=== PATIENT | male | born 1950 | race Caucasian/White ===

== ENCOUNTER → 2020-12-25 16:30 | Outpatient (CLI) | payer MEDICARE, MEDICAID, SELFPAY ==
[2020-12-26 09:16] LABS: Basophils # 0.1 K/mm3 (0-0.2); Basophils % 1.1 % (0.1-2.0); Eosinophils # 0.1 K/mm3 (0.0-0.4); Eosinophils % 0.7 % (0.1-12.0); Hematocrit 52.3 % (42.0-52.0); Hemoglobin 16.2 g/dL (14.1-18.0); Lymphocytes % 25.1 % (10-50); Mean Corpuscular Hemoglobin 31.6 pg (27.0-31.2); Mean Corpuscular Volume 101.8 fl (80-94); Mean Platelet Volume 9.1 fl (7.4-10.4); Monocytes # 0.7 K/mm3 (0.1-1.0); Monocytes % 9.2 % (1.7-9.3); Platelet Count 306 K/mm3 (142-424); Red Blood Count 5.13 M/mm3 (4.60-6.20); Red Cell Distribution Width 13.6 % (11.5-17.5); White Blood Count 7.8 K/mm3 (4.8-10.8)
[2020-12-26 10:04] LABS: Alanine Aminotransferase 36 U/L (12-78); Albumin Level 3.2 g/dl (3.5-5.0); Albumin/Globulin Ratio 1.2 (1.1-1.8); Alkaline Phosphatase 103 U/L (38-126); Anion Gap 14.7 mEq/L (5-15); Aspartate Amino Transferase 44 U/L (17-59); Bilirubin,Total 0.5 mg/dl (0.2-1.3); Blood Urea Nitrogen 2 mg/dl (9-20); Calcium 8.6 mg/dl (8.4-10.2); Carbon Dioxide 24 mmol/L (22.0-30.0); Chloride 101 mmol/L (98-107); Estimated Glomerular Filt Rate 298 ml/min (>60); GFR (African American) 361 ML/MIN (>60); Globulin 2.6 g/dL (1.3-3.2); Glucose 87 mg/dl (74-100); Potassium 4.7 mmoL/L (3.5-5.1); Sodium 135 mmol/L (136-145); Total Protein,Serum 5.8 g/dl (6.3-8.2)
[2020-12-26 10:20] LABS: 25-OH Vitamin D, Total 17.1 ng/mL (30-100)
[2020-12-26 10:34] LABS: Thyroid Stimulating Hormone 1.09 uIU/mL (0.465-4.68)
[2020-12-26 10:53] LABS: Vitamin B12 635 pg/mL (239-931)
[2020-12-30 11:08] LABS: Methylmalonic Acid 63 nmol/L (0-378)
== END ==
PROVIDERS: Visit Provider Internal Medicine Adolescent Medicine
DX: Z00.00 Encounter for general adult medical examination without abnormal findings (principal); R41.89 Other symptoms and signs involving cognitive functions and awareness; J43.9 Emphysema, unspecified; G89.29 Other chronic pain; E55.9 Vitamin D deficiency, unspecified; Z79.899 Other long term (current) drug therapy
CPT/HCPCS: 80053; 82131; 82306; 82607; 84443; 85025

== ENCOUNTER → 2021-01-02 18:23 | Outpatient (CLI) | payer MEDICARE, MEDICAID, SELFPAY ==
[2021-01-04 11:16] LABS: Hep A Ab, IgM Negative (Negative); Hepatitis B Core Antibody IgM Negative (Negative); Hepatitis B Surface Antigen Negative (Negative); Hepatitis C Antibody 0.1 s/co ratio (0.0-0.9)
== END ==
PROVIDERS: Visit Provider Internal Medicine Adolescent Medicine
DX: R41.89 Other symptoms and signs involving cognitive functions and awareness; Z00.00 Encounter for general adult medical examination without abnormal findings; R53.83 Other fatigue
CPT/HCPCS: 80074

== ENCOUNTER 2021-04-22 12:07 | Inpatient (IN) | payer MEDICAID, MEDICARE, SELFPAY ==
[2021-04-22] VITALS (11 sets, daily range): BP systolic 119–147; BP diastolic 54–83; PULSE 96–111; RESP 18–28; TEMP 36.7–36.9; O2SAT 96–100; BMI 27.4; BMI 19.6
--- NOTE | 2021-04-22 | ECG_ITS ---
APPROVED REPORT Exam: Resting ECG HR:112 bpm ECG Measurements Heart Rate [address] 170 P 78 QRSd 82 QRS 68 QT 330 T 77 QTc 396 Conclusion SINUS TACHYCARDIA MODERATE ST DEPRESSION [0.05+ mV ST DEPRESSION] ABNORMAL ECG UNCONFIRMED REPORT Electronically signed by : Marques Logan MD 04/26/2021 16:12:52
--- NOTE | 2021-04-22 12:23 | XR_ITS ---
FINAL REPORT CLINICAL HISTORY: dyspnea, smoker FINDINGS: A single portable view of the chest was obtained. The heart size and pulmonary vascularity are within normal limits. The mediastinum is within normal limits. There are mild pulmonary opacities, right greater than left, favor scarring. No acute pulmonary abnormality is identified. The bony thorax is intact. IMPRESSION: Mild pulmonary opacities, right greater the left, favor scarring. Follow-up radiographs may be helpful. Reviewed, Interpreted and Dictated by Alban Dailey III, MD Transcribed by JOHN Hankins Authenticated by Alban Dailey III, MD on 04/22/2021 02:42:10 PM [facility]
[2021-04-22 12:32] LABS: Basophils # 0.1 K/mm3 (0-0.2); Basophils % 0.7 % (0.1-2.0); Eosinophils # 0.1 K/mm3 (0.0-0.4); Eosinophils % 0.8 % (0.1-12.0); Hematocrit 50.4 % (42.0-52.0); Hemoglobin 16.4 g/dL (14.1-18.0); Lymphocytes # 0.9 K/mm3 (0.7-4.5); Lymphocytes % 9.5 % (10-50); Mean Corpuscular HGB Conc 32.5 g/dL (31.8-35.4); Mean Corpuscular Hemoglobin 33.3 pg (27.0-31.2); Mean Corpuscular Volume 102.5 fl (80-94); Mean Platelet Volume 8.3 fl (7.4-10.4); Monocytes # 0.8 K/mm3 (0.1-1.0); Monocytes % 8.4 % (1.7-9.3); Neutrophils # 7.5 K/mm3 (1.8-7.8); Neutrophils % 80.6 % (37.0-80.0); Platelet Count 284 K/mm3 (142-424); Red Blood Count 4.91 M/mm3 (4.60-6.20); Red Cell Distribution Width 12.9 % (11.5-17.5); White Blood Count 9.3 K/mm3 (4.8-10.8)
--- NOTE | 2021-04-22 13:00 | PC.NURSE ---
lab redrawing blood r/t hemolysis, lab is to let RT know when they can have blood for vbg
--- NOTE | 2021-04-22 13:04 | HMH.EDGENADL ---
ED Disposition Clinical Impression: COPD (chronic obstructive pulmonary disease) Disposition: Admitted As Inpatient Condition on Discharge: Good Time of Disposition: 18:15 - Critical Care Critical Care Time: No Attestation: On 04/22/21, the high probability of a clinically significant, sudden or life threatening deterioration of the following system(s) required my full and direct attention, intervention and personal management. The time I documented below is in addition to time spent performing reported procedures but includes the following listed in this critical care notation. Medical Decision Making - Medical Records Medical records reviewed: Yes: I reviewed the patient's medical records. - Jason Inquiry Pt receiving controlled substance: No Vital Signs: 04/22/21 12:07 04/22/21 12:30 04/22/21 13:00 Temperature 98.0 F Temperature Source Oral Pulse Rate 111 H 108 H Pulse Rate [Right] 110 H Respiratory Rate 20 18 28 H Blood Pressure 141/77 H 147/83 H Blood Pressure [Right Arm] 145/75 H Blood Pressure Mean 98 91 Blood Pressure Mean [Right Arm] 98 Blood Pressure Source [Right Arm] Automatic Cuff Blood Pressure Position [Right Arm] Sitting 02 Sat by Pulse Oximetry 100 97 96 Oxygen Delivery Method Nasal Cannula Nasal Cannula Nasal Cannula Oxygen Flow Rate (LPM) 2 6 6 04/22/21 13:30 04/22/21 14:30 04/22/21 14:50 Temperature 98.0 F Temperature Source Pulse Rate 111 H 105 H 105 H Pulse Rate [Right] Respiratory Rate 28 H 28 H 28 H Blood Pressure 126/78 126/54 L 126/54 L Blood Pressure [Right Arm] Blood Pressure Mean 87 78 Blood Pressure Mean [Right Arm] Blood Pressure Source [Right Arm] Blood Pressure Position [Right Arm] 02 Sat by Pulse Oximetry 98 99 Oxygen Delivery Method BiPAP BiPAP BiPAP Oxygen Flow Rate (LPM) - Lab Data Lab results reviewed: Yes: I reviewed the patient's lab results. Lab Results 04/22/21 12:05: WBC 9.3, RBC 4.91, Hgb 16.4, Hct 50.4, MCV 102.5 H, MCH 33.3 H, MCHC 32.5, RDW 12.9, Plt Count 284, MPV 8.3, Neut % (Auto) 80.6 H, Lymph % (Auto) 9.5 L, [place] % (Auto) 8.4, Eos % (Auto) 0.8, Baso % (Auto) 0.7, Neut # (Auto) 7.5, Lymph # (Auto) 0.9, [place] # (Auto) 0.8, Eos # (Auto) 0.1, Baso # (Auto) 0.1 04/22/21 12:05: Sodium 127 L, Potassium 4.7, Chloride 94 L, Carbon Dioxide 27, Anion Gap 10.7, BUN 9, Creatinine 0.50 L, Estimated Creat Clear 77, Estimated GFR 165, Est GFR ( Amer) 200, Glucose 86, Calcium 8.3 L, Total Bilirubin 1.1, AST 48, ALT 40, Alkaline Phosphatase 92, Troponin I < 0.01, Total Protein 7.0, Albumin 3.9, Globulin 3.1, Albumin/Globulin Ratio 1.3 04/22/21 12:05: SARS-CoV-2 (PCR) Not detected, Influenza A Untype (PCR) Not detected, Influenza Type B (PCR) Not detected 04/22/21 12:38: VBG pH 7.38, VBG pCO2 41.1, VBG pO2 42.8 H, VBG HCO3 24.0, VBG Total CO2 25.2, VBG O2 Saturation 80.1 H, VBG Base Excess -1.1 Result diagrams: 04/22/21 12:05 04/22/21 12:05 Orders (Tests/Meds): ED MEDICATIONS Generic Name Dose Route Start Last Admin Trade Name Freq PRN Reason Stop Dose Admin Albuterol/Ipratropium 3 ml 04/22/21 14:50 04/22/21 18:15 Ipratropium/Albuterol 3 Ml Neb 05/22/21 14:49 3 ml Q4RT FLORINDA Administration Albuterol/Ipratropium 3 ml 04/22/21 17:48 Ipratropium/Albuterol 3 Ml Neb 05/22/21 17:47 Q1HP PRN Shortness Of Breath Ceftriaxone Sodium 1 gm/ 50 mls @ 100 mls/hr 04/22/21 16:00 04/22/21 16:14 Sodium Chloride IV 05/06/21 15:59 100 mls/hr Q24H FLORINDA Administration Azithromycin 500 mg/ Sodium 250 mls @ 250 mls/hr 04/22/21 15:00 04/22/21 16:40 Chloride IV 05/06/21 14:59 250 mls/hr Q24H FLORINDA Administration Methylprednisolone Sodium Succinate 40 mg 04/22/21 15:00 04/22/21 16:40 Methylprednisolone Sod Succ 40mg Vial IV 05/22/21 14:59 40 mg Q8H FLORINDA Administration Nicotine 21 mg 04/22/21 18:00 04/22/21 18:30 Nicotine 21mg/24hr Patch TD 05/22/21 17:59 21 mg
--- NOTE | 2021-04-22 13:08 | PC.NURSE ---
ER contacted RT to come down and place pt on bipap
[2021-04-22 13:11] LABS: Chloride 94 mmol/L (98-107); Sodium 127 mmol/L (136-145)
[2021-04-22 13:12] LABS: Potassium 4.7 mmoL/L (3.5-5.1)
[2021-04-22 13:14] LABS: Alanine Aminotransferase 40 U/L (12-78); Albumin Level 3.9 g/dl (3.5-5.0); Albumin/Globulin Ratio 1.3 (1.1-1.8); Alkaline Phosphatase 92 U/L (38-126); Anion Gap 10.7 mEq/L (5-15); Aspartate Amino Transferase 48 U/L (17-59); Bilirubin,Total 1.1 mg/dl (0.2-1.3); Blood Urea Nitrogen 9 mg/dl (9-20); Calcium 8.3 mg/dl (8.4-10.2); Carbon Dioxide 27 mmol/L (22.0-30.0); Creatinine Clearance Estimated 77 mL/min (50-200); Estimated Glomerular Filt Rate 165 ml/min (>60); GFR (African American) 200 ML/MIN (>60); Globulin 3.1 g/dL (1.3-3.2); Glucose 86 mg/dl (74-100)
[2021-04-22 13:14] LABS: VBG Base Excess -1.1 mmol/L (-2.4-2.3); VBG Oxygen Saturation 80.1 % (50-70); VBG PCO2 41.1 mmol/L (35-51); VBG PH 7.38 mmol/L (7.31-7.41); VBG PO2 42.8 mmol/L (28-40); VBG Total CO2 25.2 mmol/L (23-27)
--- NOTE | 2021-04-22 13:21 | PC.NURSE ---
respiratory here to give neb tx and place pt on bipap
[2021-04-22 13:27] LABS: Troponin I < 0.01 ng/ml (0.00-0.034)
[2021-04-22 13:51] LABS: Coronavirus 19, PCR Not Detected (NotDetected); Influenza A, PCR Not Detected (NotDetected); Influenza B, PCR Not Detected (NotDetected)
--- NOTE | 2021-04-22 14:19 | PC.NURSE ---
MATTHEW MEJIA speaking with Dr. Logan
--- NOTE | 2021-04-22 14:49 | PC.NURSE ---
called report to angel cobian on second floor at this time, states she will send staff to transport pt
--- NOTE | 2021-04-22 15:13 | HMH.PHAVTE ---
[facility] Pharmacy VTE Monitoring - Patient Demographics Admission date: 04/22/21 Report Date: 04/22/21 Time: 15:13 Allergies/Adverse Reactions: Patient Allergies No Known Allergies Allergy (Verified 04/22/21 12:23) Height: 1.68 m Weight: 77.111 kg - VTE Risk Labs: VTE Related Lab Results Hgb 16.4 g/dL (14.1-18.0) 04/22/21 12:05 Hct 50.4 % (42.0-52.0) 04/22/21 12:05 Plt Count 284 K/mm3 (142-424) 04/22/21 12:05 BUN 9 mg/dl (9-20) 04/22/21 12:05 Creatinine 0.50 mg/dl (0.66-1.25) L 04/22/21 12:05 Estimated Creat Clear 77 mL/min (50-200) 04/22/21 12:05 VTE Score: 3 VTE Risk Level: Low Risk - Prophylaxis VTE Prophylaxis Ordered?: Yes Types of VTE Prophylaxis: TEDS Knee High Location of Applied Device: Bilateral Lower Extremeties
--- NOTE | 2021-04-22 17:49 | HMH.HP ---
*Admission Date: 04/22/21 *Chief complaint: Shortness of air and cough *History of present illness: 70-year-old white male, heavy smoker of 2 packs/cigarettes daily, which she is done for many many years, who has significant emphysema, is on trilogy inhalers at home. Came to the hospital with shortness of air, coughing, sputum production, he notes that he has had this for about 2 days since he came down a flight of stairs and became breathless without improving. In the ER he was found to be hypoxic, dyspneic, improved with some BiPAP and steroids, transferred to floor for further evaluation and treatment of COPD exacerbation. [facility] History I have reviewed the patient's past medical history: Yes Medical History: Reports:: Chronic Obstructive Pulmonary Disease (COPD), Hyperlipidemia, Hypertension *Have you ever received a pneumonia vaccine?: Yes *Have you received a flu vaccine this season?: Yes - *Social History Last grade of school completed: 5th or 6th Smoking Status: Current every day smoker # Packs/Day (cigarettes): 2 Alcohol Intake: current Alcohol Intake Frequency:: 3 or more drinks per day *Occupational Status:: retired Household Members: friend(s) *Travel in the last 8 weeks: None Family Hx:: Unable to obtain Review of Systems - Review of Systems Review of systems:: pertinent systems reviewed and negative unless documented below Meds Home Medications Medication Instructions Recorded Confirmed Type Fluticasone/Umeclidin/Vilanter 1 dose IH DAILY 04/22/21 04/22/21 History [Sharon Black 100-62.5-25] Allergies Allergy/AdvReac Type Severity Reaction Status Date / Time No Known Allergies Allergy Verified 04/22/21 12:23 Exam Vital signs and Labs for Last 24 Hours: Temp Pulse Resp BP Pulse Ox 98.4 F 108 H 20 119/64 96 04/22/21 15:18 04/22/21 15:18 04/22/21 15:18 04/22/21 15:18 04/22/21 16:27 Laboratory Results - last 24 hr 04/22/21 12:05: WBC 9.3, RBC 4.91, Hgb 16.4, Hct 50.4, MCV 102.5 H, MCH 33.3 H, MCHC 32.5, RDW 12.9, Plt Count 284, MPV 8.3, Neut % (Auto) 80.6 H, Lymph % (Auto) 9.5 L, [place] % (Auto) 8.4, Eos % (Auto) 0.8, Baso % (Auto) 0.7, Neut # (Auto) 7.5, Lymph # (Auto) 0.9, [place] # (Auto) 0.8, Eos # (Auto) 0.1, Baso # (Auto) 0.1 04/22/21 12:05: Sodium 127 L, Potassium 4.7, Chloride 94 L, Carbon Dioxide 27, Anion Gap 10.7, BUN 9, Creatinine 0.50 L, Estimated Creat Clear 77, Estimated GFR 165, Est GFR ( Amer) 200, Glucose 86, Calcium 8.3 L, Total Bilirubin 1.1, AST 48, ALT 40, Alkaline Phosphatase 92, Troponin I < 0.01, Total Protein 7.0, Albumin 3.9, Globulin 3.1, Albumin/Globulin Ratio 1.3 04/22/21 12:05: SARS-CoV-2 (PCR) Not detected, Influenza A Untype (PCR) Not detected, Influenza Type B (PCR) Not detected 04/22/21 12:38: VBG pH 7.38, VBG pCO2 41.1, VBG pO2 42.8 H, VBG HCO3 24.0, VBG Total CO2 25.2, VBG O2 Saturation 80.1 H, VBG Base Excess -1.1 I & O for Last 24 hours: Intake & Output 04/20/21 04/21/21 04/22/21 04/23/21 11:59 11:59 11:59 11:59 Weight 170 lb - Constitutional moderate distress, thin, chronically ill appearing, disheveled - *Routine HEENT Exam Head: Present: normocephalic Eye: Present: EOMI, PERRL ENT: Present: mucous membranes dry - *Routine Neck Exam Present: supple. Absent: lymphadenopathy - *Routine Respiratory Exam Present: prolonged expiratory phase, rales, rhonchi, wheezes (Musical wheezes in all lung hurtado with crackles) - *Routine Cardiovascular Exam Present: RRR - *Routine Abdominal Exam Present: soft, normoactive bowel sounds. Absent: tenderness - *Routine Rectal Exam Rectal:: deferred - *Routine Genitalia Exam Genitalia:: deferred - *Routine Extremities Exam Absent: cyanosis, clubbing, edema - *Routine Skin Exam Present: dry, warm. Absent: rash Comments: Multiple tattoos of variable quality on arms and chest - *Routine Neurological Exam Present: alert, oriented X3 Assessment and Plan (1) COPD (c
[2021-04-23] VITALS (10 sets, daily range): BP systolic 113–157; BP diastolic 53–86; PULSE 83–110; RESP 16–31; TEMP 36.4–36.6; O2SAT 94–100; BMI 19.5
[2021-04-23 07:19] LABS: Basophils % 0.1 % (0.1-2.0); Eosinophils % 0.1 % (0.1-12.0); Hematocrit 46.9 % (42.0-52.0); Hemoglobin 14.9 g/dL (14.1-18.0); Lymphocytes # 0.9 K/mm3 (0.7-4.5); Lymphocytes % 11.4 % (10-50); Mean Corpuscular HGB Conc 31.9 g/dL (31.8-35.4); Mean Corpuscular Hemoglobin 32.6 pg (27.0-31.2); Mean Corpuscular Volume 102.2 fl (80-94); Monocytes # 0.3 K/mm3 (0.1-1.0); Monocytes % 3.5 % (1.7-9.3); Neutrophils # 6.5 K/mm3 (1.8-7.8); Neutrophils % 84.9 % (37.0-80.0); Platelet Count 284 K/mm3 (142-424); Red Blood Count 4.59 M/mm3 (4.60-6.20); Red Cell Distribution Width 12.9 % (11.5-17.5); White Blood Count 7.6 K/mm3 (4.8-10.8)
[2021-04-23 07:34] LABS: Anion Gap 10.4 mEq/L (5-15); Blood Urea Nitrogen 15 mg/dl (9-20); Calcium 8.9 mg/dl (8.4-10.2); Carbon Dioxide 29 mmol/L (22.0-30.0); Chloride 99 mmol/L (98-107); Creatinine Clearance Estimated 62 mL/min (50-200); Estimated Glomerular Filt Rate 214 ml/min (>60); GFR (African American) 259 ML/MIN (>60); Glucose 174 mg/dl (74-100); Potassium 4.4 mmoL/L (3.5-5.1); Sodium 134 mmol/L (136-145)
--- NOTE | 2021-04-23 09:07 | HMH.PHAINT ---
Home med rec complete
--- NOTE | 2021-04-23 10:12 | HMH.ACPN2 ---
Internal Medicine - PN: Subj *Date: 04/23/21 *Time: 10:54 Interval history: 70-year-old male with severe COPD. Chronic oxygen requirement with 2 L at night. Was doing well overnight on 3 to 4 L but then switched to BiPAP this morning as he was feeling more short of breath. Continues to sound tight on exam. Higher than baseline oxygen requirement at this time. Afebrile. Denies nausea, vomiting, chest pain, fatigue. Tolerating antibiotics and steroids. tolerating PO intake. Exam Vital signs and Labs for Last 24 Hours: Temp Pulse Resp BP Pulse Ox 97.8 F 106 H 26 H 149/86 H 100 04/23/21 07:57 04/23/21 07:57 04/23/21 07:57 04/23/21 07:57 04/23/21 07:57 Laboratory Results - last 24 hr 04/22/21 12:05: WBC 9.3, RBC 4.91, Hgb 16.4, Hct 50.4, MCV 102.5 H, MCH 33.3 H, MCHC 32.5, RDW 12.9, Plt Count 284, MPV 8.3, Neut % (Auto) 80.6 H, Lymph % (Auto) 9.5 L, [place] % (Auto) 8.4, Eos % (Auto) 0.8, Baso % (Auto) 0.7, Neut # (Auto) 7.5, Lymph # (Auto) 0.9, [place] # (Auto) 0.8, Eos # (Auto) 0.1, Baso # (Auto) 0.1 04/22/21 12:05: Sodium 127 L, Potassium 4.7, Chloride 94 L, Carbon Dioxide 27, Anion Gap 10.7, BUN 9, Creatinine 0.50 L, Estimated Creat Clear 77, Estimated GFR 165, Est GFR ( Amer) 200, Glucose 86, Calcium 8.3 L, Total Bilirubin 1.1, AST 48, ALT 40, Alkaline Phosphatase 92, Troponin I < 0.01, Total Protein 7.0, Albumin 3.9, Globulin 3.1, Albumin/Globulin Ratio 1.3 04/22/21 12:05: SARS-CoV-2 (PCR) Not detected, Influenza A Untype (PCR) Not detected, Influenza Type B (PCR) Not detected 04/22/21 12:38: VBG pH 7.38, VBG pCO2 41.1, VBG pO2 42.8 H, VBG HCO3 24.0, VBG Total CO2 25.2, VBG O2 Saturation 80.1 H, VBG Base Excess -1.1 04/23/21 06:00: Sodium 134 L, Potassium 4.4, Chloride 99, Carbon Dioxide 29, Anion Gap 10.4, BUN 15 D, Creatinine 0.40 L, Estimated Creat Clear 62, Estimated GFR 214, Est GFR ( Amer) 259 D, Glucose 174 H D, Calcium 8.9 04/23/21 06:52: WBC 7.6, RBC 4.59 L, Hgb 14.9, Hct 46.9, MCV 102.2 H, MCH 32.6 H, MCHC 31.9, RDW 12.9, Plt Count 284, MPV 8.0, Neut % (Auto) 84.9 H, Lymph % (Auto) 11.4, [place] % (Auto) 3.5, Eos % (Auto) 0.1, Baso % (Auto) 0.1, Neut # (Auto) 6.5, Lymph # (Auto) 0.9, [place] # (Auto) 0.3, Eos # (Auto) 0.0, Baso # (Auto) 0.0 I & O for Last 24 hours: Intake & Output 04/20/21 04/21/21 04/22/21 04/23/21 23:59 23:59 23:59 23:59 Intake Total 360 / 360 300 / 300 Output Total 450 / 450 Balance 360 / 60 -150 / -150 Weight 62.227 kg 61.825 kg Narrative: - Constitutional Mild distress, thin, chronically ill appearing, disheveled - *Routine HEENT Exam Head: Present: normocephalic Eye: Present: EOMI, PERRL ENT: Present: mucous membranes dry - *Routine Neck Exam Present: supple. Absent: lymphadenopathy - *Routine Respiratory Exam Present: prolonged expiratory phase, rales, rhonchi, wheezes (Musical wheezes in all lung hurtado with crackles) - *Routine Cardiovascular Exam Present: RRR - *Routine Abdominal Exam Present: soft, normoactive bowel sounds. Absent: tenderness - *Routine Extremities Exam Absent: cyanosis, clubbing, edema - *Routine Skin Exam Present: dry, warm. No rash, Multiple tattoos of variable quality on arms and chest - *Routine Neurological Exam Present: alert, oriented X3 Assessment and Plan (1) Acute on chronic respiratory failure with hypoxemia Status: Acute Category: Medical Code(s): J96.21 - Acute and chronic respiratory failure with hypoxia (2) COPD (chronic obstructive pulmonary disease) Status: Acute Category: Medical Code(s): J44.9 - Chronic obstructive pulmonary disease, unspecified (3) Tobacco use disorder Status: Chronic Category: Medical Code(s): F17.200 - Nicotine dependence, unspecified, uncomplicated - Assessment and plan all Dx Assessment and Plan for all problems:: 70-year-old male with acute on chronic hypoxemic respiratory failure due to COPD exacerbation. Continues to require intermittent BiPAP t
--- NOTE | 2021-04-23 19:04 | PC.NURSE ---
Pt has done well this shift. Bipap used PRN t/o this shift d/t pt work of breathing. Pt responds well to wearing bipap.Appetite has been fair this shift. No other acute changes or complaints will continue to monitor.
[2021-04-24] VITALS (17 sets, daily range): BP systolic 108–158; BP diastolic 59–85; PULSE 94–141; RESP 18–33; TEMP 36.3–37.2; O2SAT 96–100; BMI 19.5
[2021-04-24 06:59] LABS: Anion Gap 10.7 mEq/L (5-15); Blood Urea Nitrogen 21 mg/dl (9-20); Carbon Dioxide 28 mmol/L (22.0-30.0); Chloride 102 mmol/L (98-107); Creatinine Clearance Estimated 62 mL/min (50-200); Potassium 4.7 mmoL/L (3.5-5.1); Sodium 136 mmol/L (136-145)
[2021-04-24 07:00] LABS: Estimated Glomerular Filt Rate 214 ml/min (>60); GFR (African American) 259 ML/MIN (>60); Glucose 174 mg/dl (74-100)
[2021-04-24 07:16] LABS: Basophils # 0.1 K/mm3 (0-0.2); Basophils % 0.3 % (0.1-2.0); Eosinophils % 0.1 % (0.1-12.0); Hematocrit 49.9 % (42.0-52.0); Hemoglobin 15.3 g/dL (14.1-18.0); Lymphocytes # 1.4 K/mm3 (0.7-4.5); Lymphocytes % 7.5 % (10-50); Mean Corpuscular HGB Conc 30.7 g/dL (31.8-35.4); Mean Corpuscular Hemoglobin 32.5 pg (27.0-31.2); Mean Platelet Volume 8.9 fl (7.4-10.4); Monocytes # 0.7 K/mm3 (0.1-1.0); Monocytes % 3.9 % (1.7-9.3); Neutrophils # 16.8 K/mm3 (1.8-7.8); Neutrophils % 88.3 % (37.0-80.0); Platelet Count 400 K/mm3 (142-424)
[2021-04-24 07:31] LABS: MANUAL DIFFERENTIAL MANUAL DIFFERENTIAL (MANUAL DIFF)
[2021-04-24 09:06] LABS: ABG HCO3 28.9 mmhg (22.0-26.0); ABG Oxygen Saturation 95 % (90-100); ABG PH 7.27 mmol/L (7.35-7.45); ABG PO2 80.1 mmhg (80-100); ABG TCO2 30.9 mmhg (23-27)
[2021-04-24 09:11] LABS: Oxygen 3.5 %
[2021-04-24 09:12] LABS: Allen's Test ACCEPTABLE; Source Left Radial
--- NOTE | 2021-04-24 09:12 | HMH.ACPN2 ---
Internal Medicine - PN: Subj *Date: 04/24/21 *Time: 09:12 Interval history: Overnight patient states he feels better but is required BiPAP therapy during the night because of weakness and shortness of air. When he takes it off this morning to talk to me he does become somewhat dyspneic on 3 L nasal cannula. He has been eating a little better but is globally weak. Exam Vital signs and Labs for Last 24 Hours: Temp Pulse Resp BP Pulse Ox 97.7 F 108 H 24 130/76 100 04/24/21 07:37 04/24/21 07:37 04/24/21 07:37 04/24/21 07:37 04/24/21 07:37 Laboratory Results - last 24 hr 04/24/21 05:44: WBC 19.0 H D, RBC 4.70, Hgb 15.3, Hct 49.9, MCV 106.0 H, MCH 32.5 H, MCHC 30.7 L, RDW 13.0, Plt Count 400 D, MPV 8.9, Neut % (Auto) 88.3 H, Lymph % (Auto) 7.5 L, [place] % (Auto) 3.9, Eos % (Auto) 0.1, Baso % (Auto) 0.3, Neut # (Auto) 16.8 H, Lymph # (Auto) 1.4, [place] # (Auto) 0.7, Eos # (Auto) 0.0, Baso # (Auto) 0.1 04/24/21 05:44: Sodium 136, Potassium 4.7, Chloride 102, Carbon Dioxide 28, Anion Gap 10.7, BUN 21 H D, Creatinine 0.40 L, Estimated Creat Clear 62, Estimated GFR 214, Est GFR ( Amer) 259, Glucose 174 H, Calcium 9.0 I & O for Last 24 hours: Intake & Output 04/21/21 04/22/21 04/23/21 04/24/21 11:59 11:59 11:59 11:59 Intake Total 660 / 660 480 / 480 Output Total 450 / 450 375 / 375 Balance 210 / 210 105 / 105 Weight 136 lb 3.931 oz 136 lb 9.6 oz Narrative: Patient is mildly confused on conversation, has moderate respiratory distress with coughing, rhonchi and some use of accessory muscles without his BiPAP. Lungs have crackles and rhonchi in all lung hurtado. Some expiratory wheezing. Abdomen soft, heart rate regular. He is globally weak but has no focal neurologic deficit except for some memory loss and confusion. ENT exam clear. Assessment and Plan (1) Acute on chronic respiratory failure with hypoxemia Status: Acute Category: Medical Code(s): J96.21 - Acute and chronic respiratory failure with hypoxia (2) COPD (chronic obstructive pulmonary disease) Status: Acute Category: Medical Code(s): J44.9 - Chronic obstructive pulmonary disease, unspecified (3) Tobacco use disorder Status: Chronic Category: Medical Code(s): F17.200 - Nicotine dependence, unspecified, uncomplicated - Assessment and plan all Dx Assessment and Plan for all problems:: Plan to be to continue BiPAP. He may be a candidate for trilogy device at home, I will have pulmonary see him given his severe disease today. PT and OT consultation. He may need skilled care for rehabilitation given his significant cachexia, and severe COPD.
[2021-04-24 09:14] LABS: ABG PCO2 64.7 mmhg (35.0-45.0)
--- NOTE | 2021-04-24 09:30 | HMH.PULMCON ---
*Admission Date: 04/22/21 *Reason for consult:: Acute on chronic hypoxic respiratory failure, COPD exacerbation *History of present illness: Mr. Campbell is a 70-year-old male significant smoking history carries a diagnosis of COPD on triple inhaler therapy presented to the hospital with worsening respiratory smoking and COPD exacerbation intermittently needing BiPAP since admission with no significant improvement and pulmonary was called for further management [facility] History Medical History: Reports:: Chronic Obstructive Pulmonary Disease (COPD), Hyperlipidemia, Hypertension *Have you ever received a pneumonia vaccine?: Yes *Have you received a flu vaccine this season?: Yes - *Social History Last grade of school completed: 5th or 6th Smoking Status: Current every day smoker # Packs/Day (cigarettes): 2 Alcohol Intake: current Alcohol Intake Frequency:: 3 or more drinks per day *Occupational Status:: retired Household Members: friend(s) *Travel in the last 8 weeks: None Family Hx:: Unable to obtain ROS - Cons Reports fatigue - Eyes Denies change in vision - ENT Denies nasal congestion - Card Reports shortness of breath, Reports shortness of breath with activity, Reports leg swelling - Resp Respiratory: Reports chest congestion, Reports cough, Reports excessive phlegm production, Denies coughing up blood, Denies pain on inspiration, Reports cough with sputum production, Reports wheezing - GI Gastrointestingal: Denies: abdominal pain - [place] Musculoskeletal: Reports muscle cramps, Reports muscle weakness - Psych Denies thoughts of hurting/killing others, Denies thoughts of hurting/killing yourself Meds Home Medications Medication Instructions Recorded Confirmed Type Fluticasone/Umeclidin/Vilanter 1 dose IH DAILY 04/22/21 04/22/21 History [Sharon Black 100-62.5-25] Ascorbic Acid 500 mg PO DAILY 04/23/21 04/23/21 History Allergies Allergy/AdvReac Type Severity Reaction Status Date / Time No Known Allergies Allergy Verified 04/22/21 12:23 Exam - Constitutional Constitutional:: Absent: no acute distress, comfortable - HENMT Exam HENMT: Present: normocephalic, atraumatic - Eye Exam Eyes:: Present: normal appearance both eyes and related structures - Neck Exam Neck:: Present: normal visual inspection - Respiratory Exam Respiratory:: Present: respiratory distress, rhonchi, wheezing. Absent: able to speak in complete sentences - Cardiovascular Exam Cardiac:: Present: S1, S2 - GI Exam GI:: Present: soft - Skin Exam Skin: Present: warm - Neurological Exam Neurological: Present: alert, awake - Extremities Exam Extremities: Present: no cyanosis, no clubbing, no edema Internal Medicine - CN: Reslt - Labs CBC & Chem 7: 04/24/21 05:44 04/24/21 05:44 Labs: Short CBC 04/24/21 Range/Units 05:44 WBC 19.0 H D (4.8-10.8) K/mm3 Hgb 15.3 (14.1-18.0) g/dL Hct 49.9 (42.0-52.0) % Plt Count 400 D (142-424) K/mm3 BMP 04/24/21 05:44 Sodium 136 Potassium 4.7 Chloride 102 Carbon Dioxide 28 BUN 21 H D Creatinine 0.40 L Glucose 174 H Calcium 9.0 - ABG Interpretation ABG results: 04/22/21 04/24/21 12:38 08:47 ABG pH 7.27 L ABG pCO2 64.7 H ABG pO2 80.1 ABG HCO3 28.9 H ABG Total CO2 30.9 H ABG O2 Saturation 95 ABG Base Excess 2.0 VBG pH 7.38 VBG pCO2 41.1 VBG pO2 42.8 H VBG HCO3 24.0 VBG Total CO2 25.2 VBG O2 Saturation 80.1 H VBG Base Excess -1.1 Assessment and Plan (1) Acute on chronic respiratory failure with hypoxemia Status: Acute Category: Medical Code(s): J96.21 - Acute and chronic respiratory failure with hypoxia (2) COPD (chronic obstructive pulmonary disease) Status: Acute Category: Medical Code(s): J44.9 - Chronic obstructive pulmonary disease, unspecified (3) Tobacco use disorder Status: Chronic Category: Medical Code(s): F17.200 - Nicotine dependence, uns
--- NOTE | 2021-04-24 09:33 | XR_ITS ---
FINAL REPORT CLINICAL HISTORY: hypoxia COMPARISON: 04/22/2021 FINDINGS: SINGLE VIEW CHEST The heart is normal in size. The mediastinum is unremarkable. The lungs are hyperinflated consistent with COPD. There is mild scarring. There is mild right base atelectasis or pneumonia. There is no pneumothorax. IMPRESSION: Right base atelectasis or pneumonia. Reviewed, Interpreted and Dictated by Alban Dailey III, MD Transcribed by Glendy Ponce Authenticated by Alban Dailey III, MD on 04/24/2021 11:08:37 AM [facility]
--- NOTE | 2021-04-24 09:58 | HMH.OTEV ---
OT Inpatient Evaluation Rehab OT IP Evaluation Start: 04/24/21 09:13 Freq: ONCE Status: Complete Protocol: Document 04/24/21 09:51 YAKOVPANCHO (Rec: 04/24/21 09:57 ALEX [id number]) Rehab OT IP Assessment Subjective History 70-year-old white male, heavy smoker of 2 packs/cigarettes daily, which she is done for many many years, who has significant emphysema, is on trilogy inhalers at home. Came to the hospital with shortness of air, coughing, sputum production, he notes that he has had this for about 2 days since he came down a flight of stairs and became breathless without improving. In the ER he was found to be hypoxic, dyspneic, improved with some BiPAP and steroids, transferred to floor for further evaluation and treatment of COPD exacerbation . [facility] History I have reviewed the patient's past medical history: Yes Medical History: Reports:: Chronic Obstructive Pulmonary Disease (COPD), Hyperlipidemia . Patient lives at home with dtr in 1 story home with no ROSEMARY. Patient independent with ADLs and used a RW to ambulate within the home. Subjective I can get up. Instructed Patient on safety awareness during bed mobility, transfers, ambulation and ADLs during evaluation. Patient completed bed mobility tasks independently. Patient required SBA for transfers for safety. Patient completed ADLs independently with exteded time 2* SOB. Patient is currently on 3.5L of 02 with SPO2 dropping to 85% during OOB. ~45 sec recover with needing visual and verbal
--- NOTE | 2021-04-24 10:05 | HMH.PTEV ---
Physical Therapy Evaluation Rehab PT IP Evaluation Start: 04/24/21 09:13 Freq: ONCE Status: Active Protocol: Document 04/24/21 09:59 DANILO (Rec: 04/24/21 10:05 DANILO [id number]) Subjective/History History History 70-year-old white male, heavy smoker of 2 packs/cigarettes daily, which she is done for many many years, who has significant emphysema, is on trilogy inhalers at home. Came to the hospital with shortness of air, coughing, sputum production, he notes that he has had this for about 2 days since he came down a flight of stairs and became breathless without improving. In the ER he was found to be hypoxic, dyspneic, improved with some BiPAP and steroids, transferred to floor for further evaluation and treatment of COPD exacerbation . Subjective Subjective Pt reports c/o SOA but no other complaints - o2 sats after activity 84% - return to 90% after 5 min rest Rehab PT IP Eval Objective Appearance Patient Behavior Appropriate,Cooperative, Anxious Patient Orientation Place,Name,Birthday,Year Difficulty following instructions none Speech Pattern Baseline Intonation,Baseline Volume Ambulation Patient Able to Ambulate Yes Ambulation Observation IP General Gait Pattern Observation Ataxic Gait,Shuffling Step Ambulation Distance (feet) 25 Ambulation Assistive Device Rolling Walker Ambulation Ability Contact Guard/Hand Hold Balance Ability to Arise Able, uses arms to help Sitting Balance Steady, safe Standing Balance Steady, wide stance Dynamic Sitting Balance Ability Good Dynamic Standing Balance Ability Fair Transfers Bed Transfer Ability Independent Chair Transfer Ability Independent Sit to Stand Bed Transfer Ability Supervision/Stand by,Contact Guard/Hand Hold Sit to Stand Chair Transfer Ability Supervision/Stand by,Contact Guard/Hand Hold ROM All Extremities PT ROM Status WFL MMT All Extremities PT MMT
--- NOTE | 2021-04-24 10:26 | SW/DCPLANNER ---
Addendum entered by Michelle Garay 04/24/21 14:58: Patients sister phone number is [phone] Original Note: I attempted to contact patients niece listed in demographics: this is the wrong number for niece listed. I will speak with this patient this AM regarding other contacts to discuss home situation.
[2021-04-24 11:46] LABS: Lymphocytes % 1 % (10-50); Macrocytosis 2+; Monocytes % 4 % (2-9); Neutrophils % 95 % (42-76); Platelet Estimate Normal; Total Cells Counted 100
[2021-04-24 13:27] LABS: ABG Base Excess -0.2 mmol/L (-2.4-2.3); ABG HCO3 25.2 mmhg (22.0-26.0); ABG Oxygen Saturation 95 % (90-100); ABG PCO2 45.9 mmhg (35.0-45.0); ABG PH 7.36 mmol/L (7.35-7.45); ABG PO2 72.2 mmhg (80-100); ABG TCO2 26.6 mmhg (23-27)
[2021-04-24 14:34] LABS: Allen's Test acceptable; Source Left Radial
[2021-04-24 14:35] LABS: Oxygen 25 %; Pressure Support bipap 16/8; Vent Rate 20
[2021-04-25] VITALS (13 sets, daily range): BP systolic 111–158; BP diastolic 61–92; PULSE 72–115; RESP 20–27; TEMP 36.3–36.5; O2SAT 93–98; BMI 19.0
--- NOTE | 2021-04-25 05:16 | PC.NURSE ---
pt has rested intermittently t/o shift, has worn bipap t/o shift, no complaints of pain or SOA
[2021-04-25 06:32] LABS: Basophils % 0.4 % (0.1-2.0); Eosinophils % 0.2 % (0.1-12.0); Hematocrit 49.9 % (42.0-52.0); Hemoglobin 15.5 g/dL (14.1-18.0); Lymphocytes # 0.6 K/mm3 (0.7-4.5); Lymphocytes % 6.5 % (10-50); Mean Corpuscular Hemoglobin 32.8 pg (27.0-31.2); Mean Corpuscular Volume 105.8 fl (80-94); Mean Platelet Volume 8.9 fl (7.4-10.4); Monocytes # 0.5 K/mm3 (0.1-1.0); Monocytes % 5.3 % (1.7-9.3); Neutrophils % 87.5 % (37.0-80.0); Platelet Count 287 K/mm3 (142-424); Red Blood Count 4.72 M/mm3 (4.60-6.20); White Blood Count 9.2 K/mm3 (4.8-10.8)
[2021-04-25 06:36] LABS: Anion Gap 11.7 mEq/L (5-15); Blood Urea Nitrogen 32 mg/dl (9-20); Calcium 9.1 mg/dl (8.4-10.2); Carbon Dioxide 32 mmol/L (22.0-30.0); Chloride 102 mmol/L (98-107); Creatinine Clearance Estimated 60 mL/min (50-200); Estimated Glomerular Filt Rate 165 ml/min (>60); GFR (African American) 200 ML/MIN (>60); Glucose 133 mg/dl (74-100); Potassium 4.7 mmoL/L (3.5-5.1); Sodium 141 mmol/L (136-145)
[2021-04-25 07:00] LABS: MANUAL DIFFERENTIAL MANUAL DIFFERENTIAL (MANUAL DIFF)
[2021-04-25 07:31] LABS: Lymphocytes % 7 % (10-50); Monocytes % 2 % (2-9); Neutrophils % 91 % (42-76); Platelet Estimate Normal; RBC Morphology Normal; Total Cells Counted 100
--- NOTE | 2021-04-25 09:07 | P.PN_ITS ---
Internal Medicine - PN: Subj *Date: 04/25/21 *Time: 09:07 Interval history: Appreciate pulmonary evaluation. Patient on BiPAP, appears more comfortable this morning. Alert and pleasant. Exam Vital signs and Labs for Last 24 Hours: Temp Pulse Resp BP Pulse Ox 97.4 F L 96 H 21 148/83 H 96 04/25/21 08:00 04/25/21 08:00 04/25/21 08:00 04/25/21 08:00 04/25/21 08:00 Laboratory Results - last 24 hr 04/24/21 05:44: Total Counted 100, Neutrophils % (Manual) 95 H, Lymphocytes % (Manual) 1 L, Monocytes % (Manual) 4, Platelet Estimate Normal, Macrocytosis 2+ 04/24/21 08:47: Specimen Source Left radial, O2 % 3.5, ABG pH 7.27 L, ABG pCO2 64.7 H, ABG pO2 80.1, ABG HCO3 28.9 H, ABG Total CO2 30.9 H, ABG O2 Saturation 95, ABG Base Excess 2.0, Joseph Test Acceptable 04/24/21 13:00: Specimen Source Left radial, O2 % 25, ABG pH 7.36, ABG pCO2 45.9 H, ABG pO2 72.2 L, ABG HCO3 25.2, ABG Total CO2 26.6, ABG O2 Saturation 95, ABG Base Excess -0.2, Joseph Test acceptable, Vent Rate 20 04/25/21 05:52: WBC 9.2 D, RBC 4.72, Hgb 15.5, Hct 49.9, MCV 105.8 H, MCH 32.8 H, MCHC 31.0 L, RDW 13.0, Plt Count 287 D, MPV 8.9, Neut % (Auto) 87.5 H, Lymph % (Auto) 6.5 L, [place] % (Auto) 5.3, Eos % (Auto) 0.2, Baso % (Auto) 0.4, Neut # (Auto) 8.0 H, Lymph # (Auto) 0.6 L, [place] # (Auto) 0.5, Eos # (Auto) 0.0, Baso # (Auto) 0.0, Total Counted 100, Neutrophils % (Manual) 91 H, Lymphocytes % (Manual) 7 L, Monocytes % (Manual) 2, Platelet Estimate Normal, RBC Morphology Normal 04/25/21 05:52: Sodium 141, Potassium 4.7, Chloride 102, Carbon Dioxide 32 H, Anion Gap 11.7, BUN 32 H D, Creatinine 0.50 L D, Estimated Creat Clear 60, Estimated GFR 165, Est GFR ( Amer) 200 D, Glucose 133 H, Calcium 9.1 I & O for Last 24 hours: Intake & Output 04/22/21 04/23/21 04/24/21 04/25/21 11:59 11:59 11:59 11:59 Intake Total 660 / 660 480 / 480 60 / 60 Output Total 450 / 450 375 / 375 1525 / 1525 Balance 210 / 210 105 / 105 -1465 / -1465 Weight 136 lb 3.931 oz 136 lb 9.6 oz 133 lb Narrative: Rhonchi bilaterally. Moving air slightly better than yesterday. Alert. Oropharynx clear. Heart rate regular. Abdomen soft nontender, extremities warm and dry, appears cachectic. Assessment and Plan (1) Acute on chronic respiratory failure with hypoxemia Status: Acute Category: Medical Code(s): J96.21 - Acute and chronic respiratory failure with hypoxia (2) COPD (chronic obstructive pulmonary disease) Status: Acute Category: Medical Code(s): J44.9 - Chronic obstructive pulmonary disease, unspecified (3) Tobacco use disorder Status: Chronic Category: Medical Code(s): F17.200 - Nicotine dependence, unspecified, uncomplicated (4) Protein-calorie malnutrition, mild Status: Acute Category: Medical Code(s): E44.1 - Mild protein-calorie malnutrition - Assessment and plan all Dx Assessment and Plan for all problems:: Patient stabilized on BiPAP. Appreciate pulmonary following and recommendations. Continue current antibiotics, steroids and nebulizers.
--- NOTE | 2021-04-25 09:12 | P.PN_ITS ---
Internal Medicine - PN: Subj *Date: 04/25/21 *Time: 10:49 Interval history: No acute respiratory vents overnight. Tolerated BiPAP well. Admits improvement in symptoms. Exam - Constitutional Constitutional:: Present: no acute distress, comfortable - HENMT Exam HENMT: Present: normocephalic, atraumatic - Eye Exam Eyes:: Present: normal appearance both eyes and related structures - Neck Exam Neck:: Present: normal visual inspection - Respiratory Exam Respiratory:: Present: able to speak in complete sentences, respiratory distress, wheezing - Cardiovascular Exam Cardiac:: Present: S1, S2 - GI Exam GI:: Present: soft - Skin Exam Skin: Present: warm, no rash - Neurological Exam Neurological: Present: alert, awake, normal cognition - Extremities Exam Extremities: Present: no cyanosis, no clubbing, no edema Assessment and Plan (1) Acute on chronic respiratory failure with hypoxemia Status: Acute Category: Medical Code(s): J96.21 - Acute and chronic respiratory failure with hypoxia (2) COPD (chronic obstructive pulmonary disease) Status: Acute Category: Medical Code(s): J44.9 - Chronic obstructive pulmonary disease, unspecified (3) Tobacco use disorder Status: Chronic Category: Medical Code(s): F17.200 - Nicotine dependence, unspecified, uncomplicated (4) Protein-calorie malnutrition, mild Status: Acute Category: Medical Code(s): E44.1 - Mild protein-calorie malnutrition - Assessment and plan all Dx Assessment and Plan for all problems:: #COPD exacerbation: #Acute on chronic hypoxic respiratory failure: 70-year-old male significant smoking history 3 to 4 packs a day on triple inhaler therapy at home. No recent exacerbations. Admits compliance with inhalers at home. Patient is worsening respiratory distress. Venous blood gas on admission did not show significant hypercarbia. ABG today showed worsening blood gas with hypercarbic respiratory failure. Chest x-ray on admission no significant airspace disease in bilateral interstitial opacities concerning for volume overload/vascular congestion. Patient has been receiving ceftriaxone and azithromycin since admission with DuoNebs every 4 hours scheduled and methylprednisolone 40 every 8hrs. Interval update: Patient tolerated BiPAP well overnight. Respiratory status improved. Auscultation showed improving breath sounds. Leukocytosis improving. Chest x- ray from yesterday showed worsening airspace disease. Current cultures growing yeast, no need for treatment at this point of time. We will continue to monitor. Plan: -Wean BiPAP to nasal cannula currently at 1 L with saturations maintained at 90% and above. Will Closely monitor -Continue Nebs , RT informed. -Continue current antibiotics which include ceftriaxone and azithromycin -Continue current dose of steroids. #Thank you for involving pulmonary in this patient care. We will continue to follow.
--- NOTE | 2021-04-25 09:57 | HMH.ACPN ---
Internal Medicine - PN: Subj *Date: 04/25/21 *Time: 09:57 Exam Vital signs and Labs for Last 24 Hours: Temp Pulse Resp BP Pulse Ox 97.4 F L 96 H 21 148/83 H 98 04/25/21 08:00 04/25/21 08:00 04/25/21 08:00 04/25/21 08:00 04/25/21 08:00 Laboratory Results - last 24 hr 04/24/21 05:44: Total Counted 100, Neutrophils % (Manual) 95 H, Lymphocytes % (Manual) 1 L, Monocytes % (Manual) 4, Platelet Estimate Normal, Macrocytosis 2+ 04/24/21 13:00: Specimen Source Left radial, O2 % 25, ABG pH 7.36, ABG pCO2 45.9 H, ABG pO2 72.2 L, ABG HCO3 25.2, ABG Total CO2 26.6, ABG O2 Saturation 95, ABG Base Excess -0.2, Joseph Test acceptable, Vent Rate 20 04/25/21 05:52: WBC 9.2 D, RBC 4.72, Hgb 15.5, Hct 49.9, MCV 105.8 H, MCH 32.8 H, MCHC 31.0 L, RDW 13.0, Plt Count 287 D, MPV 8.9, Neut % (Auto) 87.5 H, Lymph % (Auto) 6.5 L, [place] % (Auto) 5.3, Eos % (Auto) 0.2, Baso % (Auto) 0.4, Neut # (Auto) 8.0 H, Lymph # (Auto) 0.6 L, [place] # (Auto) 0.5, Eos # (Auto) 0.0, Baso # (Auto) 0.0, Total Counted 100, Neutrophils % (Manual) 91 H, Lymphocytes % (Manual) 7 L, Monocytes % (Manual) 2, Platelet Estimate Normal, RBC Morphology Normal 04/25/21 05:52: Sodium 141, Potassium 4.7, Chloride 102, Carbon Dioxide 32 H, Anion Gap 11.7, BUN 32 H D, Creatinine 0.50 L D, Estimated Creat Clear 60, Estimated GFR 165, Est GFR ( Amer) 200 D, Glucose 133 H, Calcium 9.1 I & O for Last 24 hours: Intake & Output 02/04/23/21 04/24/21 04/25/21 23:59 23:59 23:59 23:59 Intake Total 360 / 360 780 / 780 0 / 0 Output Total 825 / 825 1150 / 1150 375 / 375 Balance 360 / 60 -45 / -45 -1150 / -1150 -315 / -315 Weight 62.227 kg 61.8 kg 61.961 kg 60.328 kg Assessment and Plan (1) Acute on chronic respiratory failure with hypoxemia Status: Acute Category: Medical Code(s): J96.21 - Acute and chronic respiratory failure with hypoxia (2) COPD (chronic obstructive pulmonary disease) Status: Acute Category: Medical Code(s): J44.9 - Chronic obstructive pulmonary disease, unspecified (3) Tobacco use disorder Status: Chronic Category: Medical Code(s): F17.200 - Nicotine dependence, unspecified, uncomplicated (4) Protein-calorie malnutrition, mild Status: Acute Category: Medical Code(s): E44.1 - Mild protein-calorie malnutrition The patient's infection will respond to the chosen ABx?: Yes (EMPIRIC THERAPY) Is the patient receiving the right drug, dose, and route?: Yes Could a more targeted ABx be ordered?: No (NO CULTURES OBTAINED)
[2021-04-25 11:17] LABS: ABG Base Excess 0.2 mmol/L (-2.4-2.3); ABG HCO3 26.3 mmhg (22.0-26.0); ABG Oxygen Saturation 95 % (90-100); ABG PH 7.32 mmol/L (7.35-7.45); ABG PO2 73.7 mmhg (80-100); ABG TCO2 27.9 mmhg (23-27)
[2021-04-25 11:18] LABS: Allen's Test acceptable; Oxygen 25 %; Pressure Support bipap 16/8; Source Left Radial; Vent Rate 20
[2021-04-25 11:20] LABS: ABG PCO2 52.4 mmhg (35.0-45.0)
[2021-04-25 12:19] LABS: ABG Base Excess 0.8 mmol/L (-2.4-2.3); ABG HCO3 26.9 mmhg (22.0-26.0); ABG Oxygen Saturation 88 % (90-100); ABG PH 7.32 mmol/L (7.35-7.45); ABG PO2 56.9 mmhg (80-100); ABG TCO2 28.6 mmhg (23-27)
[2021-04-25 12:25] LABS: Allen's Test acceptable
[2021-04-25 12:27] LABS: ABG PCO2 54.1 mmhg (35.0-45.0)
[2021-04-25 13:02] LABS: Chloride 98 mmol/L (98-107)
[2021-04-25 13:03] LABS: Potassium 4.5 mmoL/L (3.5-5.1); Sodium 136 mmol/L (136-145)
[2021-04-25 13:05] LABS: Alanine Aminotransferase 69 U/L (12-78); Aspartate Amino Transferase 72 U/L (17-59); Blood Urea Nitrogen 32 mg/dl (9-20); Creatinine Clearance Estimated 60 mL/min (50-200); Estimated Glomerular Filt Rate 134 ml/min (>60); GFR (African American) 162 ML/MIN (>60)
[2021-04-25 13:06] LABS: Albumin Level 4.2 g/dl (3.5-5.0); Albumin/Globulin Ratio 1.4 (1.1-1.8); Alkaline Phosphatase 81 U/L (38-126); Anion Gap 13.5 mEq/L (5-15); Bilirubin,Total 0.6 mg/dl (0.2-1.3); Calcium 8.7 mg/dl (8.4-10.2); Carbon Dioxide 29 mmol/L (22.0-30.0); Glucose 150 mg/dl (74-100); Magnesium 2.4 mg/dl (1.6-2.3); Phosphorous 4.8 mg/dl (2.5-4.5); Total Protein,Serum 7.2 g/dl (6.3-8.2)
[2021-04-25 13:29] LABS: Basophils % 0.3 % (0.1-2.0); Hematocrit 51.7 % (42.0-52.0); Hemoglobin 15.8 g/dL (14.1-18.0); Lymphocytes # 0.7 K/mm3 (0.7-4.5); Lymphocytes % 4.8 % (10-50); Mean Corpuscular HGB Conc 30.5 g/dL (31.8-35.4); Mean Corpuscular Hemoglobin 32.5 pg (27.0-31.2); Mean Corpuscular Volume 106.7 fl (80-94); Mean Platelet Volume 8.6 fl (7.4-10.4); Monocytes # 0.8 K/mm3 (0.1-1.0); Monocytes % 5.4 % (1.7-9.3); Neutrophils # 13.3 K/mm3 (1.8-7.8); Neutrophils % 89.4 % (37.0-80.0); Platelet Count 361 K/mm3 (142-424); Red Blood Count 4.85 M/mm3 (4.60-6.20); White Blood Count 14.8 K/mm3 (4.8-10.8)
--- NOTE | 2021-04-25 14:11 | ECG_ITS ---
APPROVED REPORT Exam: Resting ECG HR:114 bpm ECG Measurements Heart Rate 114 AXES OR 140 P 88 QRSd 85 QRS 48 QT 337 T 76 QTc 405 Conclusion SINUS TACHYCARDIA ABNORMAL RHYTHM ECG UNCONFIRMED REPORT Electronically signed by : Marques Logan MD 04/26/2021 16:02:30
[2021-04-25 14:14] LABS: Activated Partial Thrombo Time 23.6 seconds (22.8-30.6)
--- NOTE | 2021-04-25 15:35 | PC.NURSE ---
PT IS AO3X BUT VERY HARD OF HEARING. HAS NOT BEEN ABLE TO TOLERATE COMING OFF THE BIPAP THIS SHIFT. HE BECOMES VERY TACHYPNEIC WITH AUDIBLE WHEEZING NOTED WHEN BIPAP IS REMOVED. HE DID RECEIVE A BATH AND LINEN CHANGE THIS SHIFT. NEW IV TO RIGHT AC. PT FAMILY TOLD THIS RN PT DRINKS AT LEAST 24 BEERS EACH DAY. THIS INFORMATION WAS RELAYED TO DR HERNDON WHO ORDERED CIWA AND ALCH WITHDRAWAL PROTOCOL.
[2021-04-26] VITALS (17 sets, daily range): BP systolic 105–140; BP diastolic 58–87; PULSE 80–120; RESP 20–24; TEMP 36.3–36.7; O2SAT 94–99; BMI 19.1
[2021-04-26 02:55] LABS: Amphetamine/Metha Screen,Urine Negative ng/ml (<1000)
[2021-04-26 02:56] LABS: Barbiturates Screen,Urine Negative ng/ml (<200)
[2021-04-26 02:57] LABS: Benzodiazepines Screen,Urine Negative ng/ml (<200); Cannabinoid Screen,Urine Negative ng/ml (<50)
[2021-04-26 02:58] LABS: Cocaine Screen,Urine Negative ng/ml (<300)
[2021-04-26 02:59] LABS: Methadone Screen,Urine Negative ng/ml (<300); Opiate Screen,Urine Negative ng/ml (<300)
[2021-04-26 03:00] LABS: Phencyclidine Screen,Urine Negative ng/ml (<25)
--- NOTE | 2021-04-26 07:13 | HMH.ACPN2 ---
Internal Medicine - PN: Subj *Date: 04/26/21 *Time: 08:16 Interval history: Patient is remained stable overnight on BiPAP. On 25% oxygen at this time. Appears more comfortable this morning on exam. No complaints of chest pain, nausea, vomiting, diarrhea. Exam Vital signs and Labs for Last 24 Hours: Temp Pulse Resp BP Pulse Ox 97.5 F L 83 23 110/60 97 04/26/21 04:00 04/26/21 06:13 04/26/21 04:00 04/26/21 04:00 04/26/21 06:13 Laboratory Results - last 24 hr 04/25/21 05:52: Total Counted 100, Neutrophils % (Manual) 91 H, Lymphocytes % (Manual) 7 L, Monocytes % (Manual) 2, Platelet Estimate Normal, RBC Morphology Normal 04/25/21 10:58: Specimen Source Left radial, O2 % 25, ABG pH 7.32 L, ABG pCO2 52.4 H, ABG pO2 73.7 L, ABG HCO3 26.3 H, ABG Total CO2 27.9 H, ABG O2 Saturation 95, ABG Base Excess 0.2, Joseph Test acceptable, Vent Rate 20 04/25/21 12:11: Specimen Source r radial, O2 % 2lpm, ABG pH 7.32 L, ABG pCO2 54.1 H, ABG pO2 56.9 L, ABG HCO3 26.9 H, ABG Total CO2 28.6 H, ABG O2 Saturation 88 L, ABG Base Excess 0.8, Joseph Test acceptable 04/25/21 12:15: WBC 14.8 H D, RBC 4.85, Hgb 15.8, Hct 51.7, MCV 106.7 H, MCH 32.5 H, MCHC 30.5 L, RDW 13.0, Plt Count 361 D, MPV 8.6, Neut % (Auto) 89.4 H, Lymph % (Auto) 4.8 L, [place] % (Auto) 5.4, Eos % (Auto) 0.0 L, Baso % (Auto) 0.3, Neut # (Auto) 13.3 H, Lymph # (Auto) 0.7, [place] # (Auto) 0.8, Eos # (Auto) 0.0, Baso # (Auto) 0.0 04/25/21 12:15: APTT 23.6 04/25/21 12:15: Sodium 136, Potassium 4.5, Chloride 98, Carbon Dioxide 29, Anion Gap 13.5, BUN 32 H, Creatinine 0.60 L, Estimated Creat Clear 60, Estimated GFR 134, Est GFR ( Amer) 162, Glucose 150 H, Calcium 8.7, Phosphorus 4.8 H, Magnesium 2.4 H, Total Bilirubin 0.6, AST 72 H, ALT 69, Alkaline Phosphatase 81, Total Protein 7.2, Albumin 4.2, Globulin 3.0, Albumin/Globulin Ratio 1.4 04/26/21 02:00: Urine Opiates Screen Negative, Urine Methadone Screen Negative, Ur Barbituates Screen Negative, Ur Phencyclidine Scrn Negative, Ur Amphetamines Screen Negative, U Benzodiazepines Scrn Negative, Urine Cocaine Screen Negative, U Marijuana (THC) Screen Negative I & O for Last 24 hours: Intake & Output 04/23/21 04/24/21 04/25/21 04/26/21 23:59 23:59 23:59 23:59 Intake Total 780 / 780 0 / 0 474 / 474 Output Total 825 / 825 1150 / 1150 375 / 375 225 / 225 Balance -45 / -45 -1150 / -1150 99 / 99 -225 / -225 Weight 61.8 kg 61.961 kg 60.328 kg 60.384 kg Narrative: Constitutional Constitutional:: Present: no acute distress, comfortable on BiPAP @ 25% O2 - HENMT Exam HENMT: Present: normocephalic, atraumatic - Eye Exam Eyes:: Present: normal appearance both eyes and related structures - Neck Exam Neck:: Present: normal visual inspection - Respiratory Exam Respiratory:: Present: able to speak in complete sentences, respiratory distress, wheezing diffusely - Cardiovascular Exam Cardiac:: Present: RRR, S1, S2 - GI Exam GI:: Present: soft, non-tender - Skin Exam Skin: Present: warm, no rash, numerous non-professional tattoos - Neurological Exam Neurological: Present: alert, awake, normal cognition - Extremities Exam Extremities: Present: no cyanosis, no clubbing, no edema Assessment and Plan (1) Acute on chronic respiratory failure with hypoxemia Status: Acute Category: Medical Code(s): J96.21 - Acute and chronic respiratory failure with hypoxia (2) COPD (chronic obstructive pulmonary disease) Status: Acute Category: Medical Code(s): J44.9 - Chronic obstructive pulmonary disease, unspecified (3) Tobacco use disorder Status: Chronic Category: Medical Code(s): F17.200 - Nicotine dependence, unspecified, uncomplicated (4) Protein-calorie malnutrition, mild Status: Acute Category: Medical Code(s): E44.1 - Mild protein-calorie malnutrition - Assessment and plan all Dx Assessment and Plan for all problems:: Mr. Campbell is a 70-year-old male significant smoking history 3 to 4 packs a day
[2021-04-26 08:57] LABS: Chloride 100 mmol/L (98-107); Sodium 134 mmol/L (136-145)
[2021-04-26 08:58] LABS: Potassium 4.3 mmoL/L (3.5-5.1)
[2021-04-26 09:00] LABS: Blood Urea Nitrogen 33 mg/dl (9-20); Creatinine Clearance Estimated 60 mL/min (50-200); Estimated Glomerular Filt Rate 165 ml/min (>60); GFR (African American) 200 ML/MIN (>60)
[2021-04-26 09:01] LABS: Anion Gap 8.3 mEq/L (5-15); Calcium 8.1 mg/dl (8.4-10.2); Carbon Dioxide 30 mmol/L (22.0-30.0); Glucose 135 mg/dl (74-100)
[2021-04-26 09:03] LABS: Basophils % 0.4 % (0.1-2.0); Eosinophils # 0.1 K/mm3 (0.0-0.4); Hematocrit 49.1 % (42.0-52.0); Hemoglobin 15.5 g/dL (14.1-18.0); Lymphocytes # 0.6 K/mm3 (0.7-4.5); Lymphocytes % 7.1 % (10-50); Mean Corpuscular HGB Conc 31.6 g/dL (31.8-35.4); Mean Corpuscular Hemoglobin 32.6 pg (27.0-31.2); Mean Corpuscular Volume 103.3 fl (80-94); Mean Platelet Volume 9.2 fl (7.4-10.4); Monocytes # 0.5 K/mm3 (0.1-1.0); Monocytes % 5.1 % (1.7-9.3); Neutrophils # 7.6 K/mm3 (1.8-7.8); Neutrophils % 86.4 % (37.0-80.0); Platelet Count 275 K/mm3 (142-424); Red Blood Count 4.75 M/mm3 (4.60-6.20); Red Cell Distribution Width 12.8 % (11.5-17.5); White Blood Count 8.8 K/mm3 (4.8-10.8)
--- NOTE | 2021-04-26 09:14 | P.PN_ITS ---
Internal Medicine - PN: Subj *Date: 04/26/21 *Time: 13:44 Interval history: No acute respiratory vents overnight. Patient tolerated BiPAP well., Weaned to nasal cannula this morning. Tolerating well. Exam - Constitutional Constitutional:: Present: no acute distress, comfortable - HENMT Exam HENMT: Present: normocephalic, atraumatic - Eye Exam Eyes:: Present: normal appearance both eyes and related structures - Neck Exam Neck:: Present: normal visual inspection - Respiratory Exam Respiratory:: Present: able to speak in complete sentences, no respiratory distress, decreased breath sounds, wheezing - Cardiovascular Exam Cardiac:: Present: S1, S2 - GI Exam GI:: Present: soft - Skin Exam Skin: Present: warm - Neurological Exam Neurological: Present: alert, awake, normal cognition - Extremities Exam Extremities: Present: no cyanosis, no clubbing, no edema Assessment and Plan (1) Acute on chronic respiratory failure with hypoxemia Status: Acute Category: Medical Code(s): J96.21 - Acute and chronic respiratory failure with hypoxia (2) COPD (chronic obstructive pulmonary disease) Status: Acute Category: Medical Code(s): J44.9 - Chronic obstructive pulmonary disease, unspecified (3) Tobacco use disorder Status: Chronic Category: Medical Code(s): F17.200 - Nicotine dependence, unspecified, uncomplicated (4) Protein-calorie malnutrition, mild Status: Acute Category: Medical Code(s): E44.1 - Mild protein-calorie malnutrition - Assessment and plan all Dx Assessment and Plan for all problems:: #COPD exacerbation: #Acute on chronic hypoxic respiratory failure: 70-year-old male significant smoking history 3 to 4 packs a day on triple inhaler therapy at home. No recent exacerbations. Admits compliance with inhalers at home. Patient is worsening respiratory distress. Venous blood gas on admission did not show significant hypercarbia. ABG today showed worsening blood gas with hypercarbic respiratory failure. Chest x-ray on admission no significant airspace disease in bilateral interstitial opacities concerning for volume overload/vascular congestion. Patient has been receiving ceftriaxone and azithromycin since admission with DuoNebs every 4 hours scheduled and methylprednisolone 40 every 8hrs. Interval update: Auscultation continue to show bilateral distant breath sounds and mild expiratory wheezing, though improved from prior. Leukocytosis improving. He continued to remain on CIWA protocol. Admits intake of 20-30 beers per day. Plan: -Continue nasal cannula oxygen supplementation to maintain O2 saturation goal of 90% and above. -Continue Nebs , RT informed. Can be changed to Trelegy 100 along with DuoNebs every 6 hours and as needed basis prior to discharge -Continue current antibiotics which include ceftriaxone and azithromycin, can be weaned to levofloxacin to complete a 5-day course of antibiotics prior to discharge -Continue current dose of steroids, methylprednisolone 40 every 8 hours, recommend weaning steroids to prednisone 40 mg daily if patient continues to sh ow clinical improvement. #Thank you for involving pulmonary in this patient care. We will continue to follow. Please call with any further questions or concerns that may arise over the weekend. We will also schedule full PFT 6-minute walk testing and nocturnal oximetry testing and follow the patient in pulmonary clinic in 4 to 6 weeks.
[2021-04-26 09:15] LABS: MANUAL DIFFERENTIAL MANUAL DIFFERENTIAL (MANUAL DIFF)
--- NOTE | 2021-04-26 09:17 | PC.NURSE ---
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 abnormal left pupil is his baseline.
--- NOTE | 2021-04-26 10:31 | DIET.NUTRFU ---
Addendum entered by Brittny Espinoza RD, LD 04/26/21 13:34: Continues to be unable to consume lunch d/t breathing mask Original Note: Patient ate very little yesterday d/t breathing mask most of the day. Planning to wean him today to nasal cannula. Cardiac diet in place with supplements on all trays. 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 Withdrawal protocol started yesterday, multiple vitamins in lactated ringers started, he also receiving additional vitamins. ABT in [place] in place, but no IVF ordered. Labs 134L, K 4.3, BUN 33H and Cr 0.50L, if unable to wean off mask today may need additional IVF. He now triggers for PCM, provider aware and noted, reviewing meal intake PROMOTIONAL REPRESENTATIVE with family, sounds like he was drinking most of his calories with 24 beers/day. Lack of nutritional value. Weight changes still unknown, at risk d/t decline in meal intake secondary to breathing challenges. Considered high risk with decline.
--- NOTE | 2021-04-26 11:03 | PC.NURSE ---
patient requested to be placed back on bipap due to increased work of breathing
[2021-04-26 11:26] LABS: Lymphocytes % 7 % (10-50); Macrocytosis 1+; Monocytes % 4 % (2-9); Neutrophils % 89 % (42-76); Platelet Estimate Normal; Total Cells Counted 100
--- NOTE | 2021-04-26 11:50 | SW/DCPLANNER ---
I spoke with this patients person to notify (Gilda/niece) and she stated that the plan for this patient is to discharge home with a family friend (Samira Nunez [phone]) at time of discharge. Gilda stated that patient is an alcoholic and does smoke. Patient has home O2 through [facility]. Gilda stated that patients family friend will be agreeable to home health services at time of discharge. Samira address: [facility] [address] in [facility]
[2021-04-26 18:40] LABS: Adenovirus,PCR Not Detected (NotDetected); Bordetella Pertussis Not Detected (NotDetected); Chlamydophila Pneumoniae, PCR Not Detected (NotDetected); Coronavirus 229E Not Detected (NotDetected); Coronavirus NL63 Not Detected (NotDetected); Coronovirus HKU1,PCR Not Detected (NotDetected); Human Metapneumovirus Not Detected (NotDetected); Influenza A, PCR Not Detected (NotDetected); Influenza AH1, 2009 Not Detected (NotDetected); Influenza AH1, PCR Not Detected (NotDetected); Influenza AH3,PCR Not Detected (NotDetected); Influenza B, PCR Not Detected (NotDetected); Mycoplasma Pneumoniae, PCR Not Detected (NotDetected); Parainfluenza 1, PCR Not Detected (NotDetected); Parainfluenza 2, PCR Not Detected (NotDetected); Parainfluenza 3, PCR Not Detected (NotDetected); Parainfluenza 4, PCR Not Detected (NotDetected); Respiratory Syncytial Virus Not Detected (NotDetected); Rhinovirus/Enterovirus Not Detected (NotDetected)
[2021-04-26 20:56] LABS: Coronavirus OC43 Detected (NotDetected)
[2021-04-27] VITALS (14 sets, daily range): BP systolic 104–140; BP diastolic 51–84; PULSE 70–112; RESP 20–26; TEMP 36.3–36.6; O2SAT 94–99; BMI 19.3
[2021-04-27 07:24] LABS: Basophils % 0.3 % (0.1-2.0); Eosinophils % 0.1 % (0.1-12.0); Hematocrit 49.5 % (42.0-52.0); Hemoglobin 15.4 g/dL (14.1-18.0); Lymphocytes # 0.7 K/mm3 (0.7-4.5); Mean Corpuscular HGB Conc 31.1 g/dL (31.8-35.4); Mean Corpuscular Hemoglobin 32.6 pg (27.0-31.2); Mean Corpuscular Volume 104.8 fl (80-94); Mean Platelet Volume 8.2 fl (7.4-10.4); Monocytes # 0.6 K/mm3 (0.1-1.0); Monocytes % 6.3 % (1.7-9.3); Neutrophils # 7.5 K/mm3 (1.8-7.8); Neutrophils % 85.3 % (37.0-80.0); Platelet Count 248 K/mm3 (142-424); Red Blood Count 4.72 M/mm3 (4.60-6.20); Red Cell Distribution Width 12.9 % (11.5-17.5); White Blood Count 8.8 K/mm3 (4.8-10.8)
[2021-04-27 07:28] LABS: Anion Gap 8.2 mEq/L (5-15); Blood Urea Nitrogen 28 mg/dl (9-20); Calcium 8.3 mg/dl (8.4-10.2); Carbon Dioxide 34 mmol/L (22.0-30.0); Chloride 101 mmol/L (98-107); Creatinine Clearance Estimated 61 mL/min (50-200); Estimated Glomerular Filt Rate 165 ml/min (>60); GFR (African American) 200 ML/MIN (>60); Glucose 157 mg/dl (74-100); Potassium 4.2 mmoL/L (3.5-5.1); Sodium 139 mmol/L (136-145)
[2021-04-27 07:38] LABS: MANUAL DIFFERENTIAL MANUAL DIFFERENTIAL (MANUAL DIFF)
--- NOTE | 2021-04-27 09:08 | HMH.ACPN2 ---
Internal Medicine - PN: Subj *Date: 04/27/21 *Time: 09:08 Interval history: Patient did well on BiPAP through the night yesterday. He is now on 3 L nasal cannula, acceptable oxygen saturations. Pulse rate normal. Vital signs improving. Labs reviewed with patient. Patient appears somewhat anxious. Ativan and alcohol withdrawal protocol have helped quite a bit. Patient actually states that he want to go home today. Exam Vital signs and Labs for Last 24 Hours: Temp Pulse Resp BP Pulse Ox 97.5 F L 94 H 24 128/84 97 04/27/21 07:20 04/27/21 07:20 04/27/21 07:20 04/27/21 07:20 04/27/21 07:20 Laboratory Results - last 24 hr 04/26/21 08:42: WBC 8.8 D, RBC 4.75, Hgb 15.5, Hct 49.1, MCV 103.3 H, MCH 32.6 H, MCHC 31.6 L, RDW 12.8, Plt Count 275, MPV 9.2, Neut % (Auto) 86.4 H, Lymph % (Auto) 7.1 L, [place] % (Auto) 5.1, Eos % (Auto) 1.0, Baso % (Auto) 0.4, Neut # (Auto) 7.6, Lymph # (Auto) 0.6 L, [place] # (Auto) 0.5, Eos # (Auto) 0.1, Baso # (Auto) 0.0, Total Counted 100, Neutrophils % (Manual) 89 H, Lymphocytes % (Manual) 7 L, Monocytes % (Manual) 4, Platelet Estimate Normal, Macrocytosis 1+ 04/26/21 18:30: Chlamy pneumoniae PCR Not detected, Adenovirus (PCR) Not detected, B. pertussis DNA (PCR) Not detected, Coronavirus OC43 (PCR) Detected A, Coronavirus HKU1 (PCR) Not detected, Coronavirus 229E (PCR) Not detected, Coronavirus NL63 (PCR) Not detected, Human Metapneumovir PCR Not detected, Influenza A (H1) PCR Not detected, Influ A (H1N1/09) PCR Not detected, Influenza A (H3) PCR Not detected, Influenza Type A (PCR) Not detected, Influenza Type B (PCR) Not detected, M. pneumoniae (PCR) Not detected, Parainfluenza 1 (PCR) Not detected, Parainfluenza 2 (PCR) Not detected, Parainfluenza 3 (PCR) Not detected, Parainfluenza 4 (PCR) Not detected, RSV (PCR) Not detected, Entero/Rhino (PCR) Not detected 04/27/21 06:05: WBC 8.8, RBC 4.72, Hgb 15.4, Hct 49.5, MCV 104.8 H, MCH 32.6 H, MCHC 31.1 L, RDW 12.9, Plt Count 248, MPV 8.2, Neut % (Auto) 85.3 H, Lymph % (Auto) 8.0 L, [place] % (Auto) 6.3, Eos % (Auto) 0.1, Baso % (Auto) 0.3, Neut # (Auto) 7.5, Lymph # (Auto) 0.7, [place] # (Auto) 0.6, Eos # (Auto) 0.0, Baso # (Auto) 0.0 04/27/21 06:05: Sodium 139, Potassium 4.2, Chloride 101, Carbon Dioxide 34 H, Anion Gap 8.2, BUN 28 H, Creatinine 0.50 L, Estimated Creat Clear 61, Estimated GFR 165, Est GFR ( Amer) 200, Glucose 157 H, Calcium 8.3 L I & O for Last 24 hours: Intake & Output 04/24/21 04/25/21 04/26/21 04/27/21 11:59 11:59 11:59 11:59 Intake Total 480 / 480 60 / 60 534 / 534 1331 / 1331 Output Total 375 / 375 1525 / 1525 225 / 225 700 / 700 Balance 105 / 105 -1465 / -1465 309 / 309 631 / 631 Weight 136 lb 9.6 oz 133 lb 133 lb 2 oz 135 lb 8 oz Narrative: Continues to look cachectic, some dyspnea with sentence formation but much improved. Lungs have expiratory wheezing and rhonchi bilaterally but better air movement than baseline on admission. Heart rate regular. Abdomen scaphoid and soft. Extremities warm and well-perfused. Anxious but neurologically intact otherwise. Assessment and Plan (1) Acute on chronic respiratory failure with hypoxemia Status: Acute Category: Medical Code(s): J96.21 - Acute and chronic respiratory failure with hypoxia (2) COPD (chronic obstructive pulmonary disease) Status: Acute Category: Medical Code(s): J44.9 - Chronic obstructive pulmonary disease, unspecified (3) Tobacco use disorder Status: Chronic Category: Medical Code(s): F17.200 - Nicotine dependence, unspecified, uncomplicated (4) Protein-calorie malnutrition, mild Status: Acute Category: Medical Code(s): E44.1 - Mild protein-calorie malnutrition - Assessment and plan all Dx Assessment and Plan for all problems:: Appreciate pulmonary involvement. Patient improving. Continue anxiety and alcohol withdrawal treatment. Try to stay off BiPAP today, up in a chair, encourage patient that he would need to be off
[2021-04-27 09:52] LABS: Lymphocytes % 8 % (10-50); Macrocytosis 1+; Monocytes % 7 % (2-9); Neutrophils % 85 % (42-76); Total Cells Counted 100
[2021-04-27 09:53] LABS: Platelet Estimate Normal
--- NOTE | 2021-04-27 17:03 | PC.NURSE ---
PT IS SITTING UP IN THE CHAIR. PT HAS BEEN UP OOB SINCE THIS MORNING. PT TOLERATED AMBULATING IN THE [place] WITH PHYSICAL THERAPY AND NURSING STAFF THIS SHIFT. AFTER PT AMBULATED O2 SATURATION WAS 92% ON ROOM AIR. O2 SATURATION HAS MAINTAINED 92-95% ON ROOM AIR SINCE 1200 THIS SHIFT. ACCORDING TO PT HE ONLY USES HIS OXYGEN AT HOME NEEDED. PT STATED HE AMBULATES AT HOME WITH A WALKER . LUNG SOUNDS HAVE SCATTERED WHEEZES. ABDOMEN SOFT/NON TENDER WITH ACTIVE BOWEL SOUNDS. PT WAS VERY DISAPPOINTED THIS MORNING OVER NOT BEING ABLE TO GO HOME. PT HAS BEEN MADE AWARE THAT HE HAS TO STAY OFF THE BIPAP AND BE ABLE TO SIT UP OOB AND AMBULATE. SWELLING NOTED TO RUE FROM IV INFILTRATION. NEW IV ACCESS NOTED TO WILLIAM. MULTIPLE TATTOO'S NOTED. WILL CONTINUE TO MONITOR.
[2021-04-28] VITALS: BP 132/68; PULSE 68; RESP 20; TEMP 36.7; O2SAT 97
[2021-04-28 03:57] VITALS: BP 126/62; PULSE 89; RESP 20; TEMP 36.7; O2SAT 94
[2021-04-28 04:59] VITALS: BMI 19.8
[2021-04-28 06:31] VITALS: PULSE 97; O2SAT 95
[2021-04-28 06:57] LABS: Anion Gap 8.3 mEq/L (5-15); Blood Urea Nitrogen 26 mg/dl (9-20); Calcium 8.2 mg/dl (8.4-10.2); Carbon Dioxide 30 mmol/L (22.0-30.0); Chloride 101 mmol/L (98-107); Creatinine Clearance Estimated 63 mL/min (50-200); Estimated Glomerular Filt Rate 214 ml/min (>60); GFR (African American) 259 ML/MIN (>60); Glucose 155 mg/dl (74-100); Potassium 4.3 mmoL/L (3.5-5.1); Sodium 135 mmol/L (136-145)
[2021-04-28 07:20] LABS: Basophils % 0.3 % (0.1-2.0); Eosinophils % 0.2 % (0.1-12.0); Hematocrit 48.8 % (42.0-52.0); Hemoglobin 15.3 g/dL (14.1-18.0); Lymphocytes # 0.8 K/mm3 (0.7-4.5); Lymphocytes % 7.6 % (10-50); Mean Corpuscular HGB Conc 31.3 g/dL (31.8-35.4); Mean Corpuscular Hemoglobin 32.5 pg (27.0-31.2); Mean Corpuscular Volume 103.7 fl (80-94); Monocytes # 0.7 K/mm3 (0.1-1.0); Monocytes % 6.6 % (1.7-9.3); Neutrophils # 8.5 K/mm3 (1.8-7.8); Neutrophils % 85.4 % (37.0-80.0); Platelet Count 215 K/mm3 (142-424); Red Blood Count 4.71 M/mm3 (4.60-6.20); Red Cell Distribution Width 12.8 % (11.5-17.5); White Blood Count 9.9 K/mm3 (4.8-10.8)
[2021-04-28 07:33] LABS: MANUAL DIFFERENTIAL MANUAL DIFFERENTIAL (MANUAL DIFF)
[2021-04-28 08:00] VITALS: BP 121/83; PULSE 106; RESP 22; TEMP 36.5; O2SAT 95
--- NOTE | 2021-04-28 08:38 | HMH.DCSUM ---
General - General Admission date:: 04/22/21 Discharge date: 04/28/21 HPI HPI: 70-year-old white male, heavy smoker of 2 packs/cigarettes daily, which she is done for many many years, who has significant emphysema, is on trilogy inhalers at home. Came to the hospital with shortness of air, coughing, sputum production, he notes that he has had this for about 2 days since he came down a flight of stairs and became breathless without improving. In the ER he was found to be hypoxic, dyspneic, improved with some BiPAP and steroids, transferred to floor for further evaluation and treatment of COPD exacerbation. Hospital Course Hospital Course: Patient was admitted, initially he stabilized but then worsened in regards to respiratory status, hypercapnic respiratory failure and had to be placed on BiPAP. It turned out that he is a significant abuser of alcohol, and drinks 24 to 30 cans of beer daily. He was placed on alcohol withdrawal protocols and this helped stabilize his tachypnea, shaking and improved his ventilatory status over the next couple of days. He was continued on nebulizers, steroids and antibiotics. Appreciate pulmonary consultation and input. Over the last 36 hours patient's been able to be off BiPAP, has been on nasal cannula exclusively and has been doing well and has been getting up into a chair and eating well and doing his own activities of daily living. He wishes to be discharged home. He is significantly high risk for discharge but given his current stability and his desire to go home this will be done. Plan will be to follow-up in my office very quickly, on May 01, I have scheduled the appointment personally. He has no nebulizer machines at home and we will get those arranged for him today, I will prescribe DuoNeb 4 times daily, he has a trilogy inhaler, he will continue this. We will do Omnicef, azithromycin and prednisone for his COPD exacerbation. I will do a short-term diazepam prescription to try to avoid alcohol withdrawal and encourage him to reduce his alcohol use at home. Objective Vital signs: Temp Pulse Resp BP Pulse Ox 98.1 F 97 H 20 126/62 95 04/28/21 03:57 04/28/21 06:31 04/28/21 03:57 04/28/21 03:57 04/28/21 06:31 no acute distress, thin, cachectic, chronically ill appearing Comments: Appears older than his stated age. Thorax and arms are covered with a variety of tattoos of variable quality. - *Routine HEENT Exam Head: Present: normocephalic Eye: Present: EOMI, PERRL ENT: Present: mucous membranes moist - *Routine Neck Exam Present: supple - *Routine Respiratory Exam Present: prolonged expiratory phase, rhonchi, wheezes Comments: Improved over admission exam. Remains significantly abnormal given his severe and probable end-stage COPD - *Routine Cardiovascular Exam Present: RRR - *Routine Abdominal Exam Present: soft, normoactive bowel sounds. Absent: tenderness - *Routine Extremities Exam Absent: cyanosis, clubbing, edema - *Routine Skin Exam Present: warm. Absent: rash - Detailed Eye Exam Eyelids: Bilateral normal inspection Results Labs on day of discharge: Labs from last 24 hours 04/28/21 04/28/21 04/27/21 05:45 05:45 06:05 WBC 9.9 RBC 4.71 Hgb 15.3 Hct 48.8 MCV 103.7 H MCH 32.5 H MCHC 31.3 L RDW 12.8 Plt Count 215 MPV 9.0 Neut % (Auto) 85.4 H Lymph % (Auto) 7.6 L [place] % (Auto) 6.6 Eos % (Auto) 0.2 Baso % (Auto) 0.3 Neut # (Auto) 8.5 H Lymph # (Auto) 0.8 [place] # (Auto) 0.7 Eos # (Auto) 0.0 Baso # (Auto) 0.0 Total Counted 100 Neutrophils % (Manual) 85 H Lymphocytes % (Manual) 8 L Monocytes % (Manual) 7 Platelet Estimate Normal Macrocytosis 1+ Sodium 135 L Potassium 4.3 Chloride 101 Carbon Dioxide 30 Anion Gap 8.3 BUN 26 H Creatinine 0.40 L Estimated Creat Clear 63 Estimated GFR 214 Est GFR (Afri
[2021-04-28 09:00] LABS: Lymphocytes % 8 % (10-50); Macrocytosis 1+; Monocytes % 7 % (2-9); Neutrophils % 85 % (42-76); Platelet Estimate Normal; Total Cells Counted 100
[2021-04-28 10:40] VITALS: PULSE 98; PULSE 99
--- NOTE | 2021-04-29 14:16 | CARE MANAGER ---
Did not contact patient for follow up from hospital discharge as patient was discharged and readmitted on the same day. SIMBA Barfield
== END 2021-04-28 12:47 | disposition home or self-care (01) | DRG 189 ==
LOC: ER 13:19 → 2ND 15:45
PROVIDERS: Internal Medicine Adolescent Medicine; Internal Medicine Pulmonary Disease; Admitting Provider Internal Medicine Adolescent Medicine; Emergency Provider Student in an Organized Health Care Education/Training Program; PCP Nurse Practitioner Family; Visit Provider Internal Medicine Adolescent Medicine
DX: J96.21 Acute and chronic respiratory failure with hypoxia (principal); E43 Unspecified severe protein-calorie malnutrition; U07.1 COVID-19; Z68.1 Body mass index [BMI] 19.9 or less, adult; F10.239 Alcohol dependence with withdrawal, unspecified; J43.9 Emphysema, unspecified; F17.210 Nicotine dependence, cigarettes, uncomplicated; E78.5 Hyperlipidemia, unspecified; I10 Essential (primary) hypertension; F41.9 Anxiety disorder, unspecified
CPT/HCPCS: 36415; 71045; 80048; 80053; 80305; 82803; 83735; 84100; 84484; 85007; 85025; 85730; 87486; 87581; 87632; 87798; 93005; 94640; 94660; 94761; 96374; 97110; 97116; 97162; 97165; 97530; C9803; J0456; J0696; U0003; U0005

== ENCOUNTER 2021-04-28 16:04 | Inpatient (IN) | payer MEDICAID, MEDICARE, SELFPAY ==
[2021-04-28] VITALS (14 sets, daily range): BP systolic 86–154; BP diastolic 55–109; PULSE 94–147; RESP 18–35; TEMP 35.9–36.8; O2SAT 95–98; BMI 26.6; BMI 19.8
--- NOTE | 2021-04-28 16:25 | PC.NURSE ---
RT at bedside
--- NOTE | 2021-04-28 16:27 | PC.NURSE ---
blood sent to lab by chapo curtis
[2021-04-28 16:47] LABS: ABG Base Excess -0.9 mmol/L (-2.4-2.3); ABG HCO3 27.3 mmhg (22.0-26.0); ABG Oxygen Saturation 100 % (90-100); ABG PO2 229.6 mmhg (80-100); ABG TCO2 29.5 mmhg (23-27)
[2021-04-28 17:06] LABS: Allen's Test Y; Oxygen 5 %; Source Left Radial
[2021-04-28 17:07] LABS: ABG PCO2 73.1 mmhg (35.0-45.0); ABG PH 7.19 mmol/L (7.35-7.45)
--- NOTE | 2021-04-28 17:07 | PC.NURSE ---
Pt family has came to nurses station stating that pt would not leave bipap on. [employer] Professor is in dept handling the situation.
--- NOTE | 2021-04-28 17:37 | PC.NURSE ---
talking to about admission
--- NOTE | 2021-04-28 17:40 | ECG_ITS ---
APPROVED REPORT Exam: Resting ECG HR:147 bpm ECG Measurements Heart Rate 147 AXES AL 140 P 67 QRSd 86 QRS 66 QT 320 T 75 QTc [address] DEVIATION AND MODERATE T-WAVE ABNORMALITY, CONSIDER LATERAL ISCHEMIA [-0.1+ mV T-WAVE IN I/aVL/V5/V6] ABNORMAL ECG UNCONFIRMED REPORT Electronically signed by : Marques Logan MD 04/29/2021 19:51:29
--- NOTE | 2021-04-28 17:40 | XR_ITS ---
PROCEDURE INFORMATION: Exam: XR Chest Exam date and time: 04/28/2021 5:40 PM Age: 70 years old Clinical indication: Shortness of breath; Additional info: SOA, patient on bi-pap machine. Heavy smoker. TECHNIQUE: Imaging protocol: XR of the chest. Views: 1 view. COMPARISON: CR XR CHEST PORTABLE 04/24/2021 10:36 AM FINDINGS: Airway: Patent Lungs: Diffuse chronic interstitial prominence. No significant acute interstitial or airspace disease. COPD/emphysema. Pleural spaces: Left costophrenic angle is obscured by overlying artifact. Right costophrenic angle is clear. Heart/Mediastinum: Heart is of normal size and morphology. Vasculature: Calcified aortic knob. Bones/joints: No acute skeletal abnormality or aggressive osseous lesion. IMPRESSION: Findings favor COPD exacerbation. I do not see any discrete evidence for acute pneumonia in this examination, with the caveat that the left costophrenic angle is obscured by overlying artifact.
[2021-04-28 17:49] LABS: Basophils # 0.3 K/mm3 (0-0.2); Basophils % 1.5 % (0.1-2.0); Eosinophils % 0.1 % (0.1-12.0); Hematocrit 54.8 % (42.0-52.0); Hemoglobin 16.7 g/dL (14.1-18.0); Lymphocytes # 0.8 K/mm3 (0.7-4.5); Mean Corpuscular HGB Conc 30.4 g/dL (31.8-35.4); Mean Corpuscular Hemoglobin 32.3 pg (27.0-31.2); Mean Corpuscular Volume 106.2 fl (80-94); Mean Platelet Volume 9.2 fl (7.4-10.4); Monocytes # 1.7 K/mm3 (0.1-1.0); Monocytes % 9.1 % (1.7-9.3); Neutrophils # 16.1 K/mm3 (1.8-7.8); Neutrophils % 85.3 % (37.0-80.0); Platelet Count 335 K/mm3 (142-424); Red Blood Count 5.16 M/mm3 (4.60-6.20); Red Cell Distribution Width 12.7 % (11.5-17.5); White Blood Count 18.8 K/mm3 (4.8-10.8)
[2021-04-28 17:50] LABS: Chloride 94 mmol/L (98-107)
[2021-04-28 17:51] LABS: Potassium 5.4 mmoL/L (3.5-5.1); Sodium 131 mmol/L (136-145)
[2021-04-28 17:52] LABS: MANUAL DIFFERENTIAL MANUAL DIFFERENTIAL (MANUAL DIFF)
[2021-04-28 17:53] LABS: Alanine Aminotransferase 84 U/L (12-78); Aspartate Amino Transferase 97 U/L (17-59); Blood Urea Nitrogen 30 mg/dl (9-20); Creatinine Clearance Estimated 79 mL/min (50-200); Estimated Glomerular Filt Rate 84 ml/min (>60); GFR (African American) 102 ML/MIN (>60)
[2021-04-28 17:54] LABS: Albumin Level 3.6 g/dl (3.5-5.0); Albumin/Globulin Ratio 1.3 (1.1-1.8); Alkaline Phosphatase 72 U/L (38-126); Anion Gap 9.4 mEq/L (5-15); Bilirubin,Total 0.6 mg/dl (0.2-1.3); Calcium 8.3 mg/dl (8.4-10.2); Carbon Dioxide 33 mmol/L (22.0-30.0); Globulin 2.8 g/dL (1.3-3.2); Glucose 226 mg/dl (74-100); Total Protein,Serum 6.4 g/dl (6.3-8.2)
[2021-04-28 18:06] LABS: Coronavirus 19, PCR Not Detected (NotDetected); Influenza A, PCR Not Detected (NotDetected); Influenza B, PCR Not Detected (NotDetected)
[2021-04-28 18:15] LABS: Hypochromasia 2+; Lymphocytes % 13 % (10-50); Macrocytosis 3+; Monocytes % 3 % (2-9); Neutrophils % 78 % (42-76); Platelet Estimate Normal; Total Cells Counted 100
--- NOTE | 2021-04-28 19:13 | HMH.EDGENADL ---
ED Disposition Clinical Impression: Respiratory failure with hypoxia and hypercapnia Qualifiers: Chronicity: acute on chronic Qualified Code(s): J96.21 - Acute and chronic respiratory failure with hypoxia; J96.22 - Acute and chronic respiratory failure with hypercapnia COPD (chronic obstructive pulmonary disease) Qualifiers: COPD type: unspecified COPD Qualified Code(s): J44.9 - Chronic obstructive pulmonary disease, unspecified Disposition: Admitted As Inpatient Condition on Discharge: Serious Referrals: Marques Logan MD [Primary Care Provider] - - Critical Care Critical Care Time: Yes Attestation: On 04/28/21, the high probability of a clinically significant, sudden or life threatening deterioration of the following system(s) required my full and direct attention, intervention and personal management. The time I documented below is in addition to time spent performing reported procedures but includes the following listed in this critical care notation. Total Critical Care Time: 35 Vital system(s) involved:: Respiratory Failure My critical care processes included: Assessment & monitoring of V/S, Initial and Re-exams, Data Review/Interpretation, Coordinating Care, Medication Orders and management, Documentation Medical Decision Making - Jason Inquiry Pt receiving controlled substance: Yes Jason was queried for this patient: No Reason not queried -: Emergent pt cond-no time Risks and benefits of using a controlled substance: were not discussed with pt by me Vital Signs: 04/28/21 16:04 04/28/21 17:53 04/28/21 18:00 Pulse Rate 123 H 117 H Pulse Rate [Left Radial] 147 H Respiratory Rate 35 H Blood Pressure 122/64 97/60 L Blood Pressure [Right Arm] 154/109 H Blood Pressure Mean 85 72 Blood Pressure Mean [Right Arm] 124 Blood Pressure Source [Right Arm] Automatic Cuff Blood Pressure Position [Right Arm] Sitting 02 Sat by Pulse Oximetry 98 Oxygen Delivery Method Non-Rebreather 04/28/21 18:30 04/28/21 18:40 04/28/21 19:00 Pulse Rate 109 H 109 H 100 H Pulse Rate [Left Radial] Respiratory Rate 24 Blood Pressure 86/57 L 96/55 L 90/56 L Blood Pressure [Right Arm] Blood Pressure Mean 63 68 62 Blood Pressure Mean [Right Arm] Blood Pressure Source [Right Arm] Blood Pressure Position [Right Arm] 02 Sat by Pulse Oximetry 95 95 96 Oxygen Delivery Method 04/28/21 19:21 Pulse Rate 102 H Pulse Rate [Left Radial] Respiratory Rate 24 Blood Pressure 100/62 L Blood Pressure [Right Arm] Blood Pressure Mean 74 Blood Pressure Mean [Right Arm] Blood Pressure Source [Right Arm] Blood Pressure Position [Right Arm] 02 Sat by Pulse Oximetry 96 Oxygen Delivery Method - Lab Data Lab Results 04/28/21 16:24: WBC 18.8 H D, RBC 5.16, Hgb 16.7, Hct 54.8 H, MCV 106.2 H, MCH 32.3 H, MCHC 30.4 L, RDW 12.7, Plt Count 335 D, MPV 9.2, Neut % (Auto) 85.3 H, Lymph % (Auto) 4.0 L, [place] % (Auto) 9.1, Eos % (Auto) 0.1, Baso % (Auto) 1.5, Neut # (Auto) 16.1 H, Lymph # (Auto) 0.8, [place] # (Auto) 1.7 H, Eos # (Auto) 0.0, Baso # (Auto) 0.3 H, Total Counted 100, Neutrophils % (Manual) 78 H, Band Neutrophils % 6.0, Lymphocytes % (Manual) 13, Monocytes % (Manual) 3, Platelet Estimate Normal, Hypochromasia 2+, Macrocytosis 3+ 04/28/21 16:24: Sodium 131 L, Potassium 5.4 H D, Chloride 94 L, Carbon Dioxide 33 H, Anion Gap 9.4, BUN 30 H, Creatinine 0.90 D, Estimated Creat Clear 79, Estimated GFR 84, Est GFR ( Amer) 102 D, Glucose 226 H D, Calcium 8.3 L, Total Bilirubin 0.6, AST 97 H, ALT 84 H, Alkaline Phosphatase 72, Troponin I 0.30 H, Total Protein 6.4, Albumin 3.6, Globulin 2.8, Albumin/Globulin Ratio 1.3 04/28/21 16:47: Specimen Source Left radial, O2 % 5, ABG pH 7.19 L*, ABG pCO2 73.1 H, ABG pO2 229.6 H, ABG HCO3 27.3 H, ABG Total CO2 29.5 H, ABG O2 Saturation 100, ABG Base Excess -0.9, Joseph Test Y 04/28/21 18:00: SARS-CoV-2 (PCR) Not detected, Influenza A Untype (PCR) Not detected, Influenza Type B
[2021-04-28 21:29] LABS: Troponin I 0.76 ng/ml (0.00-0.034)
--- NOTE | 2021-04-28 21:40 | PC.NURSE ---
patient up to floor via stretcher @ this time.
[2021-04-29] VITALS (11 sets, daily range): BP systolic 104–121; BP diastolic 55–73; PULSE 73–100; RESP 16–25; TEMP 36.4–37.1; O2SAT 93–97; BMI 19.8; BMI 19.7
[2021-04-29 00:25] LABS: Troponin I 0.86 ng/ml (0.00-0.034)
--- NOTE | 2021-04-29 00:36 | PC.NURSE ---
2127 Critical trop of 0.76 call from lab by Angelika Rivera. Patient , name, and result repeated back and verified. Notified Dr. Soriano. No new orders at this time will continue to monitor patient. 29 2127 Critical trop of 0.86 call from lab by Edvin. Patient , name, and result repeated back and verified. Notified Dr. Soriano. No new orders at this time will continue to monitor patient.
--- NOTE | 2021-04-29 07:27 | P.CONPHA_ITS ---
[facility] Pharmacy VTE Monitoring - Patient Demographics Admission date: 04/29/21 Report Date: 04/29/21 Time: 07:27 Allergies/Adverse Reactions: Patient Allergies No Known Allergies Allergy (Verified 04/22/21 12:23) Height: 1.75 m Weight: 60.583 kg Patient Problems: Current Active Problems COPD (chronic obstructive pulmonary disease) (Chronic) Respiratory failure with hypoxia and hypercapnia (Acute) - VTE Risk Labs: VTE Related Lab Results Hgb 16.7 g/dL (14.1-18.0) 04/28/21 16:24 Hct 54.8 % (42.0-52.0) H 04/28/21 16:24 Plt Count 335 K/mm3 (142-424) D 04/28/21 16:24 BUN 30 mg/dl (9-20) H 04/28/21 16:24 Creatinine 0.90 mg/dl (0.66-1.25) D 04/28/21 16:24 Estimated Creat Clear 79 mL/min (50-200) 04/28/21 16:24 Clinical Trial Participant: No - Prophylaxis VTE Prophylaxis Ordered?: Yes Types of VTE Prophylaxis: TEDS Knee High Location of Applied Device: Bilateral Lower Extremeties
--- NOTE | 2021-04-29 08:38 | HMH.HP ---
*Admission Date: 04/29/21 *Chief complaint: COPD exacerbation/dyspnea *History of present illness: 70-year-old white male with severe COPD who smokes multiple packs of cigarettes daily and drinks over 24 cans of beer daily. He was in the hospital last week for COPD exacerbation, had been off BiPAP for over 36 hours and yesterday essentially demanded to go home and had implied he would leave AMA without being discharged. Given his ability to do activities of daily living in the hospital and his maintenance of his O2 saturations, mental status and physical activity on nasal cannula oxygen, we arrange discharge with antibiotics, steroids, home nebulizers-which she has never had prescribed to him before-and his regular inhalers as well as short-term follow-up. Apparently he got in the car, smoked 5 or 6 cigarettes in the car on the way to his house and became dyspneic and his family became nervous and he returned back to the emergency department. Since he been off his oxygen, he was hypoxic, hypercapnic and acidotic. Placed back on BiPAP and readmitted to the hospital. This morning he feels better. [facility] History I have reviewed the patient's past medical history: Yes Medical History: Reports:: Chronic Obstructive Pulmonary Disease (COPD), Hyperlipidemia, Hypertension *Have you ever received a pneumonia vaccine?: No *Have you received a flu vaccine this season?: No - *Social History Smoking Status: Current every day smoker Tobacco Type: cigarettes # Packs/Day (cigarettes): 2 Alcohol Intake: former Alcohol Intake Frequency:: a few times a week *Occupational Status:: unemployed Household Members: friend(s) *Travel in the last 8 weeks: None Family Hx:: Unable to obtain Review of Systems - Review of Systems Review of systems:: pertinent systems reviewed and negative unless documented below Meds Home Medications Medication Instructions Recorded Confirmed Type Fluticasone/Umeclidin/Vilanter 1 dose IH DAILY 04/22/21 04/28/21 History [Trelebienvenido Ellipta 100-62.5-25] Ascorbic Acid 500 mg PO DAILY 04/23/21 04/28/21 History Azithromycin [Zithromax 250mg 250 mg PO DIRECTED 04/28/21 04/28/21 History tab] Cefdinir [Omnicef 300mg Capsule] 300 mg PO BID 04/28/21 04/28/21 History Ipratropium/Albuterol Sulfate 3 ml IH QID 04/28/21 04/28/21 History [Duoneb 3mL neb] predniSONE [Deltasone 20mg 20 mg PO BID 04/28/21 04/28/21 History tablet] Allergies Allergy/AdvReac Type Severity Reaction Status Date / Time No Known Allergies Allergy Verified 04/22/21 12:23 Exam Vital signs and Labs for Last 24 Hours: Temp Pulse Resp BP Pulse Ox 98 F 79 16 104/73 L 96 04/29/21 04:28 04/29/21 06:39 04/29/21 04:28 04/29/21 04:28 04/29/21 04:28 Laboratory Results - last 24 hr 04/28/21 16:24: WBC 18.8 H D, RBC 5.16, Hgb 16.7, Hct 54.8 H, MCV 106.2 H, MCH 32.3 H, MCHC 30.4 L, RDW 12.7, Plt Count 335 D, MPV 9.2, Neut % (Auto) 85.3 H, Lymph % (Auto) 4.0 L, [place] % (Auto) 9.1, Eos % (Auto) 0.1, Baso % (Auto) 1.5, Neut # (Auto) 16.1 H, Lymph # (Auto) 0.8, [place] # (Auto) 1.7 H, Eos # (Auto) 0.0, Baso # (Auto) 0.3 H, Total Counted 100, Neutrophils % (Manual) 78 H, Band Neutrophils % 6.0, Lymphocytes % (Manual) 13, Monocytes % (Manual) 3, Platelet Estimate Normal, Hypochromasia 2+, Macrocytosis 3+ 04/28/21 16:24: Sodium 131 L, Potassium 5.4 H D, Chloride 94 L, Carbon Dioxide 33 H, Anion Gap 9.4, BUN 30 H, Creatinine 0.90 D, Estimated Creat Clear 79, Estimated GFR 84, Est GFR ( Amer) 102 D, Glucose 226 H D, Calcium 8.3 L, Total Bilirubin 0.6, AST 97 H, ALT 84 H, Alkaline Phosphatase 72, Troponin I 0.30 H, Total Protein 6.4, Albumin 3.6, Globulin 2.8, Albumin/Globulin Ratio 1.3 04/28/21 16:47: Specimen Source Left radial, O2 % 5, ABG pH 7.19 L*, ABG pCO2 73.1 H, ABG pO2 229.6 H, ABG HCO3 27.3 H, ABG Total CO2 29.5 H, ABG O2 Saturation 100, ABG Base Excess -0.9, Joseph Test Y 04/28/21 18:00: SARS-CoV-2 (PCR) Not detecte
--- NOTE | 2021-04-29 08:51 | HMH.PHAINT ---
Home medicaiton list verified using list from [facility]
--- NOTE | 2021-04-29 09:30 | HMH.PULMCON ---
*Admission Date: 04/29/21 *History of present illness: Acute on chronic hypoxic hypercarbic respiratory failure Mr. Campbell is a 70-year-old male significant smoking history 3 to 4 packs a day, significant alcoholism history, smoked drinking 20-30 beers per day recently admitted for COPD exacerbation discharged home presented to the hospital again with worsening respiratory distress. Blood gas on this admission showed significant worsening hypercarbic respiratory failure, pH of 7.19 with a PCO2 of 73.1. No significant hypoxia noted, PO2 of 229.6. No significant changes noted on his chest x-ray from his recent discharge. [facility] History Medical History: Reports:: Chronic Obstructive Pulmonary Disease (COPD), Hyperlipidemia, Hypertension *Have you ever received a pneumonia vaccine?: No *Have you received a flu vaccine this season?: No - *Social History Smoking Status: Current every day smoker Tobacco Type: cigarettes # Packs/Day (cigarettes): 2 Alcohol Intake: former Alcohol Intake Frequency:: a few times a week *Occupational Status:: unemployed Household Members: friend(s) *Travel in the last 8 weeks: None Family Hx:: Unable to obtain ROS - Cons Denies anorexia, Denies body ache(s), Denies chills - Eyes Denies change in vision - ENT Denies hoarseness - Card Reports shortness of breath, Reports shortness of breath with activity - Resp Respiratory: Reports shortness of breath, Reports chest congestion, Reports cough, Reports dyspnea, Reports dyspnea on exertion, Denies excessive phlegm production, Denies cough with sputum production, Reports wheezing - GI Gastrointestingal: Denies: abdominal pain - [place] Musculoskeletal: Reports back pain - Psych Denies thoughts of hurting/killing others, Denies thoughts of hurting/killing yourself Meds Home Medications Medication Instructions Recorded Confirmed Type Fluticasone/Umeclidin/Vilanter 1 dose IH DAILY 04/22/21 04/28/21 History [Trelebienvenido Ellipta 100-62.5-25] Ascorbic Acid 500 mg PO DAILY 04/23/21 04/28/21 History Azithromycin [Zithromax 250mg 250 mg PO DIRECTED 04/28/21 04/28/21 History tab] Cefdinir [Omnicef 300mg Capsule] 300 mg PO BID 04/28/21 04/28/21 History Ipratropium/Albuterol Sulfate 3 ml IH QID 04/28/21 04/28/21 History [Duoneb 3mL neb] predniSONE [Deltasone 20mg 20 mg PO BID 04/28/21 04/28/21 History tablet] Ergocalciferol (Vitamin D2) 1,250 mcg PO .2 TIMES PER WEEK 04/29/21 04/29/21 History [Vitamin D2] Fluticasone/Umeclidin/Vilanter 1 puff IH DAILY 04/29/21 04/29/21 History [Trelegy Ellipta 100-62.5-25] Allergies Allergy/AdvReac Type Severity Reaction Status Date / Time No Known Allergies Allergy Verified 04/22/21 12:23 Exam - Constitutional Constitutional:: Present: no acute distress, comfortable - HENMT Exam HENMT: Present: normocephalic - Eye Exam Eyes:: Present: normal appearance both eyes and related structures - Neck Exam Neck:: Present: normal visual inspection - Respiratory Exam Respiratory:: Present: able to speak in complete sentences, no respiratory distress, decreased breath sounds, wheezing - Cardiovascular Exam Cardiac:: Present: S1, S2 - GI Exam GI:: Present: soft, no hepatosplenomegaly - Skin Exam Skin: Present: warm, no rash - Neurological Exam Neurological: Present: alert, awake, normal cognition - Extremities Exam Extremities: Present: no cyanosis, no clubbing, no edema Internal Medicine - CN: Reslt - Labs CBC & Chem 7: 04/28/21 16:24 04/28/21 16:24 Labs: Short CBC 04/28/21 Range/Units 16:24 WBC 18.8 H D (4.8-10.8) K/mm3 Hgb 16.7 (14.1-18.0) g/dL Hct 54.8 H (42.0-52.0) % Plt Count 335 D (142-424) K/mm3 BMP 04/28/21 16:24 Sodium 131 L Potassium 5.4 H D Chloride 94 L Carbon Dioxide 33 H BUN 30 H Creatinine 0.90 D Glucose 226 H D Calcium 8.3 L Cardiac Enzymes 04/28/21 04/28/21 04/28/21 Range/Un
--- NOTE | 2021-04-29 14:36 | CT_ITS ---
FINAL REPORT CLINICAL HISTORY: Respiratory failure, SOA FINDINGS: Thin section axial CT images of the chest were obtained with contrast. 3D reformatted images were also obtained. This study was performed with techniques to keep radiation doses as low as reasonably achievable (ALARA). Individualized dose reduction techniques using automated exposure control or adjustment of mA and/or kV according to the patient''s size were employed. There is no evidence of pulmonary embolism. There is no evidence of thoracic aortic aneurysm or dissection. There is no evidence of mediastinal or hilar mass or adenopathy. There is no evidence of pulmonary mass or nodule. No localized inflammatory process is seen within the lungs. There is mild scarring and mild emphysema. There is mild atelectasis at the lung bases. Limited images of the upper abdomen demonstrate mild left adrenal gland enlargement, likely an adenoma or hyperplasia. IMPRESSION: No evidence of pulmonary embolism. No mass or localized inflammatory process. Reviewed, Interpreted and Dictated by Alban Dailey III, MD Transcribed by Glendy Ponce Authenticated by Alban Dailey III, MD on 04/30/2021 08:13:00 AM [facility]
[2021-04-29 16:30] LABS: ABG Base Excess 2.5 mmol/L (-2.4-2.3); ABG HCO3 26.2 mmhg (22.0-26.0); ABG Oxygen Saturation 98 % (90-100); ABG PCO2 37.4 mmhg (35.0-45.0); ABG PH 7.46 mmol/L (7.35-7.45); ABG PO2 92.4 mmhg (80-100); ABG TCO2 27.4 mmhg (23-27)
[2021-04-29 16:32] LABS: Allen's Test acceptable; Oxygen 2 %; Source Right Radial
[2021-04-30] VITALS (16 sets, daily range): BP systolic 114–148; BP diastolic 60–74; PULSE 78–110; RESP 22–28; TEMP 36.6–36.8; O2SAT 93–99
[2021-04-30 06:54] LABS: Basophils # 0.1 K/mm3 (0-0.2); Basophils % 1.2 % (0.1-2.0); Eosinophils # 0.1 K/mm3 (0.0-0.4); Eosinophils % 0.4 % (0.1-12.0); Hematocrit 45.9 % (42.0-52.0); Hemoglobin 13.9 g/dL (14.1-18.0); Lymphocytes # 0.5 K/mm3 (0.7-4.5); Lymphocytes % 3.8 % (10-50); Mean Corpuscular HGB Conc 30.3 g/dL (31.8-35.4); Mean Corpuscular Hemoglobin 32.1 pg (27.0-31.2); Mean Corpuscular Volume 105.8 fl (80-94); Mean Platelet Volume 8.7 fl (7.4-10.4); Monocytes # 0.4 K/mm3 (0.1-1.0); Monocytes % 3.3 % (1.7-9.3); Neutrophils # 11.1 K/mm3 (1.8-7.8); Neutrophils % 91.2 % (37.0-80.0); Platelet Count 161 K/mm3 (142-424); Red Blood Count 4.34 M/mm3 (4.60-6.20); White Blood Count 12.2 K/mm3 (4.8-10.8)
[2021-04-30 07:03] LABS: Alanine Aminotransferase 55 U/L (12-78); Albumin Level 2.9 g/dl (3.5-5.0); Albumin/Globulin Ratio 1.3 (1.1-1.8); Alkaline Phosphatase 48 U/L (38-126); Anion Gap 5.4 mEq/L (5-15); Aspartate Amino Transferase 35 U/L (17-59); Bilirubin,Total 0.5 mg/dl (0.2-1.3); Blood Urea Nitrogen 23 mg/dl (9-20); Carbon Dioxide 31 mmol/L (22.0-30.0); Chloride 102 mmol/L (98-107); Creatinine Clearance Estimated 61 mL/min (50-200); Estimated Glomerular Filt Rate 165 ml/min (>60); GFR (African American) 200 ML/MIN (>60); Globulin 2.3 g/dL (1.3-3.2); Glucose 160 mg/dl (74-100); Potassium 4.4 mmoL/L (3.5-5.1); Sodium 134 mmol/L (136-145); Total Protein,Serum 5.2 g/dl (6.3-8.2)
[2021-04-30 07:04] LABS: MANUAL DIFFERENTIAL MANUAL DIFFERENTIAL (MANUAL DIFF)
--- NOTE | 2021-04-30 07:16 | HMH.DCSUM ---
General - General Admission date:: 04/28/21 Discharge date: 04/30/21 HPI HPI: 70-year-old white male with severe COPD who smokes multiple packs of cigarettes daily and drinks over 24 cans of beer daily. He was in the hospital last week for COPD exacerbation, had been off BiPAP for over 36 hours and yesterday essentially demanded to go home and had implied he would leave AMA without being discharged. Given his ability to do activities of daily living in the hospital and his maintenance of his O2 saturations, mental status and physical activity on nasal cannula oxygen, we arrange discharge with antibiotics, steroids, home nebulizers-which she has never had prescribed to him before-and his regular inhalers as well as short-term follow-up. Apparently he got in the car, smoked 5 or 6 cigarettes in the car on the way to his house and became dyspneic and his family became nervous and he returned back to the emergency department. Since he been off his oxygen, he was hypoxic, hypercapnic and acidotic. Placed back on BiPAP and readmitted to the hospital. This morning he feels better. Objective Vital signs: Temp Pulse Resp BP Pulse Ox 97.9 F 88 22 119/71 99 04/30/21 00:00 04/30/21 05:55 04/30/21 00:00 04/30/21 00:00 04/30/21 05:55 Results Labs on day of discharge: Labs from last 24 hours 04/30/21 04/30/21 04/29/21 06:43 06:43 13:00 WBC 12.2 H D RBC 4.34 L Hgb 13.9 L Hct 45.9 MCV 105.8 H MCH 32.1 H MCHC 30.3 L RDW 13.0 Plt Count 161 D MPV 8.7 Neut % (Auto) 91.2 H Lymph % (Auto) 3.8 L [place] % (Auto) 3.3 Eos % (Auto) 0.4 Baso % (Auto) 1.2 Neut # (Auto) 11.1 H Lymph # (Auto) 0.5 L [place] # (Auto) 0.4 Eos # (Auto) 0.1 Baso # (Auto) 0.1 Specimen Source Right radial O2 % 2 ABG pH 7.46 H ABG pCO2 37.4 ABG pO2 92.4 ABG HCO3 26.2 H ABG Total CO2 27.4 H ABG O2 Saturation 98 ABG Base Excess 2.5 H Joseph Test acceptable Sodium 134 L Potassium 4.4 Chloride 102 Carbon Dioxide 31 H Anion Gap 5.4 BUN 23 H Creatinine 0.50 L D Estimated Creat Clear 61 Estimated GFR 165 Est GFR ( Amer) 200 D Glucose 160 H Calcium 8.0 L Total Bilirubin 0.5 AST 35 D ALT 55 D Alkaline Phosphatase 48 Total Protein 5.2 L Albumin 2.9 L Globulin 2.3 Albumin/Globulin Ratio 1.3 DS: Diagnosis - Discharge Diagnosis (1) Alcohol abuse Status: Acute (2) Respiratory failure with hypoxia and hypercapnia Status: Acute (3) COPD (chronic obstructive pulmonary disease) Status: Chronic (4) Protein-calorie malnutrition, mild Status: Chronic (5) Tobacco use disorder Status: Chronic (6) Acute on chronic respiratory failure with hypoxemia Status: Resolved Discharge Plan - Patient Discharge Instructions Patient Instructions: Chronic Obstructive Pulmonary Disease (Alternative Therapy), DI for Respiratory Failure - Follow up Plan Home Medications: Home Medications Medication Instructions Recorded Confirmed Type Fluticasone/Umeclidin/Vilanter 1 dose IH DAILY 04/22/21 04/28/21 History [Trelegy Ellipta 100-62.5-25] Ascorbic Acid 500 mg PO DAILY 04/23/21 04/28/21 History Azithromycin [Zithromax 250mg 250 mg PO DIRECTED 04/28/21 04/28/21 History tab] Cefdinir [Omnicef 300mg Capsule] 300 mg PO BID 04/28/21 04/28/21 History Ipratropium/Albuterol Sulfate 3 ml IH QID 04/28/21 04/28/21 History [Duoneb 3mL neb] predniSONE [Deltasone 20mg 20 mg PO BID 04/28/21 04/28/21 History tablet] Ergocalciferol (Vitamin D2) 1,250 mcg PO .2 TIMES PER WEEK 04/29/21 04/29/21 History [Vitamin D2] Fluticasone/Umeclidin/Vilanter 1 puff IH DAILY 04/29/21 04/29/21 History [Trelegy Ellipta 100-62.5-25] Prescriptions/Medication Reconciliation: No Action Fluticasone/Umeclidin/Vilanter [Trelegy Ellipta 100-
--- NOTE | 2021-04-30 07:42 | HMH.ACPN2 ---
Internal Medicine - PN: Subj *Date: 04/30/21 *Time: 07:42 Interval history: Patient is on 2 L nasal cannula oxygen this morning however is still quite dyspneic on exam. Unable to complete a sentence without taking a breath. Appears chronically ill. Blood pressure stable. Afebrile. Labs show continued improvement in white cell count and normalization of electrolytes. Patient denies chest pain, nausea, vomiting, confusion. Exam Vital signs and Labs for Last 24 Hours: Temp Pulse Resp BP Pulse Ox 97.9 F 88 22 119/71 99 04/30/21 00:00 04/30/21 05:55 04/30/21 00:00 04/30/21 00:00 04/30/21 05:55 Laboratory Results - last 24 hr 04/29/21 13:00: Specimen Source Right radial, O2 % 2, ABG pH 7.46 H, ABG pCO2 37.4, ABG pO2 92.4, ABG HCO3 26.2 H, ABG Total CO2 27.4 H, ABG O2 Saturation 98, ABG Base Excess 2.5 H, Joseph Test acceptable 04/30/21 06:43: WBC 12.2 H D, RBC 4.34 L, Hgb 13.9 L, Hct 45.9, MCV 105.8 H, MCH 32.1 H, MCHC 30.3 L, RDW 13.0, Plt Count 161 D, MPV 8.7, Neut % (Auto) 91.2 H, Lymph % (Auto) 3.8 L, [place] % (Auto) 3.3, Eos % (Auto) 0.4, Baso % (Auto) 1.2, Neut # (Auto) 11.1 H, Lymph # (Auto) 0.5 L, [place] # (Auto) 0.4, Eos # (Auto) 0.1, Baso # (Auto) 0.1 04/30/21 06:43: Sodium 134 L, Potassium 4.4, Chloride 102, Carbon Dioxide 31 H, Anion Gap 5.4, BUN 23 H, Creatinine 0.50 L D, Estimated Creat Clear 61, Estimated GFR 165, Est GFR ( Amer) 200 D, Glucose 160 H, Calcium 8.0 L, Total Bilirubin 0.5, AST 35 D, ALT 55 D, Alkaline Phosphatase 48, Total Protein 5.2 L, Albumin 2.9 L, Globulin 2.3, Albumin/Globulin Ratio 1.3 I & O for Last 24 hours: Intake & Output 04/27/21 04/28/21 04/29/21 04/30/21 23:59 23:59 23:59 23:59 Intake Total 360 / 360 Output Total 400 / 700 300 / 300 Balance -40 / -340 -300 / -300 Weight 60.81 kg 60.5 kg Narrative: - Constitutional mild distress, thin, cachectic, on 2 L nasal cannula - *Routine HEENT Exam Head: Present: normocephalic Eye: Present: EOMI, PERRL ENT: Present: mucous membranes moist - *Routine Neck Exam Present: supple. Absent: lymphadenopathy - *Routine Respiratory Exam Present: prolonged expiratory phase, rhonchi, wheezes, dyspneic - *Routine Cardiovascular Exam Present: RRR - *Routine Abdominal Exam Present: soft, normoactive bowel sounds. Absent: tenderness - *Routine Extremities Exam Absent: cyanosis, clubbing, edema - *Routine Skin Exam Present: warm, NO cyanosis, rash; numerous crude tattoos - *Routine Neurological Exam Present: alert, oriented X3 Assessment and Plan (1) Respiratory failure with hypoxia and hypercapnia Status: Acute Qualifiers: Chronicity: acute on chronic Qualified Code(s): J96.21 - Acute and chronic respiratory failure with hypoxia; J96.22 - Acute and chronic respiratory failure with hypercapnia Category: Medical Code(s): J96.91 - Respiratory failure, unspecified with hypoxia; J96.92 - Respiratory failure, unspecified with hypercapnia (2) Alcohol abuse Status: Acute Category: Social Hx Code(s): F10.10 - Alcohol abuse, uncomplicated (3) COPD (chronic obstructive pulmonary disease) Status: Chronic Qualifiers: COPD type: unspecified COPD Qualified Code(s): J44.9 - Chronic obstructive pulmonary disease, unspecified Category: Medical Code(s): J44.9 - Chronic obstructive pulmonary disease, unspecified (4) Protein-calorie malnutrition, mild Status: Chronic Category: Medical Code(s): E44.1 - Mild protein-calorie malnutrition (5) Tobacco use disorder Status: Chronic Category: Medical Code(s): F17.200 - Nicotine dependence, unspecified, uncomplicated (6) Acute on chronic respiratory failure with hypoxemia Status: Resolved Category: Medical Code(s): J96.21 - Acute and chronic respiratory failure with hypoxia - Assessment and plan all Dx Assessment and Plan for all problems:: 70-year-old male with recurring acute on chronic respiratory failur
[2021-04-30 08:20] LABS: Lymphocytes % 7 % (10-50); Monocytes % 3 % (2-9); Neutrophils % 90 % (42-76); Total Cells Counted 100
[2021-04-30 08:21] LABS: Macrocytosis 1+; Platelet Estimate Normal
--- NOTE | 2021-04-30 09:18 | HMH.PULMPN ---
Internal Medicine - PN: Subj *Date: 04/30/21 *Time: 10:07 Interval history: No acute respiratory events overnight. Tolerating NC well. Off Bipap since yesterday morning. Denies nay new complaints. No new respiratory complaints Exam - Constitutional Constitutional:: Present: no acute distress, comfortable - HENMT Exam HENMT: Present: normocephalic - Eye Exam Eyes:: Present: normal appearance both eyes and related structures - Neck Exam Neck:: Present: normal visual inspection - Respiratory Exam Respiratory:: Present: able to speak in complete sentences, no respiratory distress, wheezing - Cardiovascular Exam Cardiac:: Present: S1, S2 - GI Exam GI:: Present: soft - Skin Exam Skin: Present: warm, no rash - Neurological Exam Neurological: Present: alert - Extremities Exam Extremities: Present: no cyanosis, no clubbing - Psychiatric Exam Psychiatric: Present: normal affect Assessment and Plan (1) Respiratory failure with hypoxia and hypercapnia Status: Acute Qualifiers: Chronicity: acute on chronic Qualified Code(s): J96.21 - Acute and chronic respiratory failure with hypoxia; J96.22 - Acute and chronic respiratory failure with hypercapnia Category: Medical Code(s): J96.91 - Respiratory failure, unspecified with hypoxia; J96.92 - Respiratory failure, unspecified with hypercapnia (2) Alcohol abuse Status: Acute Category: Social Hx Code(s): F10.10 - Alcohol abuse, uncomplicated (3) COPD (chronic obstructive pulmonary disease) Status: Chronic Qualifiers: COPD type: unspecified COPD Qualified Code(s): J44.9 - Chronic obstructive pulmonary disease, unspecified Category: Medical Code(s): J44.9 - Chronic obstructive pulmonary disease, unspecified (4) Protein-calorie malnutrition, mild Status: Chronic Category: Medical Code(s): E44.1 - Mild protein-calorie malnutrition (5) Tobacco use disorder Status: Chronic Category: Medical Code(s): F17.200 - Nicotine dependence, unspecified, uncomplicated (6) Acute on chronic respiratory failure with hypoxemia Status: Resolved Category: Medical Code(s): J96.21 - Acute and chronic respiratory failure with hypoxia - Assessment and plan all Dx Assessment and Plan for all problems:: #Acute on chronic hypoxic hypercarbic respiratory failure: # COPD Exacerbaiton: Mr. Campbell is a 70-year-old male significant smoking history 3 to 4 packs a day, significant alcoholism history, smoked drinking 20-30 beers per day recently admitted for COPD exacerbation discharged home presented to the hospital again with worsening respiratory distress. Blood gas on this admission showed significant worsening hypercarbic respiratory failure, pH of 7.19 with a PCO2 of 73.1. No significant hypoxia noted, PO2 of 229.6. Significant leukocytosis neutrophilic predominant noted on this admission. Afebrile. No significant changes noted on his chest x-ray from his recent discharge. Patient denies any alcohol intake/illicit drug abuse prior to admission. Patient was initiated on BiPAP at admission, BiPAP was weaned the next day morning and ABG 3 hours after weaning the BiPAP did not show any worsening respiratory acidosis. CTA performed did not show any evidence of pulmonary embolism, no airspace disease noted. Interval update: Patient has been off BiPAP since yesterday. No acute events. ABG 3 hours after BiPAP did not show any worsening acidosis. Patient saturating 97% on 2 L nasal cannula, weaned to room air with saturations maintained at 95% and above. Plan: -Continue nasal cannula as needed to maintain O2 saturation goal of 88% and above. -Continue Trelegy 200 inhaler, inhaler technique training provided. DuoNebs every 6 hours on a as needed basis. Please arrange home nebulizer prior to discharge. Please also arrange medication refills including his Trelegy ,albuterol and DuoNeb's to bedside before patient's discharge. Also perform a 6-minute walk t
--- NOTE | 2021-04-30 10:01 | HMH.PTEV ---
Physical Therapy Evaluation Rehab PT IP Evaluation Start: 04/29/21 14:36 Freq: .once Status: Active Protocol: Document 04/30/21 09:51 DANILO (Rec: 04/30/21 10:01 DANILO [id number]) Subjective/History History History This is the initial IP PT evaluation for Gustavo Campbell. Pt is a 70 y/o male admitted on same day of dc after returning to ER for same c/o SOA. Pt has chronic COPD and continues to smoke. Subjective Subjective At first pt refused to participate but after explaining benefits of therapy pt agreed ti sit EOB - pt was I at prior baseline function but does not wish to participate or do any activity due to c/o SOA Rehab PT IP Eval Objective Appearance Patient Behavior Resistive to Care,Patient Baseline Patient Orientation Person,Place,Time Difficulty following instructions none Speech Pattern Mumbled Balance Ability to Arise Able, uses arms to help Sitting Balance Steady, safe Dynamic Sitting Balance Ability Good Transfers Bed Transfer Ability Independent Rehab PT IP prob,goals,plan Problems Date of Evaluation: 04/30/21 PT IP Problems Bed Mobility,Transfers,Gait, Balance,Self care,Safety Rehab Potential Rehab Potential Poor Equipment Needs Assistive Devices Rolling / Wheeled Walker Plan PT Intervention Plan Bed Mobility,Transfers,Gait, Therapeutic Exercise PT Plan Frequency BID Duration LOS Discharge Goals Bed Transfer Ability Independent Sit to Stand Chair Transfer Ability Contact Guard/Hand Hold Ambulation Assistive Device Rolling Walker Ambulation Distance (feet) 5 Discharge Plan PT Discharge Plan Pt will be seen by PT while in [facility] but pt's most significant limitng factor is COPD and oxygen exchange. G -code Required Yes Eval Complexity Eval Charge Codes 43027 - Low Complexity G Codes PT Current Status Self Care PT Current Status Modifier CK-At least 40% but less than 60% impaired, limited or restricted PT Goal Status Self
--- NOTE | 2021-04-30 14:16 | PC.NURSE ---
rounded on patient. patient was noted to be resting, call light and urinal within reach
--- NOTE | 2021-04-30 17:24 | PC.NURSE ---
Marc's POA Gilda called and stated that patient uses [facility] in [place], [phone], for home oxygen and has the concentrator as well as two portable tanks. Gilda also stated that when patient is out of breath he breathes through his mouth and wanted to know if it was possible to get a face mask for oxygen tanks.
[2021-05-01] VITALS: BP 122/63; PULSE 80; PULSE 89; RESP 20; TEMP 36.5; O2SAT 93; O2SAT 94
[2021-05-01 04:00] VITALS: BP 135/68; PULSE 80; PULSE 86; RESP 18; TEMP 36.8; O2SAT 94
[2021-05-01 06:00] VITALS: BMI 20.2
[2021-05-01 06:10] VITALS: PULSE 88; PULSE 90; O2SAT 95
[2021-05-01 06:44] LABS: Basophils % 0.2 % (0.1-2.0); Eosinophils # 0.1 K/mm3 (0.0-0.4); Eosinophils % 0.3 % (0.1-12.0); Hematocrit 43.4 % (42.0-52.0); Lymphocytes # 0.6 K/mm3 (0.7-4.5); Lymphocytes % 4.1 % (10-50); Mean Corpuscular HGB Conc 32.2 g/dL (31.8-35.4); Mean Corpuscular Hemoglobin 32.5 pg (27.0-31.2); Mean Corpuscular Volume 100.8 fl (80-94); Mean Platelet Volume 9.1 fl (7.4-10.4); Monocytes # 0.4 K/mm3 (0.1-1.0); Monocytes % 2.7 % (1.7-9.3); Neutrophils # 12.8 K/mm3 (1.8-7.8); Neutrophils % 92.7 % (37.0-80.0); Platelet Count 174 K/mm3 (142-424); Red Cell Distribution Width 12.9 % (11.5-17.5); White Blood Count 13.8 K/mm3 (4.8-10.8)
[2021-05-01 06:47] LABS: MANUAL DIFFERENTIAL MANUAL DIFFERENTIAL (MANUAL DIFF)
[2021-05-01 06:52] LABS: Blood Urea Nitrogen 21 mg/dl (9-20); Calcium 7.8 mg/dl (8.4-10.2); Carbon Dioxide 30 mmol/L (22.0-30.0); Chloride 102 mmol/L (98-107); Creatinine Clearance Estimated 62 mL/min (50-200); Estimated Glomerular Filt Rate 165 ml/min (>60); GFR (African American) 200 ML/MIN (>60); Glucose 146 mg/dl (74-100); Sodium 133 mmol/L (136-145)
[2021-05-01 06:53] LABS: Alanine Aminotransferase 51 U/L (12-78); Albumin Level 2.7 g/dl (3.5-5.0); Albumin/Globulin Ratio 1.2 (1.1-1.8); Alkaline Phosphatase 42 U/L (38-126); Aspartate Amino Transferase 33 U/L (17-59); Bilirubin,Total 0.5 mg/dl (0.2-1.3); Globulin 2.2 g/dL (1.3-3.2); Total Protein,Serum 4.9 g/dl (6.3-8.2)
[2021-05-01 08:00] VITALS: BP 137/54; PULSE 100; PULSE 96; RESP 16; TEMP 36.7; O2SAT 98
--- NOTE | 2021-05-01 08:54 | HMH.DCSUM ---
General - General Admission date:: 04/28/21 Discharge date: 05/01/21 HPI HPI: 70-year-old white male with severe COPD who smokes multiple packs of cigarettes daily and drinks over 24 cans of beer daily. He was in the hospital last week for COPD exacerbation, had been off BiPAP for over 36 hours and yesterday essentially demanded to go home and had implied he would leave AMA without being discharged. Given his ability to do activities of daily living in the hospital and his maintenance of his O2 saturations, mental status and physical activity on nasal cannula oxygen, we arrange discharge with antibiotics, steroids, home nebulizers-which she has never had prescribed to him before-and his regular inhalers as well as short-term follow-up. Apparently he got in the car, smoked 5 or 6 cigarettes in the car on the way to his house and became dyspneic and his family became nervous and he returned back to the emergency department. Since he been off his oxygen, he was hypoxic, hypercapnic and acidotic. Placed back on BiPAP and readmitted to the hospital. This morning he feels better. Hospital Course Hospital Course: Patient was admitted, placed on Levaquin, lower dose steroids and nebs. Pulmonary was consulted. Patient did well on the BiPAP overnight and was able to once again be weaned off to 2 L. He tolerated this well and has been on 2 L the past 48 hours. Once again, we will try to discharge home. We will change antibiotics to Levaquin. Other duo nebs, steroids, etc. will remain unchanged. He does want to try to quit smoking and we will send him a nicotine patch. Follow-up on Thursday in our office in [place]. Objective Vital signs: Temp Pulse Resp BP Pulse Ox 98.0 F 96 H 16 137/54 L 98 05/01/21 08:00 05/01/21 08:00 05/01/21 08:00 05/01/21 08:00 05/01/21 08:00 no acute distress - *Routine HEENT Exam Head: Present: normocephalic Eye: Present: EOMI, PERRL ENT: Present: mucous membranes moist - *Routine Neck Exam Present: supple - *Routine Respiratory Exam Present: prolonged expiratory phase, rhonchi, wheezes - *Routine Cardiovascular Exam Present: RRR - *Routine Abdominal Exam Present: soft, normoactive bowel sounds. Absent: tenderness - *Routine Extremities Exam Absent: cyanosis, clubbing, edema - *Routine Skin Exam Present: warm. Absent: rash - Detailed Eye Exam Eyelids: Bilateral normal inspection Results Labs on day of discharge: Labs from last 24 hours 05/01/21 05/01/21 06:19 06:19 WBC 13.8 H RBC 4.30 L Hgb 14.0 L Hct 43.4 MCV 100.8 H MCH 32.5 H MCHC 32.2 RDW 12.9 Plt Count 174 MPV 9.1 Neut % (Auto) 92.7 H Lymph % (Auto) 4.1 L [place] % (Auto) 2.7 Eos % (Auto) 0.3 Baso % (Auto) 0.2 Neut # (Auto) 12.8 H Lymph # (Auto) 0.6 L [place] # (Auto) 0.4 Eos # (Auto) 0.1 Baso # (Auto) 0.0 Sodium 133 L Potassium 4.0 Chloride 102 Carbon Dioxide 30 Anion Gap 5.0 BUN 21 H Creatinine 0.50 L Estimated Creat Clear 62 Estimated GFR 165 Est GFR ( Amer) 200 Glucose 146 H Calcium 7.8 L Total Bilirubin 0.5 AST 33 ALT 51 Alkaline Phosphatase 42 Total Protein 4.9 L Albumin 2.7 L Globulin 2.2 Albumin/Globulin Ratio 1.2 Preliminary micro results at discharge 04/28/21 16:47 Sputum Culture - Preliminary Sputum - Expectorated Sputum DS: Diagnosis - Discharge Diagnosis (1) Respiratory failure with hypoxia and hypercapnia Status: Acute (2) Alcohol abuse Status: Acute (3) COPD (chronic obstructive pulmonary disease) Status: Chronic (4) Protein-calorie malnutrition, mild Status: Chronic (5) Tobacco use disorder Status: Chronic (6) Acute on chronic respiratory failure with hypoxemia Status: Resolved Discharge Plan - Patient Discharge Instructions ACTIVITY: Continue current activity DIET: continue same diet Patient Instructions: Chroni
--- NOTE | 2021-05-01 09:27 | PC.NURSE ---
PT AMBULATED 77 FEET AND PT DESATED TO 86 %. PT WAS VERY DYSPNEIC, ACCESSORY MUSCLE USE AND PURSED LIPPED BREATHING.
[2021-05-01 09:34] LABS: Lymphocytes % 5 % (10-50); Macrocytosis 1+; Monocytes % 5 % (2-9); Neutrophils % 90 % (42-76); Platelet Estimate Normal; Total Cells Counted 100
--- NOTE | 2021-05-01 09:37 | CARE MANAGER ---
Spoke with Samira, whom patient lives with, she states he has been using her Oxygen concentrator and does not have one of his own, but does have his nebulizer machine. They were not able to cigar packer and picker the nebulizer medication last discharge because [facility] pharmacy did not have it in stock. She states she does have for him his antibiotics and steroids. Informed Samira that patient has switched antibiotics and new antibiotic, nicotene patch, and neb meds should be at [facility] pharmacy. She verbalized understanding. Left message for patient's daughter, Gilda, regarding all as well. Faxed information to [facility] for portable O2 and concentrator for patient. SIMBA Barfield
--- NOTE | 2021-05-01 09:43 | HMH.PULMPN ---
Internal Medicine - PN: Subj *Date: 05/01/21 *Time: 10:34 Interval history: Patient admits continued improvement in symptoms. Denies any new respiratory complaints. Exam - Constitutional Constitutional:: Present: no acute distress, comfortable - HENMT Exam HENMT: Present: normocephalic, atraumatic - Eye Exam Eyes:: Present: normal appearance both eyes and related structures - Neck Exam Neck:: Present: normal visual inspection - Respiratory Exam Respiratory:: Present: able to speak in complete sentences, no respiratory distress, wheezing - Cardiovascular Exam Cardiac:: Present: S1, S2 - GI Exam GI:: Present: soft - Skin Exam Skin: Present: warm, no rash - Neurological Exam Neurological: Present: alert, awake, normal cognition - Extremities Exam Extremities: Present: no cyanosis, no clubbing, no edema Assessment and Plan (1) Respiratory failure with hypoxia and hypercapnia Status: Acute Qualifiers: Chronicity: acute on chronic Qualified Code(s): J96.21 - Acute and chronic respiratory failure with hypoxia; J96.22 - Acute and chronic respiratory failure with hypercapnia Category: Medical Code(s): J96.91 - Respiratory failure, unspecified with hypoxia; J96.92 - Respiratory failure, unspecified with hypercapnia (2) Alcohol abuse Status: Acute Category: Social Hx Code(s): F10.10 - Alcohol abuse, uncomplicated (3) COPD (chronic obstructive pulmonary disease) Status: Chronic Qualifiers: COPD type: unspecified COPD Qualified Code(s): J44.9 - Chronic obstructive pulmonary disease, unspecified Category: Medical Code(s): J44.9 - Chronic obstructive pulmonary disease, unspecified (4) Protein-calorie malnutrition, mild Status: Chronic Category: Medical Code(s): E44.1 - Mild protein-calorie malnutrition (5) Tobacco use disorder Status: Chronic Category: Medical Code(s): F17.200 - Nicotine dependence, unspecified, uncomplicated (6) Acute on chronic respiratory failure with hypoxemia Status: Resolved Category: Medical Code(s): J96.21 - Acute and chronic respiratory failure with hypoxia - Assessment and plan all Dx Assessment and Plan for all problems:: #Acute on chronic hypoxic hypercarbic respiratory failure: # COPD Exacerbaiton: Mr. Campbell is a 70-year-old male significant smoking history 3 to 4 packs a day, significant alcoholism history, smoked drinking 20-30 beers per day recently admitted for COPD exacerbation discharged home presented to the hospital again with worsening respiratory distress. Blood gas on this admission showed significant worsening hypercarbic respiratory failure, pH of 7.19 with a PCO2 of 73.1. No significant hypoxia noted, PO2 of 229.6. Significant leukocytosis neutrophilic predominant noted on this admission. Afebrile. No significant changes noted on his chest x-ray from his recent discharge. Patient denies any alcohol intake/illicit drug abuse prior to admission. Patient was initiated on BiPAP at admission, BiPAP was weaned the next day morning and ABG 3 hours after weaning the BiPAP did not show any worsening respiratory acidosis. CTA performed did not show any evidence of pulmonary embolism, no airspace disease noted. Patient needed BiPAP for 12 hours and has been off BiPAP throughout his hospital admission with no evidence of worsening hypercarbic respiratory failure. Interval update: Leukocytosis continues to improve. Afebrile. Hemodynamically stable. Continued improvement in respiratory symptoms, auscultation significantly impaired only minimal end expiratory wheeze. Exertional hypoxia, continue oxygen with exertion. Nebulizer machine arranged at home. All his inhalers were refilled to bedside prior to his discharge. Plan: -Continue nasal cannula as needed to maintain O2 saturation goal of 88% and above. -Continue Trelegy 200 inhaler, inhaler technique training provided. DuoNebs every 6 hours on a as needed basis. -Levofloxacin
--- NOTE | 2021-05-01 09:55 | HMH.PHAINT ---
Discharge counseling complete. Informed pt of new medications, purpose, how to take, and potential side effects. Pt understood and had no questions or concerns.
--- NOTE | 2021-05-01 09:57 | SW/DCPLANNER ---
Addendum entered by Michelle Garay 05/01/21 11:10: Joseline has stated that home health services will begin this week for this patient. Original Note: The plan is for this patient to discharge home today. Per patients family: patient is currently established with [facility] for home O2. I will also set this patient up with home health service: patient info/order has been faxed to [facility]. Patient is planned to discharge home later today.
--- NOTE | 2021-05-02 13:56 | CARE MANAGER ---
Left message on patient's niece's phone for call back. Did speak with friend that he lives with. She is not with him right now. She states he hadn't gotten his medication this morning when she left, but perhaps he had since she left for work. She states he seemed to be doing well this morning. SIMBA Barfield
== END 2021-05-01 11:30 | disposition home or self-care (01) | DRG 189 ==
LOC: ER 19:46 → 2ND 20:29
PROVIDERS: Internal Medicine Pulmonary Disease; Admitting Provider Emergency Medicine; Emergency Provider Emergency Medicine; PCP Internal Medicine Adolescent Medicine; Visit Provider Internal Medicine Adolescent Medicine
DX: J96.22 Acute and chronic respiratory failure with hypercapnia (principal); E44.1 Mild protein-calorie malnutrition; Z68.1 Body mass index [BMI] 19.9 or less, adult; J44.1 Chronic obstructive pulmonary disease with (acute) exacerbation; J96.21 Acute and chronic respiratory failure with hypoxia; E78.5 Hyperlipidemia, unspecified; I10 Essential (primary) hypertension; F10.20 Alcohol dependence, uncomplicated; F17.210 Nicotine dependence, cigarettes, uncomplicated
CPT/HCPCS: 36415; 71045; 71275; 80053; 82803; 84484; 85007; 85025; 87070; 87205; 93005; 93306; 94618; 94640; 94660; 94667; 94761; 96374; 97161; 99285; C9803; G0238; J1956; Q9967; U0003; U0005

== ENCOUNTER → 2021-05-09 13:49 | Outpatient (CLI) | payer MEDICARE, MEDICAID, SELFPAY ==
[2021-05-09 14:13] LABS: ABG Base Excess -6.1 mmol/L (-2.4-2.3); ABG HCO3 18.9 mmhg (22.0-26.0); ABG Oxygen Saturation 95 % (90-100); ABG PH 7.39 mmol/L (7.35-7.45); ABG PO2 73.7 mmhg (80-100); ABG TCO2 19.9 mmhg (23-27)
[2021-05-09 14:18] LABS: Allen's Test ACCEPTABLE; Oxygen RA %; Source Right Radial
== END ==
PROVIDERS: PCP Internal Medicine Adolescent Medicine; Visit Provider Internal Medicine Pulmonary Disease
DX: J44.9 Chronic obstructive pulmonary disease, unspecified (principal)
CPT/HCPCS: 82803

== ENCOUNTER 2021-05-11 23:57 | Observation (INO) | payer MEDICARE, MEDICAID, SELFPAY ==
[2021-05-11 23:54] VITALS: BP 164/77; PULSE 123; RESP 26; TEMP 39.1; O2SAT 94; BMI 20.9
[2021-05-11 23:55] VITALS: BMI 20.9
--- NOTE | 2021-05-11 23:56 | XR_ITS ---
PROCEDURE INFORMATION: Exam: XR Chest Exam date and time: 05/12/2021 12:06 AM Age: 70 years old Clinical indication: Shortness of breath; Additional info: SOA TECHNIQUE: Imaging protocol: XR of the chest. Views: 1 view. COMPARISON: CR XR CHEST PORTABLE 04/28/2021 5:46 PM FINDINGS: Lungs: Diffuse chronic interstitial changes. Linear opacities in the bilateral lung bases likely related to atelectasis. No focal pulmonary consolidation. Pleural spaces: No pleural effusion. No pneumothorax. Heart/Mediastinum: No acute findings or cardiomegaly. Bones/joints: No acute findings. IMPRESSION: 1. No acute appearing consolidation. 2. Linear opacities in the bilateral lung bases likely related to atelectasis. 3. Chronic interstitial changes.
--- NOTE | 2021-05-11 23:56 | ECG_ITS ---
APPROVED REPORT Exam: Resting ECG HR:116 bpm ECG Measurements Heart Rate 116 AXES IN 126 P 83 QRSd 89 QRS 48 QT 348 T 253 QTc 417 Conclusion SINUS TACHYCARDIA WITH OCCASIONAL VENTRICULAR PREMATURE COMPLEXES ST DEVIATION AND MODERATE T-WAVE ABNORMALITY, CONSIDER ANTEROLATERAL ISCHEMIA [-0.1+ mV T-WAVE IN V3-V6] ST DEVIATION AND MODERATE T-WAVE ABNORMALITY, CONSIDER INFERIOR ISCHEMIA [-0.1+ mV T-WAVE IN II/aVF] ABNORMAL ECG UNCONFIRMED REPORT Electronically signed by : Marques Logan MD 05/12/2021 20:11:24
[2021-05-12] VITALS (20 sets, daily range): BP systolic 110–156; BP diastolic 54–74; PULSE 80–114; RESP 16–26; TEMP 36.4–37.2; O2SAT 93–98; BMI 18.8
[2021-05-12 00:22] LABS: Microscopic, Urine URINE MICROSCOPIC (MICROSCOPIC)
[2021-05-12 00:28] LABS: Appearance,Urine CLEAR (Clear); Bilirubin,Urine Negative (Negative); Blood, Urine 1+ (Negative); Color,Urine YELLOW (Yellow); Glucose,Urine (UA) Negative (Negative); Ketones,Urine Negative (Negative); Leukocyte Esterase,Urine Negative (Negative); Nitrate,Urine Negative (Negative); Protein,Urine Negative (Negative); Specific Gravity, Urine 1.025 (1.005-1.030); Urobilinogen,Urine 0.2 EU/dl (0.2)
[2021-05-12 00:31] LABS: Amorphous Sediment,Urine Trace /lpf; Coronavirus 19, PCR Not Detected (NotDetected); Influenza B, PCR Not Detected (NotDetected); Squamous Epithelial Cell,Urine Occasional #/hpf (0-5); WBC,Urine Occasional #/hpf (0-3)
[2021-05-12 00:36] LABS: Basophils % 0.3 % (0.1-2.0); Eosinophils # 0.1 K/mm3 (0.0-0.4); Eosinophils % 0.5 % (0.1-12.0); Hematocrit 42.4 % (42.0-52.0); Lymphocytes # 0.4 K/mm3 (0.7-4.5); Lymphocytes % 4.2 % (10-50); Mean Corpuscular HGB Conc 32.9 g/dL (31.8-35.4); Mean Corpuscular Hemoglobin 32.5 pg (27.0-31.2); Mean Corpuscular Volume 98.8 fl (80-94); Mean Platelet Volume 7.9 fl (7.4-10.4); Monocytes # 0.4 K/mm3 (0.1-1.0); Monocytes % 4.1 % (1.7-9.3); Neutrophils # 9.3 K/mm3 (1.8-7.8); Neutrophils % 90.9 % (37.0-80.0); Platelet Count 195 K/mm3 (142-424); Red Blood Count 4.29 M/mm3 (4.60-6.20); Red Cell Distribution Width 13.5 % (11.5-17.5); White Blood Count 10.2 K/mm3 (4.8-10.8)
[2021-05-12 00:43] LABS: MANUAL DIFFERENTIAL MANUAL DIFFERENTIAL (MANUAL DIFF)
[2021-05-12 00:56] LABS: Alanine Aminotransferase 48 U/L (12-78); Albumin Level 3.5 g/dl (3.5-5.0); Albumin/Globulin Ratio 1.3 (1.1-1.8); Alkaline Phosphatase 96 U/L (38-126); Anion Gap 8.8 mEq/L (5-15); Aspartate Amino Transferase 56 U/L (17-59); Bilirubin,Total 0.7 mg/dl (0.2-1.3); Blood Urea Nitrogen 4 mg/dl (9-20); Calcium 8.3 mg/dl (8.4-10.2); Carbon Dioxide 26 mmol/L (22.0-30.0); Chloride 98 mmol/L (98-107); Creatinine Clearance Estimated 64 mL/min (50-200); Estimated Glomerular Filt Rate 214 ml/min (>60); GFR (African American) 259 ML/MIN (>60); Globulin 2.7 g/dL (1.3-3.2); Glucose 124 mg/dl (74-100); Potassium 3.8 mmoL/L (3.5-5.1); Sodium 129 mmol/L (136-145); Total Protein,Serum 6.2 g/dl (6.3-8.2)
[2021-05-12 01:01] LABS: C-Reactive Protein 60.4 mg/L (0-4); Lymphocytes % 7 % (10-50); Neutrophils % 85 % (42-76); Platelet Estimate Normal; RBC Morphology Normal; Total Cells Counted 100
[2021-05-12 01:07] LABS: Erythrocyte Sedimentation Rate 27 mm/hr (0-20)
[2021-05-12 01:08] LABS: NT Pro Brain Natriuretic Pep. 2480 pg/mL (0-125)
[2021-05-12 01:11] LABS: Troponin I 0.12 ng/ml (0.00-0.034)
--- NOTE | 2021-05-12 01:15 | HMH.EDSOB ---
ED Disposition Clinical Impression: Acute exacerbation of chronic obstructive airways disease, Flu, Severe sepsis with acute organ dysfunction Congestive heart failure Qualifiers: Heart failure type: diastolic Heart failure chronicity: acute on chronic Qualified Code(s): I50.33 - Acute on chronic diastolic (congestive) heart failure Disposition: Admitted as Observation Condition on Discharge: Good Referrals: Marques Logan MD [Primary Care Provider] - - Critical Care Critical Care Time: No Attestation: On 05/11/21, the high probability of a clinically significant, sudden or life threatening deterioration of the following system(s) required my full and direct attention, intervention and personal management. The time I documented below is in addition to time spent performing reported procedures but includes the following listed in this critical care notation. Medical Decision Making - Medical Records Medical records reviewed: Yes: I reviewed the patient's medical records. - Jason Inquiry Pt receiving controlled substance: No Vital Signs: 05/11/21 23:54 05/12/21 00:30 05/12/21 01:00 Temperature 102.4 F H Temperature Source Rectal Pulse Rate 114 H 110 H Pulse Rate [Right] 123 H Respiratory Rate 26 H Blood Pressure 156/74 H 138/60 Blood Pressure [Right Arm] 164/77 H Blood Pressure Mean 101 90 Blood Pressure Mean [Right Arm] 106 02 Sat by Pulse Oximetry 94 L 94 L 94 L Oxygen Delivery Method Nasal Cannula Oxygen Flow Rate (LPM) 2 2 2 05/12/21 01:01 05/12/21 01:02 05/12/21 01:30 Temperature 99.0 F Temperature Source Pulse Rate 97 H 98 H 110 H Pulse Rate [Right] Respiratory Rate Blood Pressure 136/61 Blood Pressure [Right Arm] Blood Pressure Mean 92 Blood Pressure Mean [Right Arm] 02 Sat by Pulse Oximetry 93 L Oxygen Delivery Method Oxygen Flow Rate (LPM) 2 - Lab Data Lab results reviewed: Yes: I reviewed the patient's lab results. Lab Results 05/11/21 00:05: WBC 10.2, RBC 4.29 L, Hgb 14.0 L, Hct 42.4, MCV 98.8 H, MCH 32.5 H, MCHC 32.9, RDW 13.5, Plt Count 195, MPV 7.9, Neut % (Auto) 90.9 H, Lymph % (Auto) 4.2 L, [place] % (Auto) 4.1, Eos % (Auto) 0.5, Baso % (Auto) 0.3, Neut # (Auto) 9.3 H, Lymph # (Auto) 0.4 L, [place] # (Auto) 0.4, Eos # (Auto) 0.1, Baso # (Auto) 0.0, Total Counted 100, Neutrophils % (Manual) 85 H, Band Neutrophils % 8.0, Lymphocytes % (Manual) 7 L, Platelet Estimate Normal, RBC Morphology Normal, ESR 27 H 05/11/21 00:05: Sodium 129 L, Potassium 3.8, Chloride 98, Carbon Dioxide 26, Anion Gap 8.8, BUN 4 L, Creatinine 0.40 L, Estimated Creat Clear 64, Estimated GFR 214, Est GFR ( Amer) 259, Glucose 124 H, Calcium 8.3 L, Total Bilirubin 0.7, AST 56, ALT 48, Alkaline Phosphatase 96, Troponin I 0.12 H, C-Reactive Protein 60.4 H, Total Protein 6.2 L D, Albumin 3.5, Globulin 2.7, Albumin/Globulin Ratio 1.3, Procalcitonin 0.068 05/12/21 00:05: Urine Color Yellow, Urine Appearance Clear, Urine pH 6.0, Ur Specific [place] 1.025, Urine Protein Negative, Urine Glucose (UA) Negative, Urine Ketones Negative, Urine Blood 1+, Urine Nitrate Negative, Urine Bilirubin Negative, Urine Urobilinogen 0.2, Ur Leukocyte Esterase Negative, Urine RBC 5-10, Urine WBC Occasional, Ur Squamous Epith Cells Occasional, Amorphous Sediment Trace 05/12/21 00:05: NT-Pro-B Natriuret Pep 2480 H 05/12/21 00:05: SARS-CoV-2 (PCR) Not detected, Influenza A Untype (PCR) Detected A, Influenza Type B (PCR) Not detected 05/12/21 00:05: Lactate 2.3 H 05/12/21 00:05: Plasma/Serum Alcohol 44 H Result diagrams: 05/11/21 00:05 05/11/21 00:05 Orders (Tests/Meds): ED MEDICATIONS Generic Name Dose Route Start Last Admin Trade Name Freq PRN Reason Stop Dose Admin Sodium Chloride 1,000 mls @ 999 mls/hr 05/12/21 00:15 05/12/21 00:12 Sod Chlor 0.9% 1000ml Bag IV 05/12/21 01:15 999 mls/hr .Q1H1M FLORINDA Administration Sodium Chloride 1,930 mls @ 965 mls/hr 05/12/21 02:05 05/12/21
[2021-05-12 01:16] LABS: Procalcitonin 0.068 ng/mL (0.0-2.0)
[2021-05-12 01:18] LABS: Influenza A, PCR Detected (NotDetected)
[2021-05-12 01:40] LABS: Ethyl Alcohol 44 mg/dl (0-10)
[2021-05-12 01:42] LABS: Lactic Acid 2.3 mmol/L (0.7-2.1)
[2021-05-12 02:50] LABS: Reflex Lactic Add Lactic Reflex
--- NOTE | 2021-05-12 02:53 | PC.NURSE ---
Dr. Logan pagekranthi for ED
[2021-05-12 03:02] LABS: Lactic Acid Follow Up (RFLX 1) 0.9 mmol/L (0.7-2.1)
[2021-05-12 03:15] LABS: Troponin I 0.16 ng/ml (0.00-0.034)
--- NOTE | 2021-05-12 03:43 | PC.NURSE ---
patient up to floor via wheelchair @ this time.
[2021-05-12 07:30] LABS: Basophils % 0.3 % (0.1-2.0); Eosinophils % 0.1 % (0.1-12.0); Hemoglobin 13.2 g/dL (14.1-18.0); Lymphocytes # 0.3 K/mm3 (0.7-4.5); Lymphocytes % 3.6 % (10-50); Mean Corpuscular HGB Conc 32.2 g/dL (31.8-35.4); Mean Corpuscular Hemoglobin 32.3 pg (27.0-31.2); Mean Corpuscular Volume 100.5 fl (80-94); Mean Platelet Volume 8.1 fl (7.4-10.4); Monocytes # 0.2 K/mm3 (0.1-1.0); Monocytes % 1.9 % (1.7-9.3); Neutrophils # 7.1 K/mm3 (1.8-7.8); Neutrophils % 94.1 % (37.0-80.0); Platelet Count 172 K/mm3 (142-424); Red Blood Count 4.08 M/mm3 (4.60-6.20); Red Cell Distribution Width 13.4 % (11.5-17.5); White Blood Count 7.5 K/mm3 (4.8-10.8)
[2021-05-12 07:35] LABS: Anion Gap 6.2 mEq/L (5-15); Blood Urea Nitrogen 6 mg/dl (9-20); Calcium 7.3 mg/dl (8.4-10.2); Carbon Dioxide 29 mmol/L (22.0-30.0); Chloride 98 mmol/L (98-107); Creatinine Clearance Estimated 58 mL/min (50-200); Estimated Glomerular Filt Rate 214 ml/min (>60); GFR (African American) 259 ML/MIN (>60); Glucose 173 mg/dl (74-100); Magnesium 1.6 mg/dl (1.6-2.3); Potassium 3.2 mmoL/L (3.5-5.1); Sodium 130 mmol/L (136-145)
[2021-05-12 07:47] LABS: MANUAL DIFFERENTIAL MANUAL DIFFERENTIAL (MANUAL DIFF)
--- NOTE | 2021-05-12 08:24 | PC.NURSE ---
Weight 05/12/2021 Patient weighs 130 lbs.
--- NOTE | 2021-05-12 09:03 | HMH.HP ---
*Admission Date: 05/12/21 *Chief complaint: Cough, shortness of air/fever *History of present illness: 70-year-old white male with severe emphysema, heavy and long-term smoker who has recently been in the hospital for COPD exacerbations x2, has been home for about 4 days but had a fever and cough, came back to the ER last night, found to have mildly elevated BNP level, but was found to have cough, congestion, dyspnea, fever and a positive flu a serology. [facility] History I have reviewed the patient's past medical history: Yes Medical History: Reports:: Chronic Obstructive Pulmonary Disease (COPD), Congenital Heart Disease, Hyperlipidemia, Hypertension Denies:: Diabetes Mellitus Type 1, Diabetes Mellitus Type 2 *Have you ever received a pneumonia vaccine?: No *Have you received a flu vaccine this season?: No - *Social History Smoking Status: Former smoker Tobacco Type: cigarettes # Packs/Day (cigarettes): 2 Alcohol Intake: current Alcohol Intake Frequency:: 3 or more drinks per day *Occupational Status:: retired Household Members: friend(s) *Travel in the last 8 weeks: None Family Hx:: Unable to obtain Review of Systems - Review of Systems Review of systems:: pertinent systems reviewed and negative unless documented below - *Neurologic Reports weakness, Denies headache(s), Denies seizure-like activity Meds Home Medications Medication Instructions Recorded Confirmed Type Fluticasone/Umeclidin/Vilanter 1 dose IH DAILY 04/22/21 05/12/21 History [Sharon Perdomota 100-62.5-25] Ascorbic Acid 500 mg PO DAILY 04/23/21 05/12/21 History Ipratropium/Albuterol Sulfate 3 ml IH QID 04/28/21 05/12/21 History [Duoneb 3mL neb] Ergocalciferol (Vitamin D2) 1,250 mcg PO .2 TIMES PER WEEK 04/29/21 05/12/21 History [Vitamin D2] Nicotine [Nicoderm 21mg/24hr 21 mg TD DAILYP PRN #30 patch 05/01/21 05/12/21 Rx patch] Nystatin 400,000 unit PO QID 05/12/21 05/12/21 History Allergies Allergy/AdvReac Type Severity Reaction Status Date / Time No Known Allergies Allergy Verified 05/09/21 13:12 Exam Vital signs and Labs for Last 24 Hours: Temp Pulse Resp BP Pulse Ox 97.6 F 93 H 18 113/60 96 05/12/21 08:00 05/12/21 08:00 05/12/21 08:00 05/12/21 08:00 05/12/21 08:00 Laboratory Results - last 24 hr 05/11/21 00:05: WBC 10.2, RBC 4.29 L, Hgb 14.0 L, Hct 42.4, MCV 98.8 H, MCH 32.5 H, MCHC 32.9, RDW 13.5, Plt Count 195, MPV 7.9, Neut % (Auto) 90.9 H, Lymph % (Auto) 4.2 L, [place] % (Auto) 4.1, Eos % (Auto) 0.5, Baso % (Auto) 0.3, Neut # (Auto) 9.3 H, Lymph # (Auto) 0.4 L, [place] # (Auto) 0.4, Eos # (Auto) 0.1, Baso # (Auto) 0.0, Total Counted 100, Neutrophils % (Manual) 85 H, Band Neutrophils % 8.0, Lymphocytes % (Manual) 7 L, Platelet Estimate Normal, RBC Morphology Normal, ESR 27 H 05/11/21 00:05: Sodium 129 L, Potassium 3.8, Chloride 98, Carbon Dioxide 26, Anion Gap 8.8, BUN 4 L, Creatinine 0.40 L, Estimated Creat Clear 64, Estimated GFR 214, Est GFR ( Amer) 259, Glucose 124 H, Calcium 8.3 L, Total Bilirubin 0.7, AST 56, ALT 48, Alkaline Phosphatase 96, Troponin I 0.12 H, C-Reactive Protein 60.4 H, Total Protein 6.2 L D, Albumin 3.5, Globulin 2.7, Albumin/Globulin Ratio 1.3, Procalcitonin 0.068 05/12/21 00:05: Urine Color Yellow, Urine Appearance Clear, Urine pH 6.0, Ur Specific [place] 1.025, Urine Protein Negative, Urine Glucose (UA) Negative, Urine Ketones Negative, Urine Blood 1+, Urine Nitrate Negative, Urine Bilirubin Negative, Urine Urobilinogen 0.2, Ur Leukocyte Esterase Negative, Urine RBC 5-10, Urine WBC Occasional, Ur Squamous Epith Cells Occasional, Amorphous Sediment Trace 03/20/22 00:05: NT-Pro-B Natriuret Pep 2480 H 05/12/21 00:05: SARS-CoV-2 (PCR) Not detected, Influenza A Untype (PCR) Detected A, Influenza Type B (PCR) Not detected 05/12/21 00:05: Lactate 2.3 H 05/12/21 00:05: Plasma/Serum Alcohol 44 H 05/12/21 02:45: Troponin I 0.16 H 05/12/21 02:45: Lactate 0.9 05/12/21 06:42: WBC 7.5 D, RBC 4.08 L
--- NOTE | 2021-05-12 10:10 | HMH.PHAVTE ---
[facility] Pharmacy VTE Monitoring - Patient Demographics Admission date: 05/12/21 Report Date: 05/12/21 Time: 10:10 Allergies/Adverse Reactions: Patient Allergies No Known Allergies Allergy (Verified 05/09/21 13:12) Height: 1.75 m Weight: 58.06 kg Patient Problems: Current Active Problems Acute exacerbation of chronic obstructive airways disease (Acute) Flu (Acute) Congestive heart failure (Acute) Severe sepsis with acute organ dysfunction (Acute) Influenza A (Acute) - VTE Risk Labs: VTE Related Lab Results Hgb 13.2 g/dL (14.1-18.0) L 05/12/21 06:42 Hct 41.0 % (42.0-52.0) L 05/12/21 06:42 Plt Count 172 K/mm3 (142-424) 05/12/21 06:42 BUN 6 mg/dl (9-20) L D 05/12/21 06:42 Creatinine 0.40 mg/dl (0.66-1.25) L 05/12/21 06:42 Estimated Creat Clear 58 mL/min (50-200) 05/12/21 06:42 VTE Risk Level: Low Risk - Prophylaxis Types of VTE Prophylaxis: TEDS Knee High Location of Applied Device: Bilateral Lower Extremeties (LETI HOSE ORDERED)
[2021-05-12 11:08] LABS: Lymphocytes % 4 % (10-50); Monocytes % 1 % (2-9); Neutrophils % 95 % (42-76); Total Cells Counted 100
[2021-05-12 11:13] LABS: Platelet Estimate Normal; RBC Morphology Normal
[2021-05-13] VITALS: BP 110/58; PULSE 70; PULSE 83; RESP 16; TEMP 36.6; O2SAT 94
[2021-05-13 04:00] VITALS: BP 126/62; PULSE 60; PULSE 91; RESP 18; TEMP 36.6; O2SAT 96
[2021-05-13 05:53] VITALS: BMI 18.9
[2021-05-13 06:14] VITALS: PULSE 76; PULSE 80; O2SAT 95
[2021-05-13 07:02] LABS: Basophils % 0.2 % (0.1-2.0); Eosinophils % 0.1 % (0.1-12.0); Hematocrit 39.4 % (42.0-52.0); Hemoglobin 12.8 g/dL (14.1-18.0); Lymphocytes # 0.6 K/mm3 (0.7-4.5); Lymphocytes % 6.6 % (10-50); Mean Corpuscular HGB Conc 32.6 g/dL (31.8-35.4); Mean Corpuscular Hemoglobin 32.2 pg (27.0-31.2); Mean Corpuscular Volume 98.8 fl (80-94); Mean Platelet Volume 8.3 fl (7.4-10.4); Monocytes # 0.3 K/mm3 (0.1-1.0); Monocytes % 3.8 % (1.7-9.3); Neutrophils # 7.7 K/mm3 (1.8-7.8); Neutrophils % 89.4 % (37.0-80.0); Platelet Count 188 K/mm3 (142-424); Red Blood Count 3.99 M/mm3 (4.60-6.20); Red Cell Distribution Width 13.4 % (11.5-17.5); White Blood Count 8.6 K/mm3 (4.8-10.8)
[2021-05-13 07:09] LABS: Alanine Aminotransferase 42 U/L (12-78); Albumin Level 2.7 g/dl (3.5-5.0); Albumin/Globulin Ratio 1.2 (1.1-1.8); Alkaline Phosphatase 69 U/L (38-126); Anion Gap 5.2 mEq/L (5-15); Aspartate Amino Transferase 51 U/L (17-59); Bilirubin,Total 0.4 mg/dl (0.2-1.3); Blood Urea Nitrogen 11 mg/dl (9-20); Calcium 7.6 mg/dl (8.4-10.2); Carbon Dioxide 29 mmol/L (22.0-30.0); Chloride 100 mmol/L (98-107); Creatinine Clearance Estimated 58 mL/min (50-200); Estimated Glomerular Filt Rate 214 ml/min (>60); GFR (African American) 259 ML/MIN (>60); Globulin 2.3 g/dL (1.3-3.2); Glucose 138 mg/dl (74-100); Potassium 3.2 mmoL/L (3.5-5.1); Sodium 131 mmol/L (136-145)
[2021-05-13 07:17] LABS: MANUAL DIFFERENTIAL MANUAL DIFFERENTIAL (MANUAL DIFF)
[2021-05-13 07:32] VITALS: BP 130/72; PULSE 92; RESP 18; TEMP 36.5; O2SAT 98
[2021-05-13 08:00] VITALS: PULSE 90
--- NOTE | 2021-05-13 08:29 | HMH.DCSUM ---
General - General Admission date:: 05/12/21 Discharge date: 05/13/21 HPI HPI: 70-year-old white male with severe emphysema, heavy and long-term smoker who has recently been in the hospital for COPD exacerbations x2, has been home for about 4 days but had a fever and cough, came back to the ER last night, found to have mildly elevated BNP level, but was found to have cough, congestion, dyspnea, fever and a positive flu a serology. Hospital Course Hospital Course: Patient was admitted. Was noted to have mildly elevated troponin levels but this was felt to be from lung inflammation and not related to cardiac ischemia given his lack of symptoms and somewhat erratic lab reports. Patient did well over the next 36 hours, maintained his baseline O2 needs at 2 L, responded well to Tamiflu with no adverse reactions and this morning wished to go home. He looks good physically. Discharge plan will be to continue nebs, oxygen, his COPD medications, add Tamiflu and steroids for 3 days, we will see him in our offices in [place] on . Objective Vital signs: Temp Pulse Resp BP Pulse Ox 97.7 F 92 H 18 130/72 98 05/13/21 07:32 05/13/21 07:32 05/13/21 07:32 05/13/21 07:32 05/13/21 07:32 no acute distress, thin, chronically ill appearing - *Routine HEENT Exam Head: Present: normocephalic Eye: Present: EOMI, PERRL ENT: Present: mucous membranes moist - *Routine Neck Exam Present: supple - *Routine Respiratory Exam Present: rhonchi Comments: Good air movement with no wheezing - *Routine Cardiovascular Exam Present: RRR - *Routine Abdominal Exam Present: soft, normoactive bowel sounds. Absent: tenderness - *Routine Extremities Exam Absent: cyanosis, clubbing, edema - *Routine Skin Exam Present: warm. Absent: rash - Detailed Eye Exam Eyelids: Bilateral normal inspection Results Labs on day of discharge: Labs from last 24 hours 05/13/21 05/13/21 05/12/21 06:21 06:21 06:42 WBC 8.6 RBC 3.99 L Hgb 12.8 L Hct 39.4 L MCV 98.8 H MCH 32.2 H MCHC 32.6 RDW 13.4 Plt Count 188 MPV 8.3 Neut % (Auto) 89.4 H Lymph % (Auto) 6.6 L [place] % (Auto) 3.8 Eos % (Auto) 0.1 Baso % (Auto) 0.2 Neut # (Auto) 7.7 Lymph # (Auto) 0.6 L [place] # (Auto) 0.3 Eos # (Auto) 0.0 Baso # (Auto) 0.0 Total Counted 100 Neutrophils % (Manual) 95 H Lymphocytes % (Manual) 4 L Monocytes % (Manual) 1 L Platelet Estimate Normal RBC Morphology Normal Sodium 131 L Potassium 3.2 L Chloride 100 Carbon Dioxide 29 Anion Gap 5.2 BUN 11 D Creatinine 0.40 L Estimated Creat Clear 58 Estimated GFR 214 Est GFR ( Amer) 259 Glucose 138 H D Calcium 7.6 L Total Bilirubin 0.4 AST 51 ALT 42 Alkaline Phosphatase 69 Total Protein 5.0 L Albumin 2.7 L Globulin 2.3 Albumin/Globulin Ratio 1.2 DS: Diagnosis - Discharge Diagnosis (1) Influenza A Status: Acute (2) Acute exacerbation of chronic obstructive airways disease Status: Acute (3) Severe sepsis with acute organ dysfunction Status: Resolved Discharge Plan - Patient Discharge Instructions ACTIVITY: Continue current activity DIET: continue same diet Patient Instructions: Influenza, Chronic Obstructive Pulmonary Disease, DI for Heart Failure, DI for Acute Bronchitis, DI for Sepsis -- Adult - Follow up Plan Follow up with: Delmis Nielson APRN [Nurse Practitioner] - 05/16/21 Disposition: Home, Self-Care Condition at discharge:: Improved Home Medications: Home Medications Medication Instructions Recorded Confirmed Type Fluticasone/Umeclidin/Vilanter 1 dose IH DAILY 04/22/21 05/12/21 History [Trelegy Ellipta 100-62.5-25] Ascorbic Acid 500 mg PO DAILY 04/23/21 05/12/21 History Ipratropium/Albuterol Sulfate 3 ml IH QID 04/28/21 05/12/21 History [Duoneb 3mL neb] Ergocalciferol ([place]
[2021-05-13 08:33] LABS: Lymphocytes % 6 % (10-50); Monocytes % 2 % (2-9); Neutrophils % 92 % (42-76); Platelet Estimate Normal; Total Cells Counted 100
[2021-05-13 09:26] LABS: ABG PCO2 32.6 mmhg (35.0-45.0); ABG PH 7.45 mmol/L (7.35-7.45); ABG PO2 63.8 mmhg (80-100)
[2021-05-13 09:27] LABS: ABG HCO3 22.2 mmhg (22.0-26.0); ABG Oxygen Saturation 94 % (90-100); ABG TCO2 23.2 mmhg (23-27); Oxygen 3 LPM NC %
--- NOTE | 2021-05-13 09:52 | PC.NURSE ---
attempted to call family regarding discharge with no answer at this time.
--- NOTE | 2021-05-13 11:19 | HMH.PHAINT ---
DISCHARGE MEDICATION COUNSELING COMPLETED. DISCUSSED THE DEXAMETHASONE AND TAMIFLU SHORT-COURSE OF THERAPY. DISCUSSED HOW TO TAKE (WITH FOOD, TWICE DAILY) AND WHAT TO EXPECT. PATIENT ENDORSED NO QUESTIONS AT THIS TIME.
--- NOTE | 2021-05-14 11:56 | CARE MANAGER ---
Contacted patient's friend that he lives with, Samira who states he had a good night and is continuing to do well. He has his Oxygen and was able to get his prescriptions. Denies any questions or concerns. SIMBA Barfield
== END 2021-05-13 11:10 | disposition home or self-care (01) ==
LOC: ER 05-12 03:07 → 2ND 05-12 03:10
PROVIDERS: Admitting Provider Internal Medicine Adolescent Medicine; Emergency Provider Emergency Medicine; PCP Internal Medicine Adolescent Medicine; Visit Provider Internal Medicine Adolescent Medicine
DX: J10.1 Influenza due to other identified influenza virus with other respiratory manifestations (principal); J44.1 Chronic obstructive pulmonary disease with (acute) exacerbation; I11.0 Hypertensive heart disease with heart failure; I50.33 Acute on chronic diastolic (congestive) heart failure; Z20.822 Contact with and (suspected) exposure to COVID-19; Z79.899 Other long term (current) drug therapy
CPT/HCPCS: G0378; 36415; 71045; 80048; 80053; 81001; 82803; 83605; 83735; 83880; 84145; 84484; 85007; 85025; 85651; 86140; 93005; 94640; 96365; 96375; 99285; C9803; J1956; U0003; U0005

== ENCOUNTER → 2021-05-21 12:52 | Outpatient (CLI) | payer MEDICARE, MEDICAID, SELFPAY ==
[2021-05-21 13:16] LABS: Basophils # 0.4 K/mm3 (0-0.2); Basophils % 2.3 % (0.1-2.0); Eosinophils # 0.1 K/mm3 (0.0-0.4); Eosinophils % 0.5 % (0.1-12.0); Hematocrit 46.3 % (42.0-52.0); Hemoglobin 14.9 g/dL (14.1-18.0); Lymphocytes # 1.3 K/mm3 (0.7-4.5); Lymphocytes % 7.9 % (10-50); Mean Corpuscular HGB Conc 32.2 g/dL (31.8-35.4); Mean Corpuscular Hemoglobin 32.2 pg (27.0-31.2); Mean Corpuscular Volume 99.8 fl (80-94); Mean Platelet Volume 8.7 fl (7.4-10.4); Monocytes # 1.2 K/mm3 (0.1-1.0); Monocytes % 7.8 % (1.7-9.3); Neutrophils % 81.5 % (37.0-80.0); Platelet Count 306 K/mm3 (142-424); Red Blood Count 4.63 M/mm3 (4.60-6.20); Red Cell Distribution Width 14.2 % (11.5-17.5); White Blood Count 15.9 K/mm3 (4.8-10.8)
[2021-05-21 13:25] LABS: MANUAL DIFFERENTIAL MANUAL DIFFERENTIAL (MANUAL DIFF)
[2021-05-21 13:26] LABS: Alanine Aminotransferase 79 U/L (12-78); Albumin Level 3.5 g/dl (3.5-5.0); Albumin/Globulin Ratio 1.3 (1.1-1.8); Alkaline Phosphatase 95 U/L (38-126); Anion Gap 7.5 mEq/L (5-15); Aspartate Amino Transferase 51 U/L (17-59); Bilirubin,Total 0.9 mg/dl (0.2-1.3); Blood Urea Nitrogen 16 mg/dl (9-20); Calcium 8.5 mg/dl (8.4-10.2); Carbon Dioxide 29 mmol/L (22.0-30.0); Chloride 96 mmol/L (98-107); Estimated Glomerular Filt Rate 165 ml/min (>60); GFR (African American) 200 ML/MIN (>60); Globulin 2.7 g/dL (1.3-3.2); Glucose 73 mg/dl (74-100); Potassium 4.5 mmoL/L (3.5-5.1); Sodium 128 mmol/L (136-145); Total Protein,Serum 6.2 g/dl (6.3-8.2)
[2021-05-21 13:56] LABS: Lymphocytes % 9 % (10-50); Monocytes % 8 % (2-9); Neutrophils % 83 % (42-76); Nucleated Red Blood Cells 1; Platelet Estimate Normal; Total Cells Counted 100
== END ==
PROVIDERS: Visit Provider Nurse Practitioner Family
DX: R53.1 Weakness (principal)
CPT/HCPCS: 36415; 80053; 84443; 85007; 85025

== ENCOUNTER 2021-05-22 13:06 | Emergency (ER) | payer MEDICARE, MEDICAID, SELFPAY ==
[2021-05-22] VITALS (7 sets, daily range): BP systolic 101–135; BP diastolic 38–64; PULSE 60–97; RESP 16–22; TEMP 36.9–37; O2SAT 93–96; BMI 22.9
--- NOTE | 2021-05-22 13:18 | ECG_ITS ---
APPROVED REPORT Exam: Resting ECG HR:86 bpm ECG Measurements Heart Rate 86 AXES RI 175 P 64 QRSd 85 QRS 55 QT 360 T 167 QTc [address] DEVIATION AND MARKED T-WAVE ABNORMALITY, CONSIDER ANTEROLATERAL ISCHEMIA [-0.5+ mV T-WAVE IN I/aVL/V3-V6] ABNORMAL ECG UNCONFIRMED REPORT Electronically signed by : Marques Logan MD 05/23/2021 16:01:38
--- NOTE | 2021-05-22 13:24 | CT_ITS ---
FINAL REPORT CLINICAL HISTORY: confusion FINDINGS: Axial images of the head were obtained without contrast. Coronal reformatted images were also obtained. This study was performed with techniques to keep radiation doses as low as reasonably achievable (ALARA). Individualized dose reduction techniques using automated exposure control or adjustment of mA and/or kV according to the patient's size were employed. There is generalized age-appropriate atrophy. Periventricular low-attenuation areas are seen consistent with mild chronic ischemic changes. There is no evidence of intracranial hemorrhage or mass. There is an area of encephalomalacia in the left occipital lobe, likely represents prior infarct. There is no evidence of acute infarct. There is no evidence of shift of the midline structures. No skull abnormality is seen on the bone window images. IMPRESSION: Atrophy and mild periventricular chronic ischemic changes. No acute intracranial abnormality identified. Reviewed, Interpreted and Dictated by Alban Dailey III, MD Transcribed by Glendy Ponce Authenticated by Alban Dailey III, MD on 05/22/2021 02:20:18 PM [facility]
--- NOTE | 2021-05-22 13:24 | XR_ITS ---
FINAL REPORT CLINICAL HISTORY: confusion FINDINGS: SINGLE VIEW CHEST The heart is normal in size. The mediastinum is unremarkable. There is a right base opacity most worrisome for pneumonia. There is no pneumothorax. IMPRESSION: Findings worrisome for right base pneumonia. Reviewed, Interpreted and Dictated by Alban Dailey III, MD Transcribed by Glendy Ponce Authenticated by Alban Dailey III, MD on 05/22/2021 02:20:13 PM [facility]
--- NOTE | 2021-05-22 13:24 | PC.NURSE ---
calling [facility] at this time for records.
--- NOTE | 2021-05-22 13:27 | PC.NURSE ---
Notified rad of head CT
--- NOTE | 2021-05-22 13:27 | HMH.EDGENADL ---
ED Disposition Clinical Impression: Bilateral hand pain, Bilateral foot pain, Alcoholism, Hyponatremia, Pulmonary infiltrate Disposition: Home, Self-Care Condition on Discharge: Good Additional Instructions: Zithromax as prescribed. See Temi in Dr. Logan's office on Thursday. Prescriptions: Azithromycin [Zithromax 250mg tab] 250 mg PO DAILY #4 tab Transmission Status: Received by [facility] Referrals: Marques Logan MD [Primary Care Provider] - - Critical Care Critical Care Time: No Attestation: On 05/22/21, the high probability of a clinically significant, sudden or life threatening deterioration of the following system(s) required my full and direct attention, intervention and personal management. The time I documented below is in addition to time spent performing reported procedures but includes the following listed in this critical care notation. Medical Decision Making - Medical Records Medical records reviewed: Yes: I reviewed the patient's medical records. MR Comment: 6 prior troponins dating back to 04/28/2021 have all been elevated. Fax received from [facility] stating that no ER note is available from his visit patient was AMA , I think he left before seeing the doctor . Also noted that the patient had lab work done at this hospital yesterday. Results reviewed. - Jason Inquiry Pt receiving controlled substance: No Vital Signs: 05/22/21 13:07 05/22/21 14:00 05/22/21 14:30 Temperature 98.6 F Temperature Source Oral Pulse Rate 92 H 93 H Pulse Rate [Right] 60 Respiratory Rate 16 18 Blood Pressure 104/43 L 122/38 L Blood Pressure [Right Arm] 101/50 L Blood Pressure Mean 70 76 Blood Pressure Mean [Right Arm] 67 Blood Pressure Source [Right Arm] Automatic Cuff Blood Pressure Position [Right Arm] Sitting 02 Sat by Pulse Oximetry 95 96 95 Oxygen Delivery Method Room Air Oxygen Flow Rate (LPM) 05/22/21 15:00 05/22/21 16:00 05/22/21 16:30 Temperature Temperature Source Pulse Rate 88 92 H 97 H Pulse Rate [Right] Respiratory Rate 22 18 Blood Pressure 109/53 L 125/55 L 123/64 Blood Pressure [Right Arm] Blood Pressure Mean 72 84 Blood Pressure Mean [Right Arm] Blood Pressure Source [Right Arm] Blood Pressure Position [Right Arm] 02 Sat by Pulse Oximetry 95 93 L 94 L Oxygen Delivery Method Oxygen Flow Rate (LPM) 05/22/21 20:31 Temperature 98.5 F Temperature Source Oral Pulse Rate 96 H Pulse Rate [Right] Respiratory Rate 22 Blood Pressure 135/63 Blood Pressure [Right Arm] Blood Pressure Mean Blood Pressure Mean [Right Arm] Blood Pressure Source [Right Arm] Blood Pressure Position [Right Arm] 02 Sat by Pulse Oximetry Oxygen Delivery Method Nasal Cannula Oxygen Flow Rate (LPM) 2 - Lab Data Lab Results 05/22/21 13:30: WBC 14.3 H, RBC 4.27 L, Hgb 13.9 L, Hct 41.8 L, MCV 97.9 H, MCH 32.4 H, MCHC 33.1, RDW 14.3, Plt Count 268, MPV 8.7, Neut % (Auto) 85.1 H, Lymph % (Auto) 9.6 L, [place] % (Auto) 4.5, Eos % (Auto) 0.2, Baso % (Auto) 0.6, Neut # (Auto) 12.2 H, Lymph # (Auto) 1.4, [place] # (Auto) 0.7, Eos # (Auto) 0.0, Baso # (Auto) 0.1, Total Counted 100, Neutrophils % (Manual) 84 H, Lymphocytes % (Manual) 12, Monocytes % (Manual) 4, Platelet Estimate Normal, RBC Morphology Normal 05/22/21 13:30: Sodium 125 L, Potassium 4.4, Chloride 96 L, Carbon Dioxide 23, Anion Gap 10.4, BUN 12, Creatinine 0.50 L, Estimated Creat Clear 63, Estimated GFR 165, Est GFR ( Amer) 200, Glucose 72 L, Calcium 7.3 L, Total Bilirubin 1.2, AST 82 H D, ALT 65, Alkaline Phosphatase 75, Troponin I 0.07 H, Total Protein 5.8 L, Albumin 3.1 L D, Globulin 2.7, Albumin/Globulin Ratio 1.1 05/22/21 13:30: Troponin I 0.08 H, C-Reactive Protein 83.1 H 05/22/21 13:30: ESR 21 H 05/22/21 13:35: Urine Color Yellow, Urine Appearance Clear, Urine pH 6.0, Ur Specific [place] <= 1.005, Urine Protein Negative, Urine Glucose (UA) Negative, Urine Ketones Ne
--- NOTE | 2021-05-22 13:27 | PC.NURSE ---
notified rad of ct head order, spoke with sancho
--- NOTE | 2021-05-22 13:28 | PC.NURSE ---
spoke with Berenice at [facility], she is to be sending medical records at this time.
--- NOTE | 2021-05-22 13:36 | PC.NURSE ---
PT to CT
[2021-05-22 13:46] LABS: Chloride 96 mmol/L (98-107); Potassium 4.4 mmoL/L (3.5-5.1); Sodium 125 mmol/L (136-145)
[2021-05-22 13:49] LABS: Alanine Aminotransferase 65 U/L (12-78); Albumin Level 3.1 g/dl (3.5-5.0); Albumin/Globulin Ratio 1.1 (1.1-1.8); Alkaline Phosphatase 75 U/L (38-126); Anion Gap 10.4 mEq/L (5-15); Aspartate Amino Transferase 82 U/L (17-59); Bilirubin,Total 1.2 mg/dl (0.2-1.3); Blood Urea Nitrogen 12 mg/dl (9-20); Calcium 7.3 mg/dl (8.4-10.2); Carbon Dioxide 23 mmol/L (22.0-30.0); Creatinine Clearance Estimated 63 mL/min (50-200); Estimated Glomerular Filt Rate 165 ml/min (>60); GFR (African American) 200 ML/MIN (>60); Globulin 2.7 g/dL (1.3-3.2); Glucose 72 mg/dl (74-100); Total Protein,Serum 5.8 g/dl (6.3-8.2)
--- NOTE | 2021-05-22 13:50 | PC.NURSE ---
Back from CT
[2021-05-22 14:01] LABS: Troponin I 0.07 ng/ml (0.00-0.034)
[2021-05-22 14:02] LABS: Basophils # 0.1 K/mm3 (0-0.2); Basophils % 0.6 % (0.1-2.0); Eosinophils % 0.2 % (0.1-12.0); Hematocrit 41.8 % (42.0-52.0); Hemoglobin 13.9 g/dL (14.1-18.0); Lymphocytes # 1.4 K/mm3 (0.7-4.5); Lymphocytes % 9.6 % (10-50); Mean Corpuscular HGB Conc 33.1 g/dL (31.8-35.4); Mean Corpuscular Hemoglobin 32.4 pg (27.0-31.2); Mean Corpuscular Volume 97.9 fl (80-94); Mean Platelet Volume 8.7 fl (7.4-10.4); Monocytes # 0.7 K/mm3 (0.1-1.0); Monocytes % 4.5 % (1.7-9.3); Neutrophils # 12.2 K/mm3 (1.8-7.8); Neutrophils % 85.1 % (37.0-80.0); Platelet Count 268 K/mm3 (142-424); Red Blood Count 4.27 M/mm3 (4.60-6.20); Red Cell Distribution Width 14.3 % (11.5-17.5); White Blood Count 14.3 K/mm3 (4.8-10.8)
[2021-05-22 14:08] LABS: MANUAL DIFFERENTIAL MANUAL DIFFERENTIAL (MANUAL DIFF)
--- NOTE | 2021-05-22 14:20 | PC.NURSE ---
called and spoke with [facility] again and they will be sending records again.
[2021-05-22 14:25] LABS: Lymphocytes % 12 % (10-50); Monocytes % 4 % (2-9); Neutrophils % 84 % (42-76); Platelet Estimate Normal; RBC Morphology Normal; Total Cells Counted 100
[2021-05-22 14:38] LABS: Microscopic, Urine URINE MICROSCOPIC (MICROSCOPIC)
[2021-05-22 15:13] LABS: Coronavirus 19, PCR Not Detected (NotDetected); Influenza A, PCR Not Detected (NotDetected); Influenza B, PCR Not Detected (NotDetected)
[2021-05-22 15:19] LABS: C-Reactive Protein 83.1 mg/L (0-4)
[2021-05-22 15:21] LABS: Appearance,Urine CLEAR (Clear); Bilirubin,Urine Negative (Negative); Blood, Urine Negative (Negative); Color,Urine YELLOW (Yellow); Glucose,Urine (UA) Negative (Negative); Ketones,Urine Negative (Negative); Leukocyte Esterase,Urine Negative (Negative); Nitrate,Urine Negative (Negative); Protein,Urine Negative (Negative); Specific Gravity, Urine <= 1.005 (1.005-1.030); Urobilinogen,Urine 0.2 EU/dl (0.2)
[2021-05-22 15:22] LABS: Lactic Acid 1.8 mmol/L (0.7-2.1)
[2021-05-22 15:26] LABS: Erythrocyte Sedimentation Rate 21 mm/hr (0-20)
[2021-05-22 15:28] LABS: Troponin I 0.08 ng/ml (0.00-0.034)
--- NOTE | 2021-05-22 15:31 | XR_ITS ---
PROCEDURE INFORMATION: Exam: XR Chest Exam date and time: 05/22/2021 4:15 PM Age: 70 years old Clinical indication: Pain; Other: Hands and feet hurt TECHNIQUE: Imaging protocol: XR of the chest. Views: 2 views. COMPARISON: CR XR CHEST AP 05/22/2021 1:48 PM FINDINGS: Lungs: Persistent subsegmental atelectasis and mild airspace disease at the right lung base worrisome for pneumonia, though aeration appears improved compared with the earlier exam from 1:48 p.m.. Lungs appear slightly hyperinflated. Subsegmental atelectasis at the left base with no definite consolidation on the left. Pleural spaces: Very small layering pleural effusion on the right, likely trace pleural fluid on the left. No pneumothorax. Heart/Mediastinum: Cardiac silhouette appears within normal limits size. Vasculature: Calcified plaques in the aortic arch. Bones/joints: Osteopenia. [id number] multilevel thoracic vertebral body compression deformities indeterminate age, appearing more likely chronic than acute, with thoracic kyphosis.There are spinal degenerative changes, with multilevel disc narrrowing and spondylosis. IMPRESSION: 1. Persistent right lower lobe atelectasis and patchy consolidation consistent with pneumonia, improved aeration compared with the earlier exam from 1:48 p.m.. 2. Likely very small bilateral pleural effusions right greater than left. No pneumothorax. 3. Additional nonemergency and chronic findings as above.
--- NOTE | 2021-05-22 15:31 | PC.NURSE ---
Spoke with gege from [facility] she stated that CT scans had been read but weren't crossing over. She will be printing them out and bringing them to us.
[2021-05-22 16:00] LABS: RBC,Urine Occasional #/hpf (0-3); Squamous Epithelial Cell,Urine Occasional #/hpf (0-5)
[2021-05-22 16:01] LABS: Calcium Oxalate Crystals,Urine Trace /lpf
--- NOTE | 2021-05-22 16:35 | PC.NURSE ---
PT asked to be put on O2. Questioned pt about oxygen and he advised he does wear it at home. Pt had sats in the 90's and when he came back from [facility] they were 88%. Pt placed on NC @ 2lpm. Notified pt was on O2 now because he wore it at home sometimes and he requested it
[2021-05-22 17:48] LABS: Troponin I 0.07 ng/ml (0.00-0.034)
[2021-05-22 19:42] LABS: Troponin I 0.07 ng/ml (0.00-0.034)
== END 2021-05-22 20:36 | disposition home or self-care (01) ==
PROVIDERS: Emergency Provider Emergency Medicine; PCP Internal Medicine Adolescent Medicine
DX: M79.641 Pain in right hand (principal); M79.642 Pain in left hand; M79.671 Pain in right foot; M79.672 Pain in left foot; F10.20 Alcohol dependence, uncomplicated; E87.1 Hypo-osmolality and hyponatremia; J18.9 Pneumonia, unspecified organism; R91.8 Other nonspecific abnormal finding of lung field; J44.9 Chronic obstructive pulmonary disease, unspecified; E78.5 Hyperlipidemia, unspecified; I10 Essential (primary) hypertension; Z87.891 Personal history of nicotine dependence
CPT/HCPCS: 36415; 70450; 71045; 71046; 80053; 81001; 83605; 84484; 85007; 85025; 85651; 86140; 87040; 93005; 99284; C9803; U0003; U0005

== ENCOUNTER 2021-05-28 14:01 | Observation (INO) | payer MEDICARE, MEDICAID, SELFPAY ==
[2021-05-28] VITALS (12 sets, daily range): BP systolic 107–141; BP diastolic 48–62; PULSE 80–90; RESP 19–29; TEMP 36.3–37.1; O2SAT 88–98; BMI 19.1
--- NOTE | 2021-05-28 13:51 | ECG_ITS ---
APPROVED REPORT Exam: Resting ECG HR:86 bpm ECG Measurements Heart Rate 86 AXES VA 123 P 259 QRSd 89 QRS 73 QT 355 T 177 QTc [address] DEVIATION AND MARKED T-WAVE ABNORMALITY, CONSIDER ANTEROLATERAL ISCHEMIA [-0.5+ mV T-WAVE IN I/aVL/V3-V6] ABNORMAL ECG UNCONFIRMED REPORT Electronically signed by : Marques Logan MD 05/29/2021 17:34:27
--- NOTE | 2021-05-28 14:04 | XR_ITS ---
FINAL REPORT CLINICAL HISTORY: weakness, smoker COMPARISON: May 22, 2021 FINDINGS: The heart size is normal. The mediastinum is normal. The lungs are hyperinflated consistent with COPD. There are new bibasilar opacities, right greater than left, consistent with pneumonia. There is a new small right pleural effusion. There is no pneumothorax. There is no osseous abnormality. IMPRESSION: Bibasilar pneumonia, right greater than left. New small right pleural effusion. Reviewed, Interpreted and Dictated by Alban Dailey III, MD Transcribed by Matias aKte Authenticated by Alban Dailey III, MD on 05/28/2021 02:55:[address] [facility]
--- NOTE | 2021-05-28 14:20 | PC.NURSE ---
Patient given a urinal and was told to give us a urine specimen as soon as he could
[2021-05-28 14:23] LABS: Basophils % 0.5 % (0.1-2.0); Eosinophils % 0.2 % (0.1-12.0); Hematocrit 33.1 % (42.0-52.0); Lymphocytes # 1.1 K/mm3 (0.7-4.5); Lymphocytes % 13.9 % (10-50); Mean Corpuscular HGB Conc 33.1 g/dL (31.8-35.4); Mean Corpuscular Hemoglobin 33.2 pg (27.0-31.2); Mean Corpuscular Volume 100.3 fl (80-94); Mean Platelet Volume 7.9 fl (7.4-10.4); Monocytes # 0.5 K/mm3 (0.1-1.0); Monocytes % 5.6 % (1.7-9.3); Neutrophils # 6.5 K/mm3 (1.8-7.8); Neutrophils % 79.8 % (37.0-80.0); Platelet Count 278 K/mm3 (142-424); Red Cell Distribution Width 14.4 % (11.5-17.5); White Blood Count 8.1 K/mm3 (4.8-10.8)
[2021-05-28 14:25] LABS: Ethyl Alcohol < 10 mg/dl (0-10)
[2021-05-28 14:26] LABS: Alanine Aminotransferase 39 U/L (12-78); Albumin Level 2.6 g/dl (3.5-5.0); Alkaline Phosphatase 79 U/L (38-126); Anion Gap 4.2 mEq/L (5-15); Aspartate Amino Transferase 40 U/L (17-59); Blood Urea Nitrogen 12 mg/dl (9-20); Calcium 7.8 mg/dl (8.4-10.2); Carbon Dioxide 26 mmol/L (22.0-30.0); Chloride 101 mmol/L (98-107); Creatinine Clearance Estimated 62 mL/min (50-200); Estimated Glomerular Filt Rate 214 ml/min (>60); GFR (African American) 259 ML/MIN (>60); Globulin 2.6 g/dL (1.3-3.2); Glucose 87 mg/dl (74-100); Potassium 4.2 mmoL/L (3.5-5.1); Sodium 127 mmol/L (136-145); Total Protein,Serum 5.2 g/dl (6.3-8.2)
--- NOTE | 2021-05-28 14:30 | HMH.EDGENADL ---
ED Disposition Clinical Impression: Pleural effusion, Alcohol abuse Community acquired pneumonia Qualifiers: Laterality: unspecified laterality Qualified Code(s): J18.9 - Pneumonia, unspecified organism Disposition: Admitted as Observation Condition on Discharge: Fair - Critical Care Critical Care Time: No Attestation: On 05/28/21, the high probability of a clinically significant, sudden or life threatening deterioration of the following system(s) required my full and direct attention, intervention and personal management. The time I documented below is in addition to time spent performing reported procedures but includes the following listed in this critical care notation. Medical Decision Making - Medical Records Medical records reviewed: Yes: I reviewed the patient's medical records. MR Comment: Reviewed my emergency department note from 05/22/2021 visit. Patient was here for bilateral hand and foot pain. Reported noncompliance with his medications. Incidentally discovered to have a pulmonary infiltrate on chest x-ray, but denied symptoms from this. He was started on Zithromax. Discussed with Dr. Logan and follow-up arranged. Also noted to have an unremarkable CT angiogram of the chest on 04/29/2021. - Jason Inquiry Pt receiving controlled substance: No Vital Signs: 05/28/21 13:55 05/28/21 14:21 05/28/21 15:01 Temperature 98.4 F Temperature Source Oral Pulse Rate 82 84 Pulse Rate [Right Radial] 88 Respiratory Rate 24 27 H 29 H Blood Pressure 122/57 L 111/48 L Blood Pressure [Right Arm] 107/62 L Blood Pressure Mean [Right Arm] 77 Blood Pressure Source [Right Arm] Automatic Cuff Blood Pressure Position [Right Arm] Sitting 02 Sat by Pulse Oximetry 93 L 97 97 Oxygen Delivery Method Room Air Room Air Room Air 05/28/21 15:31 05/28/21 16:25 05/28/21 16:43 Temperature Temperature Source Pulse Rate 81 84 84 Pulse Rate [Right Radial] Respiratory Rate 22 26 H 19 Blood Pressure 122/55 L 130/62 123/60 Blood Pressure [Right Arm] Blood Pressure Mean [Right Arm] Blood Pressure Source [Right Arm] Blood Pressure Position [Right Arm] 02 Sat by Pulse Oximetry 98 97 97 Oxygen Delivery Method Room Air Room Air Room Air 05/28/21 17:17 Temperature Temperature Source Pulse Rate 85 Pulse Rate [Right Radial] Respiratory Rate Blood Pressure 118/53 L Blood Pressure [Right Arm] Blood Pressure Mean [Right Arm] Blood Pressure Source [Right Arm] Blood Pressure Position [Right Arm] 02 Sat by Pulse Oximetry 97 Oxygen Delivery Method Room Air - Lab Data Lab Results 05/28/21 14:08: WBC 8.1, RBC 3.30 L, Hgb 11.0 L, Hct 33.1 L, MCV 100.3 H, MCH 33.2 H, MCHC 33.1, RDW 14.4, Plt Count 278, MPV 7.9, Neut % (Auto) 79.8, Lymph % (Auto) 13.9, [place] % (Auto) 5.6, Eos % (Auto) 0.2, Baso % (Auto) 0.5, Neut # (Auto) 6.5, Lymph # (Auto) 1.1, [place] # (Auto) 0.5, Eos # (Auto) 0.0, Baso # (Auto) 0.0 05/28/21 14:08: Sodium 127 L, Potassium 4.2, Chloride 101, Carbon Dioxide 26, Anion Gap 4.2 L, BUN 12, Creatinine 0.40 L, Estimated Creat Clear 62, Estimated GFR 214, Est GFR ( Amer) 259, Glucose 87, Calcium 7.8 L, Total Bilirubin 1.0, AST 40, ALT 39, Alkaline Phosphatase 79, Troponin I < 0.01, Total Protein 5.2 L, Albumin 2.6 L, Globulin 2.6, Albumin/Globulin Ratio 1.0 L 05/28/21 14:08: Plasma/Serum Alcohol < 10 05/28/21 14:08: NT-Pro-B Natriuret Pep 865 H 05/28/21 14:53: SARS-CoV-2 (PCR) Not detected, Influenza A Untype (PCR) Not detected, Influenza Type B (PCR) Not detected 05/28/21 15:06: Urine Color Nydia, Urine Appearance Clear, Urine pH 7.0, Ur Specific [place] 1.010, Urine Protein Negative, Urine Glucose (UA) Trace, Urine Ketones Negative, Urine Blood Negative, Urine Nitrate Positive, Urine Bilirubin 1+ A, Urine Urobilinogen 4.0, Ur Leukocyte Esterase Negative, Urine RBC None, Urine WBC None, Ur Squamous Epith Cells None, Triple Phos Crystals Trace, Urine Bacteria 1+ 05/28/21 16:00: Lactate
[2021-05-28 14:39] LABS: Troponin I < 0.01 ng/ml (0.00-0.034)
--- NOTE | 2021-05-28 15:09 | PC.NURSE ---
UA sent to lab
[2021-05-28 15:12] LABS: Microscopic, Urine URINE MICROSCOPIC (MICROSCOPIC)
[2021-05-28 15:14] LABS: Coronavirus 19, PCR Not Detected (NotDetected); Influenza A, PCR Not Detected (NotDetected); Influenza B, PCR Not Detected (NotDetected)
[2021-05-28 15:14] LABS: Appearance,Urine CLEAR (Clear); Blood, Urine Negative (Negative); Glucose,Urine (UA) TRACE (Negative); Ketones,Urine Negative (Negative); Leukocyte Esterase,Urine Negative (Negative); Nitrate,Urine POSITIVE (Negative); Protein,Urine Negative (Negative)
[2021-05-28 15:25] LABS: Bilirubin,Urine 1+ (Negative); Color,Urine AMBER (Yellow)
[2021-05-28 15:37] LABS: Triple Phosphate Crystal,Urine Trace /lpf
[2021-05-28 15:38] LABS: Bacteria,Urine 1+ /lpf
--- NOTE | 2021-05-28 15:41 | PC.NURSE ---
ED MD at
--- NOTE | 2021-05-28 15:53 | PC.NURSE ---
Dr. Doreen lopez for ED MD
[2021-05-28 16:16] LABS: Lactic Acid 1.1 mmol/L (0.7-2.1)
--- NOTE | 2021-05-28 16:57 | PC.NURSE ---
Shoe Treer for fady paged for ED MD
--- NOTE | 2021-05-28 17:00 | PC.NURSE ---
Dr. Francisco on phone with ED MD
--- NOTE | 2021-05-28 17:10 | INFXCTL.NOTE ---
notified household refrigerator mechanic of admission
--- NOTE | 2021-05-28 17:11 | PC.NURSE ---
notified lab staff of new orders on pt.
[2021-05-28 17:30] LABS: NT Pro Brain Natriuretic Pep. 865 pg/mL (0-125)
[2021-05-28 17:44] LABS: Troponin I < 0.01 ng/ml (0.00-0.034)
--- NOTE | 2021-05-28 18:04 | PC.NURSE ---
Updated pt on POC. No new needs at this time
--- NOTE | 2021-05-28 19:15 | PC.NURSE ---
pt arrived to floor via wheelchair at this time
[2021-05-28 20:00] LABS: Amphetamine/Metha Screen,Urine Negative ng/ml (<1000)
[2021-05-28 20:01] LABS: Barbiturates Screen,Urine Negative ng/ml (<200); Benzodiazepines Screen,Urine Negative ng/ml (<200)
[2021-05-28 20:02] LABS: Cannabinoid Screen,Urine Negative ng/ml (<50)
[2021-05-28 20:03] LABS: Cocaine Screen,Urine Negative ng/ml (<300); Methadone Screen,Urine Negative ng/ml (<300)
[2021-05-28 20:04] LABS: Opiate Screen,Urine Negative ng/ml (<300)
[2021-05-28 20:05] LABS: Phencyclidine Screen,Urine Negative ng/ml (<25)
[2021-05-28 21:17] LABS: INR 1.16 (0.9-1.1)
[2021-05-28 21:19] LABS: Activated Partial Thrombo Time 29.2 seconds (22.8-30.6); Magnesium 1.7 mg/dl (1.6-2.3); Phosphorous 3.5 mg/dl (2.5-4.5)
[2021-05-28 21:29] LABS: Troponin I 0.01 ng/ml (0.00-0.034)
[2021-05-29] VITALS (7 sets, daily range): BP systolic 112–131; BP diastolic 42–69; PULSE 65–90; RESP 14–22; TEMP 36.5–37.2; O2SAT 92–95; BMI 19.1
--- NOTE | 2021-05-29 03:49 | PC.NURSE ---
PT HAS RESTED WELL THIS SHIFT WITH NO COMPLAINTS. VS REMAIN STABLE CHARTED. NO ACUTE CHANGES FROM PREVIOUS ASSESSMENT. WILL CONTINUE TO MONITOR.
--- NOTE | 2021-05-29 07:20 | P.CONPHA_ITS ---
[facility] Pharmacy VTE Monitoring - Patient Demographics Admission date: 05/28/21 Report Date: 05/29/21 Time: 07:20 Allergies/Adverse Reactions: Patient Allergies No Known Allergies Allergy (Verified 05/09/21 13:12) Height: 1.75 m Weight: 58.74 kg Patient Problems: Current Active Problems Alcohol abuse (Acute) Community acquired pneumonia (Acute) Pleural effusion (Acute) - VTE Risk Labs: VTE Related Lab Results Hgb 11.0 g/dL (14.1-18.0) L 05/28/21 14:08 Hct 33.1 % (42.0-52.0) L 05/28/21 14:08 Plt Count 278 K/mm3 (142-424) 05/28/21 14:08 PT 13.0 seconds (10.1-12.5) H 05/28/21 20:41 INR 1.16 (0.9-1.1) H 05/28/21 20:41 APTT 29.2 seconds (22.8-30.6) 05/28/21 20:41 BUN 12 mg/dl (9-20) 05/28/21 14:08 Creatinine 0.40 mg/dl (0.66-1.25) L 05/28/21 14:08 Estimated Creat Clear 62 mL/min (50-200) 05/28/21 14:08 VTE Score: 5 VTE Risk Level: Low Risk - Prophylaxis VTE Prophylaxis Ordered?: Yes Types of VTE Prophylaxis: TEDS Knee High Location of Applied Device: Bilateral Lower Extremeties
[2021-05-29 08:25] LABS: Chloride 101 mmol/L (98-107); Potassium 3.6 mmoL/L (3.5-5.1); Sodium 127 mmol/L (136-145)
[2021-05-29 08:28] LABS: Anion Gap 4.6 mEq/L (5-15); Blood Urea Nitrogen 10 mg/dl (9-20); Carbon Dioxide 25 mmol/L (22.0-30.0); Creatinine Clearance Estimated 59 mL/min (50-200); Estimated Glomerular Filt Rate 214 ml/min (>60); GFR (African American) 259 ML/MIN (>60); Glucose 107 mg/dl (74-100)
[2021-05-29 08:45] LABS: Basophils # 0.1 K/mm3 (0-0.2); Basophils % 1.2 % (0.1-2.0); Eosinophils % 0.5 % (0.1-12.0); Hemoglobin 10.9 g/dL (14.1-18.0); Lymphocytes # 0.8 K/mm3 (0.7-4.5); Lymphocytes % 12.7 % (10-50); Mean Corpuscular HGB Conc 32.9 g/dL (31.8-35.4); Mean Corpuscular Hemoglobin 32.8 pg (27.0-31.2); Mean Corpuscular Volume 99.6 fl (80-94); Mean Platelet Volume 8.1 fl (7.4-10.4); Monocytes # 0.4 K/mm3 (0.1-1.0); Monocytes % 7.2 % (1.7-9.3); Neutrophils # 4.7 K/mm3 (1.8-7.8); Neutrophils % 78.5 % (37.0-80.0); Platelet Count 300 K/mm3 (142-424); Red Blood Count 3.31 M/mm3 (4.60-6.20); Red Cell Distribution Width 14.3 % (11.5-17.5)
--- NOTE | 2021-05-29 08:51 | HMH.HP ---
*Admission Date: 05/28/21 *Chief complaint: Poison in my pee *History of present illness: 70-year-old white male alcoholic with an extremely checkered medical history, who presented to the emergency department again yesterday with a chief complaint of poison in my pee by which she means a red discoloration. He has had no dysuria or fever. He has chronic shortness of air. His course over the past week has been 1 of presentation to our office a couple of times with chief complaint of weakness and fatigue. We actually arranged for him to go to [facility] waiting for admission for alcohol detox, but he left AMA from the ER there last week. He was in our office yesterday and it was recommended that he seek inpatient care for failed outpatient therapy for pneumonia but he stated I hate [facility] and I am going to [facility]. Apparently when he went to [facility] they told him they had no beds at the hospital and he returned to our emergency department with the above chief complaint of poison in his urinary tract. In the ER he was found to have hyponatremia-which is his baseline, also found to have mild pleural effusions and infiltrates. Given his severe lack of compliance with medicine, follow-up and instructions he was admitted for further evaluation, medication adjustment and possible placement in a rehab facility. He notes that he has been off alcohol for 3 weeks-this is somewhat less than believable in my opinion. [facility] History I have reviewed the patient's past medical history: Yes Medical History: Reports:: Congestive Heart Failure, Chronic Obstructive Pulmonary Disease (COPD), Congenital Heart Disease, Hyperlipidemia, Hypertension Denies:: Diabetes Mellitus Type 1, Diabetes Mellitus Type 2 *Have you ever received a pneumonia vaccine?: Yes *Have you received a flu vaccine this season?: Yes Fractures: Yes - *Social History Last grade of school completed: 5th or 6th Smoking Status: Former smoker Tobacco Type: cigarettes # Packs/Day (cigarettes): 1 Smoking End Date: 03/30/2021 Alcohol Intake: current Alcohol Intake Frequency:: 3 or more drinks per day *Occupational Status:: retired Household Members: friend(s) *Travel in the last 8 weeks: None Family Hx:: No significant family history Review of Systems - Review of Systems Review of systems:: pertinent systems reviewed and negative unless documented below - *Neurologic Denies headache(s), Denies numbness, Denies weakness Meds Allergies Allergy/AdvReac Type Severity Reaction Status Date / Time No Known Allergies Allergy Verified 05/09/21 13:12 Exam Vital signs and Labs for Last 24 Hours: Temp Pulse Resp BP Pulse Ox 97.9 F 78 18 115/59 L 94 L 05/29/21 05:10 05/29/21 05:10 05/29/21 05:10 05/29/21 05:10 05/29/21 05:10 Laboratory Results - last 24 hr 05/28/21 14:08: WBC 8.1, RBC 3.30 L, Hgb 11.0 L, Hct 33.1 L, MCV 100.3 H, MCH 33.2 H, MCHC 33.1, RDW 14.4, Plt Count 278, MPV 7.9, Neut % (Auto) 79.8, Lymph % (Auto) 13.9, [place] % (Auto) 5.6, Eos % (Auto) 0.2, Baso % (Auto) 0.5, Neut # (Auto) 6.5, Lymph # (Auto) 1.1, [place] # (Auto) 0.5, Eos # (Auto) 0.0, Baso # (Auto) 0.0 05/28/21 14:08: Sodium 127 L, Potassium 4.2, Chloride 101, Carbon Dioxide 26, Anion Gap 4.2 L, BUN 12, Creatinine 0.40 L, Estimated Creat Clear 62, Estimated GFR 214, Est GFR ( Amer) 259, Glucose 87, Calcium 7.8 L, Total Bilirubin 1.0, AST 40, ALT 39, Alkaline Phosphatase 79, Troponin I < 0.01, Total Protein 5.2 L, Albumin 2.6 L, Globulin 2.6, Albumin/Globulin Ratio 1.0 L 05/28/21 14:08: Plasma/Serum Alcohol < 10 05/28/21 14:08: NT-Pro-B Natriuret Pep 865 H 05/28/21 14:53: SARS-CoV-2 (PCR) Not detected, Influenza A Untype (PCR) Not detected, Influenza Type B (PCR) Not detected 05/28/21 15:06: Urine Color Nydia, Urine Appearance Clear, Urine pH 7.0, Ur Specific [place] 1.010, Urine Protein Negative, Urine Glucose (UA) Trace, Urine Ketones Neg
--- NOTE | 2021-05-29 09:26 | HMH.OTEV ---
OT Inpatient Evaluation Rehab OT IP Evaluation Start: 05/29/21 08:24 Freq: ONCE Status: Complete Protocol: Document 05/29/21 09:21 ALEX (Rec: 05/29/21 09:26 ALEX [id number]) Rehab OT IP Assessment Subjective History 70-year-old white male alcoholic with an extremely checkered medical history, who presented to the emergency department again yesterday with a chief complaint of poison in my pee by which she means a red discoloration. He has had no dysuria or fever . He has chronic shortness of air. His course over the past week has been 1 of presentation to our office a couple of times with chief complaint of weakness and fatigue. We actually arranged for him to go to local hospital with [facility] waiting for admission for alcohol detox, but he left AMA from the ER there last week. He was in our office yesterday and it was recommended that he seek inpatient care for failed outpatient therapy for pneumonia but he stated I hate [facility] and I am going to [facility]. Apparently when he went to [facility] they told him they had no beds at the hospital and he returned to our emergency department with the above chief complaint of poison in his urinary tract. In the ER he was found to have hyponatremia-which is his baseline, also found to have mild pleural effusions and infiltrates. Given his severe lack of compliance with medicine, follow-up and instructions he was admitted for further evaluation, medicat
--- NOTE | 2021-05-29 10:16 | HMH.PTEV ---
Physical Therapy Evaluation Rehab PT IP Evaluation Start: 05/29/21 08:24 Freq: ONCE Status: Active Protocol: Document 05/29/21 09:49 DANILO (Rec: 05/29/21 10:16 AMANDAPETERSON [id number]) Subjective/History History History 70-year-old white male alcoholic with an extremely checkered medical history, who presented to the emergency department again yesterday with a chief complaint of poison in my pee by which she means a red discoloration. He has had no dysuria or fever . He has chronic shortness of air. His course over the past week has been 1 of presentation to our office a couple of times with chief complaint of weakness and fatigue. We actually arranged for him to go to local [facility] waiting for admission for alcohol detox, but he left AMA from the ER there last week. He was in our office yesterday and it was recommended that he seek inpatient care for failed outpatient therapy for pneumonia but he stated I hate [facility] and I am going to [facility]. Apparently when he went to [facility] they told him they had no beds at the hospital and he returned to our emergency department with the above chief complaint of poison in his urinary tract. In the ER he was found to have hyponatremia-which is his baseline, also found to have mild pleural effusions and infiltrates. Given his severe lack of compliance with medicine, follow-up and instructions he was admitted for further evaluation, medication adjustment and
--- NOTE | 2021-05-29 14:49 | PC.NURSE ---
spoke with patient about care. no concerns about meds, or plan of care at this time. resting in bed. only complaint was some burning at iv site from medication infusing. decreased rate to ease the site.
[2021-05-30] VITALS: BP 116/59; PULSE 78; PULSE 80; RESP 18; TEMP 36.9; O2SAT 92
[2021-05-30 04:00] VITALS: BP 113/65; PULSE 70; PULSE 82; RESP 18; TEMP 36.9; O2SAT 92
[2021-05-30 05:00] VITALS: BMI 19.8
[2021-05-30 07:26] LABS: Basophils % 0.7 % (0.1-2.0); Eosinophils % 0.4 % (0.1-12.0); Hematocrit 32.6 % (42.0-52.0); Hemoglobin 10.9 g/dL (14.1-18.0); Lymphocytes # 1.2 K/mm3 (0.7-4.5); Lymphocytes % 21.6 % (10-50); Mean Corpuscular HGB Conc 33.3 g/dL (31.8-35.4); Mean Corpuscular Hemoglobin 32.9 pg (27.0-31.2); Mean Corpuscular Volume 98.6 fl (80-94); Mean Platelet Volume 7.7 fl (7.4-10.4); Monocytes # 0.4 K/mm3 (0.1-1.0); Monocytes % 6.8 % (1.7-9.3); Neutrophils # 3.9 K/mm3 (1.8-7.8); Neutrophils % 70.4 % (37.0-80.0); Platelet Count 336 K/mm3 (142-424); Red Blood Count 3.31 M/mm3 (4.60-6.20); Red Cell Distribution Width 14.2 % (11.5-17.5); White Blood Count 5.5 K/mm3 (4.8-10.8)
--- NOTE | 2021-05-30 07:57 | HMH.DCSUM ---
General - General Admission date:: 05/28/21 Discharge date: 05/30/21 HPI HPI: 70-year-old white male alcoholic with an extremely checkered medical history, who presented to the emergency department again yesterday with a chief complaint of poison in my pee by which she means a red discoloration. He has had no dysuria or fever. He has chronic shortness of air. His course over the past week has been 1 of presentation to our office a couple of times with chief complaint of weakness and fatigue. We actually arranged for him to go to [facility] waiting for admission for alcohol detox, but he left AMA from the ER there last week. He was in our office yesterday and it was recommended that he seek inpatient care for failed outpatient therapy for pneumonia but he stated I hate [facility] and I am going to [facility]. Apparently when he went to [facility] they told him they had no beds at the hospital and he returned to our emergency department with the above chief complaint of poison in his urinary tract. In the ER he was found to have hyponatremia-which is his baseline, also found to have mild pleural effusions and infiltrates. Given his severe lack of compliance with medicine, follow-up and instructions he was admitted for further evaluation, medication adjustment and possible placement in a rehab facility. He notes that he has been off alcohol for 3 weeks-this is somewhat less than believable in my opinion. Hospital Course Hospital Course: Patient was admitted. He was found to be without oxygen requirement, his chest x-ray showed evidence of pleural effusion and his previous echocardiograms had shown systolic CHF. He was continued on his antibiotics from home. He was given Lasix and tolerated this well with good diuresis. This morning he is back to his baseline. PT and OT felt that he was safe to go home without any interventions as he did all of his ADLs. Patient we discharged home on Lasix, newly prescribed Entresto for his CHF with ejection fraction diminished and he will be followed up in our office next week. Objective Vital signs: Temp Pulse Resp BP Pulse Ox 98.4 F 82 18 113/65 92 L 05/30/21 04:00 05/30/21 04:00 05/30/21 04:00 05/30/21 04:00 05/30/21 04:00 no acute distress - *Routine HEENT Exam Head: Present: normocephalic Eye: Present: EOMI, PERRL ENT: Present: mucous membranes moist - *Routine Neck Exam Present: supple - *Routine Respiratory Exam Present: rhonchi - *Routine Cardiovascular Exam Present: RRR, murmur - *Routine Abdominal Exam Present: soft, normoactive bowel sounds. Absent: tenderness - *Routine Extremities Exam Absent: cyanosis, clubbing, edema - *Routine Skin Exam Present: warm. Absent: rash - Detailed Eye Exam Eyelids: Bilateral normal inspection Results Labs on day of discharge: Labs from last 24 hours 05/30/21 05/29/21 05/29/21 07:00 08:02 08:02 WBC 5.5 6.0 D RBC 3.31 L 3.31 L Hgb 10.9 L 10.9 L Hct 32.6 L 33.0 L MCV 98.6 H 99.6 H MCH 32.9 H 32.8 H MCHC 33.3 32.9 RDW 14.2 14.3 Plt Count 336 300 MPV 7.7 8.1 Neut % (Auto) 70.4 78.5 Lymph % (Auto) 21.6 12.7 [place] % (Auto) 6.8 7.2 Eos % (Auto) 0.4 0.5 Baso % (Auto) 0.7 1.2 Neut # (Auto) 3.9 4.7 Lymph # (Auto) 1.2 0.8 [place] # (Auto) 0.4 0.4 Eos # (Auto) 0.0 0.0 Baso # (Auto) 0.0 0.1 Sodium 127 L Potassium 3.6 Chloride 101 Carbon Dioxide 25 Anion Gap 4.6 L BUN 10 Creatinine 0.40 L Estimated Creat Clear 59 Estimated GFR 214 Est GFR ( Amer) 259 Glucose 107 H D Calcium 7.0 L Preliminary micro results at discharge 05/28/21 15:06 Urine Culture - Preliminary Urine,Clean Catch NO GROWTH AFTER 24 HOURS DS: Diagnosis - Discharge Diagnosis (1) Systolic CHF, acute on chronic Status: Acute (2) Alcohol abus
[2021-05-30 08:00] VITALS: BP 114/43; PULSE 92; RESP 18; TEMP 36.6; O2SAT 93
[2021-05-30 08:03] LABS: Chloride 103 mmol/L (98-107); Potassium 3.3 mmoL/L (3.5-5.1); Sodium 130 mmol/L (136-145)
[2021-05-30 08:06] LABS: Anion Gap 6.3 mEq/L (5-15); Blood Urea Nitrogen 6 mg/dl (9-20); Carbon Dioxide 24 mmol/L (22.0-30.0); Creatinine Clearance Estimated 61 mL/min (50-200); Estimated Glomerular Filt Rate 214 ml/min (>60); GFR (African American) 259 ML/MIN (>60)
[2021-05-30 08:07] LABS: Glucose 75 mg/dl (74-100)
--- NOTE | 2021-05-30 09:07 | HMH.PHAINT ---
I spoke with the patient about his medication list. Went over the new medications that were being sent in for him. Also reviewed the medications he was to continue on at home. When we spoke, he did not have any questions or concerns. The patient was provided a copy of the medication list.
--- NOTE | 2021-05-31 11:10 | SW/DCPLANNER ---
Patient information has been faxed to [facility] to resume home health services.
--- NOTE | 2021-05-31 15:04 | CARE MANAGER ---
Contacted patient's niece, Gilda, who's phone number is listed as contact. She states patient is doing better and she believes he has picked up his new medications, but will call back if she gets to see him and he was unable to do so. SIMBA Barfield
== END 2021-05-30 10:22 | disposition home or self-care (01) ==
LOC: ER 17:15 → 2ND 17:27
PROVIDERS: Admitting Provider Family Medicine; Emergency Provider Emergency Medicine; PCP Internal Medicine Adolescent Medicine; Visit Provider Internal Medicine Adolescent Medicine
DX: J18.9 Pneumonia, unspecified organism (principal); I11.0 Hypertensive heart disease with heart failure; I50.23 Acute on chronic systolic (congestive) heart failure; J44.9 Chronic obstructive pulmonary disease, unspecified; F10.10 Alcohol abuse, uncomplicated; Z79.899 Other long term (current) drug therapy; Z20.822 Contact with and (suspected) exposure to COVID-19
CPT/HCPCS: G0378; 36415; 71045; 80048; 80053; 80305; 81001; 83605; 83735; 83880; 84100; 84484; 85025; 85610; 85730; 87040; 87086; 93005; 96365; 96367; 97161; 97165; 99285; C9803; J0456; J0696; U0003; U0005

== ENCOUNTER 2021-09-08 21:05 | Inpatient (IN) | payer MEDICARE, MEDICAID, SELFPAY ==
[2021-09-08 21:04] VITALS: BP 126/65; PULSE 112; RESP 23; TEMP 37; O2SAT 96; BMI 19.8
[2021-09-08 21:05] VITALS: BMI 19.8
--- NOTE | 2021-09-08 21:07 | XR_ITS ---
PROCEDURE INFORMATION: Exam: XR Chest Exam date and time: 09/08/2021 10:17 PM Age: 71 years old Clinical indication: Shortness of breath; Additional info: Chest pain TECHNIQUE: Imaging protocol: Radiologic exam of the chest. Views: 2 views. COMPARISON: CR XR CHEST PORTABLE 05/28/2021 2:07 PM FINDINGS: Lungs: In correlation with CT images, the left lower lobe is collapsed and likely infected. Stigmata of old granulomatous disease. Pleural spaces: Small left pleural effusion. Heart/Mediastinum: Unremarkable. Bones/joints: Multiple chronic appearing thoracic spine fractures. IMPRESSION: 1. In correlation with CT images, the left lower lobe is collapsed and likely infected. 2. Small left pleural effusion.
--- NOTE | 2021-09-08 21:07 | ECG_ITS ---
APPROVED REPORT Exam: Resting ECG HR:103 bpm ECG Measurements Heart Rate 103 AXES FL 170 P 89 QRSd 94 QRS 80 QT 337 T 77 QTc 397 Conclusion SINUS TACHYCARDIA ABNORMAL RHYTHM ECG UNCONFIRMED REPORT Electronically signed by : Marques Logan MD 09/09/2021 13:46:53
--- NOTE | 2021-09-08 21:14 | PC.NURSE ---
RT at to obtain ABG
[2021-09-08 21:17] LABS: Coronavirus 19, PCR Not Detected (NotDetected); Influenza A, PCR Not Detected (NotDetected); Influenza B, PCR Not Detected (NotDetected)
[2021-09-08 21:23] LABS: ABG Base Excess -1.9 mmol/L (-2.4-2.3); ABG HCO3 21.8 mmhg (22.0-26.0); ABG Oxygen Saturation 95 % (90-100); ABG PCO2 31.2 mmhg (35.0-45.0); ABG PH 7.46 mmol/L (7.35-7.45); ABG PO2 71.1 mmhg (80-100); ABG TCO2 22.8 mmhg (23-27); Allen's Test y; Oxygen 3 %; Source rr
--- NOTE | 2021-09-08 21:31 | HMH.EDSOB ---
ED Disposition Clinical Impression: Acute exacerbation of chronic obstructive airways disease, Tobacco use disorder, Severe sepsis with acute organ dysfunction, Bronchial obstruction Disposition: Admitted As Inpatient Condition on Discharge: Serious - Critical Care Critical Care Time: No Attestation: On 09/08/21, the high probability of a clinically significant, sudden or life threatening deterioration of the following system(s) required my full and direct attention, intervention and personal management. The time I documented below is in addition to time spent performing reported procedures but includes the following listed in this critical care notation. Medical Decision Making - Medical Records Medical records reviewed: Yes: I reviewed the patient's medical records. - Jason Inquiry Pt receiving controlled substance: No Vital Signs: 09/08/21 21:04 09/08/21 21:33 09/08/21 21:34 Temperature 98.6 F Temperature Source Oral Pulse Rate 81 83 Pulse Rate [Left Radial] 112 H Respiratory Rate 23 Blood Pressure Blood Pressure [Right Arm] 126/65 Blood Pressure Mean [Right Arm] 85 Blood Pressure Source [Right Arm] Automatic Cuff Blood Pressure Position [Right Arm] Sitting 02 Sat by Pulse Oximetry 96 Oxygen Delivery Method Nasal Cannula Oxygen Flow Rate (LPM) 2 09/08/21 22:01 09/08/21 23:00 09/08/21 23:30 Temperature Temperature Source Pulse Rate 108 H 102 H 98 H Pulse Rate [Left Radial] Respiratory Rate Blood Pressure 140/64 154/63 H 154/53 H Blood Pressure [Right Arm] Blood Pressure Mean [Right Arm] Blood Pressure Source [Right Arm] Blood Pressure Position [Right Arm] 02 Sat by Pulse Oximetry 96 97 96 Oxygen Delivery Method Nasal Cannula Room Air Room Air Oxygen Flow Rate (LPM) 2 09/09/21 00:00 09/09/21 00:30 Temperature Temperature Source Pulse Rate 98 H 94 H Pulse Rate [Left Radial] Respiratory Rate Blood Pressure 157/64 H 143/65 H Blood Pressure [Right Arm] Blood Pressure Mean [Right Arm] Blood Pressure Source [Right Arm] Blood Pressure Position [Right Arm] 02 Sat by Pulse Oximetry 96 93 L Oxygen Delivery Method Room Air Room Air Oxygen Flow Rate (LPM) - Lab Data Lab results reviewed: Yes: I reviewed the patient's lab results. Lab Results 09/08/21 21:06: Specimen Source rr, O2 % 3, ABG pH 7.46 H, ABG pCO2 31.2 L, ABG pO2 71.1 L, ABG HCO3 21.8 L, ABG Total CO2 22.8 L, ABG O2 Saturation 95, ABG Base Excess -1.9, Joseph Test y 09/08/21 21:13: SARS-CoV-2 (PCR) Not detected, Influenza A Untype (PCR) Not detected, Influenza Type B (PCR) Not detected 09/08/21 21:28: WBC 10.6, RBC 4.26 L, Hgb 12.5 L, Hct 37.8 L, MCV 88.8, MCH 29.3, MCHC 33.0, RDW 12.8, Plt Count 421, MPV 7.0 L, Neut % (Auto) 71.5, Lymph % (Auto) 14.5, [place] % (Auto) 9.9 H, Eos % (Auto) 3.4, Baso % (Auto) 0.8, Neut # (Auto) 7.6, Lymph # (Auto) 1.5, [place] # (Auto) 1.1 H, Eos # (Auto) 0.4, Baso # (Auto) 0.1, ESR 25 H 09/08/21 21:28: Sodium 131 L, Potassium 3.4 L, Chloride 99, Carbon Dioxide 26, Anion Gap 9.4, BUN 9, Creatinine 0.30 L, Estimated Creat Clear 64, Estimated GFR 297, Est GFR ( Amer) 360, Glucose 107 H, Calcium 8.5, Total Bilirubin 0.6, Direct Bilirubin 0.3, Conjugated Bilirubin 0.0, Indirect Bilirubin 0.3, Unconjugated Bilirubin 0.2, AST 39, ALT 20, Alkaline Phosphatase 95, Troponin I < 0.01, C-Reactive Protein 144.8 H, Total Protein 6.4, Albumin 3.0 L 09/08/21 21:28: Lactate 2.1 09/08/21 21:28: NT-Pro-B Natriuret Pep 304 H 09/08/21 23:09: Urine Color Yellow, Urine Appearance Clear, Urine pH 6.5, Ur Specific [place] 1.010, Urine Protein Negative, Urine Glucose (UA) Negative, Urine Ketones Trace, Urine Blood Trace-i, Urine Nitrate Negative, Urine Bilirubin Negative, Urine Urobilinogen 0.2, Ur Leukocyte Esterase Negative, Urine RBC 3-5, Amorphous Sediment Trace 09/09/21 00:15: Troponin I < 0.01 09/09/21 00:15: Plasma/Serum Alcohol < 10 09/09/21 00:15: Lactate 1.2
--- NOTE | 2021-09-08 21:32 | CT_ITS ---
PROCEDURE INFORMATION: Exam: CTA Chest With Contrast Exam date and time: 09/08/2021 10:26 PM Age: 71 years old Clinical indication: Shortness of breath; Additional info: Shortness of air TECHNIQUE: Imaging protocol: Computed tomographic angiography of the chest with contrast. 3D rendering (Not supervised by radiologist): MIP and/or 3D reconstructed images were created by the technologist. Radiation optimization: All CT scans at this facility use at least one of these dose optimization techniques: automated exposure control; mA and/or kV adjustment per patient size (includes targeted exams where dose is matched to clinical indication); or iterative reconstruction. Contrast material: ISOVUE 370; Contrast volume: 70 ml; Contrast route: INTRAVENOUS (IV); COMPARISON: CT ANGIO CHEST PE PROTOCOL 04/29/2021 3:12 PM FINDINGS: Pulmonary arteries: No pulmonary emboli. Aorta: The aorta demonstrates severe atherosclerotic disease. Renal arteries: There are 2 left renal arteries. Lungs: The left lower lobe is collapsed. The left lower lobe bronchus is occluded at its origin. There is low enhancement of the left lower lobe parenchyma. Mild scarring and atelectasis in the lower lungs. Multiple nonspecific pulmonary nodules. For follow-up purposes, examples include: 4 mm right middle lobe nodule image 96 series 5 and 2 mm right lower lobe nodule image 45 series 5. Moderate centrilobular emphysema. Pleural spaces: Small left pleural effusion with pleural thickening and enhancement. Heart: Coronary artery calcifications. Lymph nodes: Unremarkable. No enlarged lymph nodes. Liver: Hepatic steatosis. Kidneys and ureters: Low attenuation renal lesions measuring up to 11 mm in diameter are incompletely characterized, but are likely cysts. No followup imaging is warranted. Bones/joints: Multiple chronic appearing thoracic spine fractures. Soft tissues: Unremarkable. Other findings: Stigmata of old granulomatous disease. IMPRESSION: 1. No pulmonary emboli. 2. Findings most likely represent postobstructive left lower lobe pneumonia. The left lower lobe bronchus could be occluded due to malignancy or mucous plugging. 3. Small left pleural effusion with pleural thickening and enhancement. This is worrisome for malignant effusion versus empyema. Consider image guided fluid sampling. 4. Hepatic steatosis. 5. THIS REPORT CONTAINS FINDINGS THAT MAY BE CRITICAL TO PATIENT CARE. The findings were verbally communicated via telephone conference with JOANA HUANG at 11:15 PM EDT on 09/08/2021. The findings were acknowledged and understood. COMMENTS: Consistent with the [employer]'s Incidental Findings Committee white paper (J Am Celestina Radiol 2018): Any incidental renal lesion less than 1 cm or classified as too small to characterize, or any incidental cystic renal lesion characterized as simple-appearing, is likely benign. No follow-up imaging is recommended for these lesions per consensus recommendations based on imaging criteria.
[2021-09-08 21:33] VITALS: PULSE 81
[2021-09-08 21:34] VITALS: PULSE 83
[2021-09-08 21:43] LABS: Basophils # 0.1 K/mm3 (0-0.2); Basophils % 0.8 % (0.1-2.0); Eosinophils # 0.4 K/mm3 (0.0-0.4); Eosinophils % 3.4 % (0.1-12.0); Hematocrit 37.8 % (42.0-52.0); Hemoglobin 12.5 g/dL (14.1-18.0); Lymphocytes # 1.5 K/mm3 (0.7-4.5); Lymphocytes % 14.5 % (10-50); Mean Corpuscular Hemoglobin 29.3 pg (27.0-31.2); Mean Corpuscular Volume 88.8 fl (80-94); Monocytes # 1.1 K/mm3 (0.1-1.0); Monocytes % 9.9 % (1.7-9.3); Neutrophils # 7.6 K/mm3 (1.8-7.8); Neutrophils % 71.5 % (37.0-80.0); Platelet Count 421 K/mm3 (142-424); Red Blood Count 4.26 M/mm3 (4.60-6.20); Red Cell Distribution Width 12.8 % (11.5-17.5); White Blood Count 10.6 K/mm3 (4.8-10.8)
[2021-09-08 21:56] LABS: Chloride 99 mmol/L (98-107); Potassium 3.4 mmoL/L (3.5-5.1); Sodium 131 mmol/L (136-145)
[2021-09-08 21:59] LABS: Alanine Aminotransferase 20 U/L (12-78); Alkaline Phosphatase 95 U/L (38-126); Anion Gap 9.4 mEq/L (5-15); Aspartate Amino Transferase 39 U/L (17-59); Bilirubin,Direct 0.3 mg/dl (0.0-0.4); Bilirubin,Indirect 0.3 mg/dL (0.0-0.9); Bilirubin,Total 0.6 mg/dl (0.2-1.3); Bilirubin,Unconjugated 0.2 mg/dL (0.0-1.1); Blood Urea Nitrogen 9 mg/dl (9-20); Calcium 8.5 mg/dl (8.4-10.2); Carbon Dioxide 26 mmol/L (22.0-30.0); Creatinine Clearance Estimated 64 mL/min (50-200); Estimated Glomerular Filt Rate 297 ml/min (>60); GFR (African American) 360 ML/MIN (>60); Glucose 107 mg/dl (74-100); Total Protein,Serum 6.4 g/dl (6.3-8.2)
[2021-09-08 22:00] LABS: Lactic Acid 2.1 mmol/L (0.7-2.1)
[2021-09-08 22:01] VITALS: BP 140/64; PULSE 108; O2SAT 96
[2021-09-08 22:05] LABS: C-Reactive Protein 144.8 mg/L (0-4)
[2021-09-08 22:11] LABS: Erythrocyte Sedimentation Rate 25 mm/hr (0-20); NT Pro Brain Natriuretic Pep. 304 pg/mL (0-125)
[2021-09-08 22:18] LABS: Troponin I < 0.01 ng/ml (0.00-0.034)
[2021-09-08 23:00] VITALS: BP 154/63; PULSE 102; O2SAT 97
--- NOTE | 2021-09-08 23:00 | PC.NURSE ---
PT REPORTS THAT HE HAS NOT BEEN TAKING HIS HOME MEDICATIONS OR REFILLING THEM ONCE HE HAS RUN OUT. PT STATES THE SHORTNESS OF AIR HAS WORSENED SINCE HE QUIT ALL OF HIS MEDICATIONS DURING THE PAST WEEK. PT DENIES CHEST PAIN. PT STATES HIS SHORTNESS OF AIR HAS IMPROVED. PT AWARE OF NEED FOR SPUTUM SPECIMEN. NO COMPLAINTS VOICED. NO ACUTE DISTRESS NOTED.
[2021-09-08 23:14] LABS: Microscopic, Urine URINE MICROSCOPIC (MICROSCOPIC)
[2021-09-08 23:16] LABS: Appearance,Urine CLEAR (Clear); Bilirubin,Urine Negative (Negative); Blood, Urine TRACE-I (Negative); Color,Urine YELLOW (Yellow); Glucose,Urine (UA) Negative (Negative); Ketones,Urine TRACE (Negative); Leukocyte Esterase,Urine Negative (Negative); Nitrate,Urine Negative (Negative); PH,Urine 6.5 (5.0-8.5); Protein,Urine Negative (Negative); Urobilinogen,Urine 0.2 EU/dl (0.2)
[2021-09-08 23:18] LABS: Amorphous Sediment,Urine Trace /lpf
[2021-09-08 23:30] VITALS: BP 154/53; PULSE 98; O2SAT 96
[2021-09-09] VITALS (30 sets, daily range): BP systolic 97–157; BP diastolic 46–128; PULSE 73–98; RESP 16–18; TEMP 36.3–37; O2SAT 92–100; BMI 19.3
[2021-09-09 00:27] LABS: Reflex Lactic Add Lactic Reflex
--- NOTE | 2021-09-09 00:30 | PC.NURSE ---
PT REMAINS AFEBRILE. PT AWARE OF PLAN TO ADMIT AND PLAN FOR IV ANTIBIOTICS. PT REPORTS SHORTNESS OF AIR HAS IMPROVED AND IS AGREEABLE TO ADMISSION. BLANKET PROVIDED FOR COMFORT.
[2021-09-09 00:38] LABS: Lactic Acid Follow Up (RFLX 1) 1.2 mmol/L (0.7-2.1)
[2021-09-09 00:39] LABS: Ethyl Alcohol < 10 mg/dl (0-10)
[2021-09-09 00:52] LABS: Troponin I < 0.01 ng/ml (0.00-0.034)
--- NOTE | 2021-09-09 00:57 | PC.NURSE ---
IV FLUIDS INFUSING WITHOUT DIFFICULTY. PT DENIES PAIN/SHORTNESS OF AIR. URINAL EMPTIED. WILL CONTINUE TO MONITOR.
--- NOTE | 2021-09-09 01:18 | PC.NURSE ---
Pt currently boarding in ER. Pt moved to hospital bed and made comfortable. No other needs at this time. Call light within reach.
--- NOTE | 2021-09-09 01:58 | PC.NURSE ---
ABX ADMINISTERED ORDERED. DISCUSSED WITH PATIENT IMPORTANCE OF FOLLOWING HOME REGIMEN OF MEDICATIONS, ATTENDING FOLLOW UP APPTS. PT DENIES SHORTNESS OF AIR. PT AWARE OF NEED FOR SPUTUM CULTURE. CUP AT BEDSIDE. PT INSTRUCTED ON PURSE LIPPED BREATHING. NO COMPLAINTS VOICED. NO ACUTE DISTRESS NOTED AT THIS TIME.
--- NOTE | 2021-09-09 03:14 | PC.NURSE ---
Pt resting well with eyes closed. No needs at this time. Call light withing reach.
--- NOTE | 2021-09-09 03:33 | PC.NURSE ---
NO COMPLAINTS VOICED. NO ACUTE DISTRESS NOTED. WCM.
[2021-09-09 03:53] LABS: Troponin I < 0.01 ng/ml (0.00-0.034)
--- NOTE | 2021-09-09 08:14 | HMH.PHAVTE ---
[facility] Pharmacy VTE Monitoring - Patient Demographics Admission date: 09/09/21 Report Date: 09/09/21 Time: 08:14 Allergies/Adverse Reactions: Patient Allergies No Known Allergies Allergy (Verified 05/09/21 13:12) Height: 1.8 m Weight: 64.41 kg Patient Problems: Current Active Problems Tobacco use disorder (Chronic) Acute exacerbation of chronic obstructive airways disease (Acute) Severe sepsis with acute organ dysfunction (Acute) Bronchial obstruction (Acute) - VTE Risk Labs: VTE Related Lab Results Hgb 12.5 g/dL (14.1-18.0) L 09/08/21 21:28 Hct 37.8 % (42.0-52.0) L 09/08/21 21:28 Plt Count 421 K/mm3 (142-424) 09/08/21 21:28 BUN 9 mg/dl (9-20) 09/08/21 21:28 Creatinine 0.30 mg/dl (0.66-1.25) L 09/08/21 21:28 Estimated Creat Clear 64 mL/min (50-200) 09/08/21 21:28 Clinical Trial Participant: No - Prophylaxis VTE Prophylaxis Ordered?: Yes Types of VTE Prophylaxis: TEDS Knee High
--- NOTE | 2021-09-09 08:44 | PC.NURSE ---
dr. shrestha at with care management for rounds
--- NOTE | 2021-09-09 08:48 | PC.NURSE ---
Addendum entered by Annetta Varma, SIMBA 09/09/21 09:12: also give pt clear liquid diet and advance as tolerated Original Note: after making rounds Dr. Logan gave verbal orders for d/c solumedrol CIWA protocol assessment along with serax PO and ralrafael santos per alcoholwithdraw protocol. nitcotine patch 14 mg make sure there is a pulmonology consult on pt. all orders repeated and verified
--- NOTE | 2021-09-09 08:52 | PC.NURSE ---
VIJAY RN on phone speaking to family on pt status
--- NOTE | 2021-09-09 08:52 | PC.NURSE ---
spoke with Gilda pt valentino and VIOLET per pt chart, called to check on pt. also reported that the people pt lives with have bed bugs so we should watch out for that. Have notified ER staff to monitor for this and will decontaminate pt if needed
--- NOTE | 2021-09-09 08:54 | HMH.HP ---
*Admission Date: 09/09/21 *Chief complaint: Cough and congestion *History of present illness: 71-year-old white male with history of alcohol abuse and COPD, who was admitted to the hospital in May, but has not followed up with recommended office appointments. He was also contemplated admission to rehabilitation facility for his alcoholism but decided not to pursue this. He has moved to [facility], and is apparently looking to get into some type of subsidized housing, but is currently living with a friend in [facility] and has some support from his sister. He became afflicted with congestion, cough and shortness of air last night, came to the emergency department. ER work-up revealed COPD exacerbation and infiltrate on chest x-ray and CT showed evidence of bronchial swelling suspicious for malignancy with postobstructive pneumonia. [facility] History I have reviewed the patient's past medical history: Yes Medical History: Reports:: Congestive Heart Failure, Chronic Obstructive Pulmonary Disease (COPD), Congenital Heart Disease, Hyperlipidemia, Hypertension Denies:: Diabetes Mellitus Type 1, Diabetes Mellitus Type 2 *Have you ever received a pneumonia vaccine?: No *Have you received a flu vaccine this season?: No Fractures: Yes - *Social History Smoking Status: Former smoker Tobacco Type: cigarettes # Packs/Day (cigarettes): 1 Alcohol Intake: current Alcohol Intake Frequency:: 3 or more drinks per day *Occupational Status:: retired Household Members: friend(s) *Travel in the last 8 weeks: None Family Hx:: No significant family history Review of Systems - Review of Systems Review of systems:: pertinent systems reviewed and negative unless documented below - *Neurologic Reports weakness, Denies localized weakness, Denies seizure-like activity Meds Home Medications Medication Instructions Recorded Confirmed Type Ipratropium/Albuterol Sulfate 3 ml IH QID PRN 05/29/21 09/08/21 History [Iprat-Albut 0.5-3(2.5) mg/3 ml] Furosemide [Lasix 20mg tab] 20 mg PO DAILY 09/08/21 09/08/21 History Sacubitril/Valsartan [Entresto 24 1 each PO BID 09/08/21 09/08/21 History mg-26 mg Tablet] Allergies Allergy/AdvReac Type Severity Reaction Status Date / Time No Known Allergies Allergy Verified 05/09/21 13:12 Exam Vital signs and Labs for Last 24 Hours: Temp Pulse Resp BP Pulse Ox 97.8 F 86 16 128/64 97 09/09/21 06:02 09/09/21 08:30 09/09/21 03:00 09/09/21 08:30 09/09/21 08:30 Laboratory Results - last 24 hr 09/08/21 21:06: Specimen Source rr, O2 % 3, ABG pH 7.46 H, ABG pCO2 31.2 L, ABG pO2 71.1 L, ABG HCO3 21.8 L, ABG Total CO2 22.8 L, ABG O2 Saturation 95, ABG Base Excess -1.9, Joseph Test y 09/08/21 21:13: SARS-CoV-2 (PCR) Not detected, Influenza A Untype (PCR) Not detected, Influenza Type B (PCR) Not detected 09/08/21 21:28: WBC 10.6, RBC 4.26 L, Hgb 12.5 L, Hct 37.8 L, MCV 88.8, MCH 29.3, MCHC 33.0, RDW 12.8, Plt Count 421, MPV 7.0 L, Neut % (Auto) 71.5, Lymph % (Auto) 14.5, [place] % (Auto) 9.9 H, Eos % (Auto) 3.4, Baso % (Auto) 0.8, Neut # (Auto) 7.6, Lymph # (Auto) 1.5, [place] # (Auto) 1.1 H, Eos # (Auto) 0.4, Baso # (Auto) 0.1, ESR 25 H 09/08/21 21:28: Sodium 131 L, Potassium 3.4 L, Chloride 99, Carbon Dioxide 26, Anion Gap 9.4, BUN 9, Creatinine 0.30 L, Estimated Creat Clear 64, Estimated GFR 297, Est GFR ( Amer) 360, Glucose 107 H, Calcium 8.5, Total Bilirubin 0.6, Direct Bilirubin 0.3, Conjugated Bilirubin 0.0, Indirect Bilirubin 0.3, Unconjugated Bilirubin 0.2, AST 39, ALT 20, Alkaline Phosphatase 95, Troponin I < 0.01, C-Reactive Protein 144.8 H, Total Protein 6.4, Albumin 3.0 L 07/17/22 21:28: Lactate 2.1 07/17/22 21:28: NT-Pro-B Natriuret Pep 304 H 09/08/21 23:09: Urine Color Yellow, Urine Appearance Clear, Urine pH 6.5, Ur Specific [place] 1.010, Urine Protein Negative, Urine Glucose (UA) Negative, Urine Ketones Trace, Urine Blood Trace-i, Urine Nitrate Negative, Urine Bilirubin Ne
[2021-09-09 08:55] LABS: Basophils % 0.1 % (0.1-2.0); Eosinophils % 0.3 % (0.1-12.0); Hematocrit 38.4 % (42.0-52.0); Hemoglobin 12.3 g/dL (14.1-18.0); Lymphocytes # 0.7 K/mm3 (0.7-4.5); Lymphocytes % 10.4 % (10-50); MANUAL DIFFERENTIAL MANUAL DIFFERENTIAL (MANUAL DIFF); Mean Corpuscular Hemoglobin 29.1 pg (27.0-31.2); Mean Platelet Volume 7.8 fl (7.4-10.4); Monocytes # 0.2 K/mm3 (0.1-1.0); Monocytes % 2.8 % (1.7-9.3); Neutrophils # 6.1 K/mm3 (1.8-7.8); Neutrophils % 86.4 % (37.0-80.0); Platelet Count 463 K/mm3 (142-424); Red Blood Count 4.22 M/mm3 (4.60-6.20); Red Cell Distribution Width 12.7 % (11.5-17.5)
[2021-09-09 08:56] LABS: Chloride 100 mmol/L (98-107); Sodium 132 mmol/L (136-145)
[2021-09-09 08:59] LABS: Blood Urea Nitrogen 8 mg/dl (9-20); Calcium 8.4 mg/dl (8.4-10.2); Carbon Dioxide 27 mmol/L (22.0-30.0); Creatinine Clearance Estimated 64 mL/min (50-200); Estimated Glomerular Filt Rate 297 ml/min (>60); GFR (African American) 360 ML/MIN (>60); Glucose 172 mg/dl (74-100); Magnesium 1.6 mg/dl (1.6-2.3)
--- NOTE | 2021-09-09 09:08 | PC.NURSE ---
notified pulmonology office of consult, spoke with bill
--- NOTE | 2021-09-09 09:12 | PC.NURSE ---
CIWA score 5, at this time pt has shaky with a score of 4 and sweaty with a score of 1
[2021-09-09 09:18] LABS: Lymphocytes % 16 % (10-50); Monocytes % 4 % (2-9); Neutrophils % 80 % (42-76); Platelet Estimate Normal; RBC Morphology Normal; Total Cells Counted 100
--- NOTE | 2021-09-09 09:44 | PC.NURSE ---
rounded on pt at this time, pt given pineda mist seizure pads on bed r/t CIWA protocol urinal emptied, 400 mL
--- NOTE | 2021-09-09 09:47 | PC.NURSE ---
respiratory aware that duoneb order is placed on pt
--- NOTE | 2021-09-09 10:34 | PC.NURSE ---
pt in bed resting now
--- NOTE | 2021-09-09 10:37 | PC.NURSE ---
Pulmonary in room at BS
--- NOTE | 2021-09-09 10:39 | PC.NURSE ---
DR RENDON IS GONNA DO A BRONCH TOMORROW
--- NOTE | 2021-09-09 10:49 | HMH.PULMCON ---
*Admission Date: 09/09/21 *Reason for consult:: COPD exacerbation, left lower lobe: *History of present illness: Mr. Leary is a 71-year-old male current smoker greater than 26-qohg-dctd smoking history significant alcoholic history last admitted to the hospital in April with hypercarbic respiratory failure/COPD exacerbation presented to the hospital building worsening respiratory swelling with cough and productive CTA performed of the patient did not show any dense consolidation except for the left lower lobe collapse and possible endobronchial lesion mucous plug at the origin of the left lower lobe bronchus and pulmonary was called for further management. Patient noted to have other multiple pulmonary nodules all less than 6 mm in size. [facility] History Medical History: Reports:: Congestive Heart Failure, Chronic Obstructive Pulmonary Disease (COPD), Congenital Heart Disease, Hyperlipidemia, Hypertension Denies:: Diabetes Mellitus Type 1, Diabetes Mellitus Type 2 *Have you ever received a pneumonia vaccine?: No *Have you received a flu vaccine this season?: No Fractures: Yes - *Social History Smoking Status: Former smoker Tobacco Type: cigarettes # Packs/Day (cigarettes): 1 Alcohol Intake: current Alcohol Intake Frequency:: 3 or more drinks per day *Occupational Status:: retired Household Members: friend(s) *Travel in the last 8 weeks: None Family Hx:: No significant family history ROS - Cons Reports body ache(s), Reports chills, Reports fatigue - Eyes Reports blurry vision - ENT Denies bleeding gums - Card Reports shortness of breath, Reports shortness of breath with activity - Resp Respiratory: Reports cough, Reports excessive phlegm production, Reports cough with sputum production, Denies pain with breathing, Reports wheezing - GI Gastrointestingal: Denies: abdominal pain - [place] Musculoskeletal: Reports back pain - Psych Denies thoughts of hurting/killing others, Denies thoughts of hurting/killing yourself Meds Home Medications Medication Instructions Recorded Confirmed Type Ipratropium/Albuterol Sulfate 3 ml IH QID PRN 05/29/21 09/08/21 History [Iprat-Albut 0.5-3(2.5) mg/3 ml] Furosemide [Lasix 20mg tab] 20 mg PO DAILY 09/08/21 09/08/21 History Sacubitril/Valsartan [Entresto 24 1 each PO BID 09/08/21 09/08/21 History mg-26 mg Tablet] Allergies Allergy/AdvReac Type Severity Reaction Status Date / Time No Known Allergies Allergy Verified 05/09/21 13:12 Exam - Constitutional Constitutional:: Present: no acute distress - HENMT Exam HENMT: Present: normocephalic - Eye Exam Eyes:: Present: normal appearance both eyes and related structures - Neck Exam Neck:: Present: normal visual inspection - Respiratory Exam Respiratory:: Present: able to speak in complete sentences, no respiratory distress, decreased breath sounds. Absent: crackles, wheezing Comments: Decreased breath sounds left lower lung field - Cardiovascular Exam Cardiac:: Present: S1, S2 - GI Exam GI:: Present: soft - Skin Exam Skin: Present: warm - Neurological Exam Neurological: Present: alert, awake - Extremities Exam Extremities: Present: no cyanosis, no clubbing - Psychiatric Exam Psychiatric: Present: normal affect Internal Medicine - CN: Reslt - Labs CBC & Chem 7: 09/09/21 06:09 09/09/21 06:09 Labs: Short CBC 09/08/21 09/09/21 Range/Units 21:28 06:09 WBC 10.6 7.0 D (4.8-10.8) K/mm3 Hgb 12.5 L 12.3 L (14.1-18.0) g/dL Hct 37.8 L 38.4 L (42.0-52.0) % Plt Count 421 463 H (142-424) K/mm3 BMP 09/08/21 09/09/21 21:28 06:09 Sodium 131 L 132 L Potassium 3.4 L 4.0 Chloride 99 100 Carbon Dioxide 26 27 BUN 9 8 L Creatinine 0.30 L 0.30 L Glucose 107 H 172 H D Calcium 8.5 8.4 Cardiac Enzymes 09/08/21 09/09/21 09/09/21 Range/Units 21:28 00:15 03:10 Troponin I < 0.01 < 0.01 < 0.01 (0.00-0.034) ng/ml Liver Function
--- NOTE | 2021-09-09 10:51 | PC.NURSE ---
Addendum entered by Annetta Varma RN 09/09/21 10:54: room is being cleaned, states will notify ER when room is ready Original Note: pt assigned to room 209 on second floor per dye house worker at this time
--- NOTE | 2021-09-09 11:47 | PC.NURSE ---
report called to Carley COTTRELL
--- NOTE | 2021-09-09 12:29 | PC.NURSE ---
pt has been qadmitted to the floor. He is alert and oriented. reports drinking 7 beers daily but per family he drinks approx 30 daily for 30 years. Pt is Short of air. reports it has wrsened over the last week. He continues to smoke. currently on 2lnc. he has coarse wheezes and is unable to ambulate @ this time due to the SOA. BSC placed in pts room. reports taking no home medications only an occasional inhaler.
--- NOTE | 2021-09-09 17:10 | PC.NURSE ---
Patient has remained on 2LNC since arriving to the floor. Patient lung sounds remain unchanged from assessment earlier in the shift. Patient has had adequate urine output following the dose of lasix. Patient has tolerated PO intake thus far.
[2021-09-10] VITALS (20 sets, daily range): BP systolic 93–150; BP diastolic 47–99; PULSE 77–108; RESP 16–22; TEMP 36.3–36.6; O2SAT 90–100; BMI 19.6
--- NOTE | 2021-09-10 06:20 | PC.NURSE ---
Patient A&O x4. Patient tolerating 2l nc. Patient scoring 1 throughout shift on ciwa assessment. Intermitted cough noted. Patient has been npo and surgical bath performed for bronchoscopy later today.
[2021-09-10 06:41] LABS: Basophils % 0.1 % (0.1-2.0); Eosinophils % 0.1 % (0.1-12.0); Hematocrit 36.6 % (42.0-52.0); Hemoglobin 11.9 g/dL (14.1-18.0); Lymphocytes # 0.9 K/mm3 (0.7-4.5); Lymphocytes % 6.8 % (10-50); Mean Corpuscular HGB Conc 32.5 g/dL (31.8-35.4); Mean Corpuscular Hemoglobin 28.8 pg (27.0-31.2); Mean Corpuscular Volume 88.6 fl (80-94); Mean Platelet Volume 6.7 fl (7.4-10.4); Monocytes # 1.2 K/mm3 (0.1-1.0); Monocytes % 8.5 % (1.7-9.3); Neutrophils # 11.4 K/mm3 (1.8-7.8); Neutrophils % 84.5 % (37.0-80.0); Platelet Count 457 K/mm3 (142-424); Red Blood Count 4.14 M/mm3 (4.60-6.20); White Blood Count 13.5 K/mm3 (4.8-10.8)
[2021-09-10 06:49] LABS: Anion Gap 8.1 mEq/L (5-15); Blood Urea Nitrogen 9 mg/dl (9-20); Calcium 7.9 mg/dl (8.4-10.2); Carbon Dioxide 28 mmol/L (22.0-30.0); Chloride 98 mmol/L (98-107); Creatinine Clearance Estimated 61 mL/min (50-200); Estimated Glomerular Filt Rate 213 ml/min (>60); GFR (African American) 258 ML/MIN (>60); Glucose 134 mg/dl (74-100); INR 1.26 (0.9-1.1); Potassium 3.1 mmoL/L (3.5-5.1); Sodium 131 mmol/L (136-145)
--- NOTE | 2021-09-10 08:11 | HMH.ACPN2 ---
Internal Medicine - PN: Subj *Date: 09/10/21 *Time: 08:11 Interval history: Patient slept well through the night. No complaints. Breathing easily. Is n.p.o. for bronchoscopy today. Exam Vital signs and Labs for Last 24 Hours: Temp Pulse Resp BP Pulse Ox 97.9 F 85 18 103/51 L 98 09/10/21 03:56 09/10/21 05:45 09/10/21 03:56 09/10/21 03:56 09/10/21 05:45 Laboratory Results - last 24 hr 09/09/21 06:09: WBC 7.0 D, RBC 4.22 L, Hgb 12.3 L, Hct 38.4 L, MCV 91.0, MCH 29.1, MCHC 32.0, RDW 12.7, Plt Count 463 H, MPV 7.8, Neut % (Auto) 86.4 H, Lymph % (Auto) 10.4, [place] % (Auto) 2.8, Eos % (Auto) 0.3, Baso % (Auto) 0.1, Neut # (Auto) 6.1, Lymph # (Auto) 0.7, [place] # (Auto) 0.2, Eos # (Auto) 0.0, Baso # (Auto) 0.0, Total Counted 100, Neutrophils % (Manual) 80 H, Lymphocytes % (Manual) 16, Monocytes % (Manual) 4, Platelet Estimate Normal, RBC Morphology Normal 09/09/21 06:09: Sodium 132 L, Potassium 4.0, Chloride 100, Carbon Dioxide 27, Anion Gap 9.0, BUN 8 L, Creatinine 0.30 L, Estimated Creat Clear 64, Estimated GFR 297, Est GFR ( Amer) 360, Glucose 172 H D, Calcium 8.4, Magnesium 1.6 09/10/21 06:07: WBC 13.5 H D, RBC 4.14 L, Hgb 11.9 L, Hct 36.6 L, MCV 88.6, MCH 28.8, MCHC 32.5, RDW 13.0, Plt Count 457 H, MPV 6.7 L, Neut % (Auto) 84.5 H, Lymph % (Auto) 6.8 L, [place] % (Auto) 8.5, Eos % (Auto) 0.1, Baso % (Auto) 0.1, Neut # (Auto) 11.4 H, Lymph # (Auto) 0.9, [place] # (Auto) 1.2 H, Eos # (Auto) 0.0, Baso # (Auto) 0.0 09/10/21 06:07: PT 14.0 H, INR 1.26 H 09/10/21 06:07: Sodium 131 L, Potassium 3.1 L D, Chloride 98, Carbon Dioxide 28, Anion Gap 8.1, BUN 9, Creatinine 0.40 L D, Estimated Creat Clear 61, Estimated GFR 213, Est GFR ( Amer) 258 D, Glucose 134 H D, Calcium 7.9 L, Magnesium 2.0 D I & O for Last 24 hours: Intake & Output 09/07/21 09/08/21 09/09/21 09/10/21 11:59 11:59 11:59 11:59 Intake Total 2400 / 2400 360 / 360 Output Total 800 / 800 2590 / 2590 Balance 1600 / 1600 -2230 / -2230 Weight 142 lb 137 lb 4 oz - Constitutional no acute distress, chronically ill appearing - *Routine HEENT Exam Head: Present: normocephalic Eye: Present: EOMI, PERRL ENT: Present: mucous membranes moist - *Routine Neck Exam Present: supple. Absent: lymphadenopathy - *Routine Respiratory Exam Present: prolonged expiratory phase, rhonchi - *Routine Cardiovascular Exam Present: RRR - *Routine Abdominal Exam Present: soft, normoactive bowel sounds. Absent: tenderness - *Routine Extremities Exam Absent: cyanosis, clubbing, edema - *Routine Skin Exam Present: warm. Absent: rash - *Routine Neurological Exam Present: alert, oriented X3 Assessment and Plan (1) Acute exacerbation of chronic obstructive airways disease Status: Acute Category: Medical Code(s): J44.1 - Chronic obstructive pulmonary disease with (acute) exacerbation (2) Bronchial obstruction Status: Acute Category: Medical Code(s): J98.09 - Other diseases of bronchus, not elsewhere classified (3) Tobacco use disorder Status: Chronic Category: Medical Code(s): F17.200 - Nicotine dependence, unspecified, uncomplicated (4) Alcohol abuse Status: Acute Category: Social Hx Code(s): F10.10 - Alcohol abuse, uncomplicated - Assessment and plan all Dx Assessment and Plan for all problems:: Patient is improving. No changes in plan. Hyponatremia noted. Possibly from lung malignancy. Await biopsies. Possible discharge tomorrow if biopsy [id number]/polickaylaol.
--- NOTE | 2021-09-10 09:23 | P.PN_ITS ---
Internal Medicine - PN: Subj *Date: 09/10/21 *Time: 10:27 Interval history: No acute respiratory events overnight. Patient admits continued improvement in his symptoms. Exam - Constitutional Constitutional:: Present: no acute distress, comfortable - HENMT Exam HENMT: Present: normocephalic - Eye Exam Eyes:: Present: normal appearance both eyes and related structures - Neck Exam Neck:: Present: normal visual inspection - Respiratory Exam Respiratory:: Present: able to speak in complete sentences, no respiratory distress, wheezing - Cardiovascular Exam Cardiac:: Present: S1, S2 - Skin Exam Skin: Present: warm, no rash - Neurological Exam Neurological: Present: alert, awake, normal cognition - Extremities Exam Extremities: Present: no cyanosis, no clubbing, no edema Assessment and Plan (1) Acute exacerbation of chronic obstructive airways disease Status: Acute Category: Medical Code(s): J44.1 - Chronic obstructive pulmonary disease with (acute) exacerbation (2) Bronchial obstruction Status: Acute Category: Medical Code(s): J98.09 - Other diseases of bronchus, not elsewhere classified (3) Tobacco use disorder Status: Chronic Category: Medical Code(s): F17.200 - Nicotine dependence, unspecified, uncomplicated (4) Alcohol abuse Status: Acute Category: Social Hx Code(s): F10.10 - Alcohol abuse, uncomplicated - Assessment and plan all Dx Assessment and Plan for all problems:: #COPD exacerbation: 71-year-old male current smoker greater than 71-acll-zmij smoking history, used to smoke 2 to 3 packs a day, currently down to half pack a day most recent exacerbation April 2019.. Presented with worsening respiratory distress along with cough and worsening productive productive phlegm. Afebrile. No evidence of leukocytosis. CTA on admission other than left lower lobe collapse, no evidence of other dense consolidation noted. Patient was initiated on antibiotics nebs and steroids on admission. On examination patient does not appear to be in any respiratory distress. Saturating 96% on 3 L nasal cannula. Interval update: Continued improvement in respiratory symptoms and distress. Chest continues to show wheezing unchanged from yesterday. Improving oxygen commenced, weaned to 2 L Saturations maintained at 92% above. Patient chronic long-term oxygen therapy at home at 2 L Plan:- -DuoNebs every 6 hours plan with budesonide every 12 scheduled -Prednisone 40 mg daily x5 days -Continue clindamycin x 5days. Recommend to stop levofloxacin from pulmonary standpoint despite concerning for postobstructive pneumonia. Will defer continuation to primary team for any other nonpulmonary etiology at this point of time #Left lower lobe collapse: #Greater than 24-jqty-cixd smoking: Current smoker greater than 99-[id number]-bnpd CT on admission showed left lower lobe collapse along with possible endobronchia l lesion/mucous plugging. No significant mediastinal or hilar lymphadenopathy noted. Non-compliant with follow ups. We will schedule bronchoscopy while inpatient INR 1.26 Plan: Hypokalemia @ 3.1 -replete with 30 IV prior to bronchoscopy procedure. Ordered. -Bronchoscopy airway examination with possible Endo/transbronchial lung biopsy 12:00 PM 09/10/2021.. Currently not using any platelets as anticoagulations. Recommend discontinuing anticoagulats in any initiated after midnight #Thank you for involving pulmonary in this patient care. We will continue to follow.
--- NOTE | 2021-09-10 10:29 | PC.NURSE ---
RESP CARE NOTE: Pt placed on 1 02/[address] Ayon, will continue to monitor patient.
--- NOTE | 2021-09-10 11:20 | PC.NURSE ---
Spoke with Jeffry in pharmacy at this time. OK to run potassium concurrently with Rally Pack. Patient on telemetry.
--- NOTE | 2021-09-10 11:49 | PC.NURSE ---
SURGERY NOTE: Attempted to call pt's POA to let her know about pts scheduled procedure. No answer and voicemail is full. Pt is A&Ox4 and is able to sign his own consent. Signed and witnessed by this RN
--- NOTE | 2021-09-10 12:35 | HMH.ANESCL ---
[facility] Anesthesia Checklist - Patient Identification Patient Identification: Arm Band - Structural Data Admitted From: Inpatient Planned Operative Procedure/s: Bronchoscopy with Transbronchial Bx Consent for Planned Operative Procedure(s) Verified: Yes Verified Documents: Surgical Consent, History and Physical - NPO Status Verified Time NPO: 00:00 - Additional verifications Anesthesia Reactions: No - Airway Assessment C-Spine Mobility Assessed: Yes (mp2) TMJ Mobility Assessed: Yes Dentition: Edentulous - Neurological Assessment Level of Consciousness: Awake, Alert - Psychosocial Assessment Concerns Regarding Surgery: nac - Anesthesia Plan Anesthesia Risk discussed: Yes Anesthesia Plan: Verified ASA Class: III Anesthesia Type: General [facility] History I have reviewed the patient's past medical history: Yes Medical History: Reports:: Congestive Heart Failure, Chronic Obstructive Pulmonary Disease (COPD), Congenital Heart Disease, Hyperlipidemia, Hypertension Denies:: Cancer, Diabetes Mellitus Type 1, Diabetes Mellitus Type 2, Internal Pacemaker, MRSA *Have you ever received a pneumonia vaccine?: Yes *Have you received a flu vaccine this season?: Yes Anesthesia experience/problems:: nac Other Surgeries: Yes: Other. No: Pacemaker Amputation: No Fractures: Yes - *Social History Last grade of school completed: 5th or 6th Smoking Status: Current every day smoker Tobacco Type: cigarettes # Packs/Day (cigarettes): 1 Alcohol Intake: current Alcohol Intake Frequency:: 3 or more drinks per day Substance Use Type: denies use *Occupational Status:: disabled Household Members: friend(s) *Travel in the last 8 weeks: None Family Hx:: Cancer, Diabetes, Hypertension, Alcoholism
--- NOTE | 2021-09-10 12:54 | PC.NURSE ---
when i recieved report pt was off floor. roseline verified pt left floor at 1143
--- NOTE | 2021-09-10 12:57 | XR_ITS ---
FINAL REPORT CLINICAL HISTORY: BRONCH bx fluoro time 1.4 FINDINGS: FLUORO TIME PROCEDURE: Fluoroscopy in the operating room. Fluoroscopy time was provided by the radiology department for the clinical service. One spot film was obtained. Fluoroscopy exposure time: 1.4 minutes IMPRESSION: See above Reviewed, Interpreted and Dictated by Alban Dailey III, MD Transcribed by Sheba Zuñiga Authenticated and . [facility]
--- NOTE | 2021-09-10 13:04 | P.PN_ITS ---
[facility] Anesthesia Record Part I Intake, IV Amount: 400 Estimated blood loss (mL): 0 Urine output (mL): 0 Blood Pressure: 134/99 SaO2: 93 Pulse Rate: 102 Respiratory Rate: 16 Temperature: 97.4 F Patient is:: Drowsy, Stable Stable to PACU at:: 13:00
--- NOTE | 2021-09-10 15:20 | PC.NURSE ---
sharon verified with pharmacy k and LR compatibility.
--- NOTE | 2021-09-10 16:24 | P.PN_ITS ---
[facility] Anesthesia Record Part II Discharge Time: 13:20 Destination: Medical Surgical Department PACU nurse assessment reviewed?: Yes Patient Condition:: Good Anesthesia Complications:: None Swallowing reflex intact?: Yes Cyanosis?: No Blood Pressure: 129/56 Pulse Rate: 108 Temperature: 97.4 F Mental Status: Alert & Oriented Pain level:: 0 Nausea and/or vomitting:: None Intake, IV Amount: 0
--- NOTE | 2021-09-10 16:53 | HMH.BRONCH ---
- Procedure: Date: 09/10/21 Patient Date of :: 1950 Procedure Performed:: Bronchoscopy with airway examination, alveolar lavage and transbronchial lung biopsy Indications:: Left lower lobe collapse Performing Provider:: Aurea Ayon MD Referring Provider:: Dr. Logan Sedation:: General anesthesia Procedure:: Bronchoscopy with airway examination, alveolar lavage and transbronchial lung biopsy: A Clean therapeutic bronchoscopy was advanced through the ET tube and airways were examined up to subsegmental bronchi. The bronchi in the right lung appear to be normal. No mucous plugging/mucoid secretions noted. On left lung examination the left upper lobe bronchus appeared normal. Copious amount of mucoid secretions were noted in the left lower lobe bronchus. After suctioning the secretions, no obvious endobronchial lesions noted contributing to patient's current left lower lobe collapse on examination. Diffuse airway inflammation noted in the left lower lobe bronchus. Bronchoalveolar lavage was performed the left lower lobe with a total of instillation of 60 cc normal saline with a 30 cc of mucoid sample return. BAL samples were sent for AFB gram stain and fungal staining and cultures. BAL samples were not sent for cytopathologic examination. Transbronchial biopsies were also performed in the left lower lobe, a total of 7 biopsies were performed, 5 biopsy specimens were sent in formalin for cytopathologic examination with remaining 2 biopsies one each in normal saline specimen cups for bacterial AFB fungal stain cultures. Estimated blood loss 5 cc Patient tolerated the procedure well Findings:: Please see the procedure note Recommendations:: Please see the procedure note and progress note from today Complications:: None Estimated blood obtained (mL): 5
--- NOTE | 2021-09-10 19:48 | PC.NURSE ---
Addendum entered by Mare Chirinos RN 09/10/21 19:54: pt now on regular diet, tolerating well. Original Note: pt came back to floor after EGD around 1300. pt has been pleasant with no concerns or complaints. vss, lung sounds have some ronchi, non productive cough but was able to get a sputum specimen after neb tx. 20g iv left wrist with LR @ 125. alert X4, 3L O2 via NC. INDEPENDENT USE OF URINAL WITH clear yellow adequate amount of urine. call keyes/ personal items within reach. no other questions or concerns at this time.
[2021-09-11] VITALS (8 sets, daily range): BP systolic 96–114; BP diastolic 46–57; PULSE 80–102; RESP 17–20; TEMP 36.4–36.7; O2SAT 95–98; BMI 19.6
--- NOTE | 2021-09-11 03:40 | PC.NURSE ---
Pt has been resting throughout shift, pt has nonproductive cough intermittently. Pt is on 3L NC with O2 sat >95%. Lung sounds rhonchi bilaterally throughout inspiratory and expiratory. Pt has had no complaints of pain this shift. Pt is receiving NS @50ml/hr. Pt has used the urinal independently this shift.
[2021-09-11 07:03] LABS: Basophils % 0.2 % (0.1-2.0); Eosinophils % 0.1 % (0.1-12.0); Hematocrit 34.2 % (42.0-52.0); Hemoglobin 11.3 g/dL (14.1-18.0); Lymphocytes # 1.2 K/mm3 (0.7-4.5); Lymphocytes % 9.4 % (10-50); Mean Corpuscular Hemoglobin 29.5 pg (27.0-31.2); Mean Corpuscular Volume 89.4 fl (80-94); Mean Platelet Volume 6.7 fl (7.4-10.4); Monocytes # 1.2 K/mm3 (0.1-1.0); Monocytes % 9.1 % (1.7-9.3); Neutrophils # 10.2 K/mm3 (1.8-7.8); Neutrophils % 81.2 % (37.0-80.0); Platelet Count 436 K/mm3 (142-424); Red Blood Count 3.83 M/mm3 (4.60-6.20); Red Cell Distribution Width 13.1 % (11.5-17.5); White Blood Count 12.6 K/mm3 (4.8-10.8)
[2021-09-11 07:11] LABS: Alanine Aminotransferase 21 U/L (12-78); Albumin Level 2.5 g/dl (3.5-5.0); Albumin/Globulin Ratio 0.9 (1.1-1.8); Alkaline Phosphatase 65 U/L (38-126); Anion Gap 5.2 mEq/L (5-15); Aspartate Amino Transferase 28 U/L (17-59); Bilirubin,Total < 0.1 mg/dl (0.2-1.3); Blood Urea Nitrogen 10 mg/dl (9-20); Calcium 7.5 mg/dl (8.4-10.2); Carbon Dioxide 29 mmol/L (22.0-30.0); Chloride 99 mmol/L (98-107); Creatinine Clearance Estimated 62 mL/min (50-200); Estimated Glomerular Filt Rate 165 ml/min (>60); GFR (African American) 199 ML/MIN (>60); Globulin 2.8 g/dL (1.3-3.2); Glucose 115 mg/dl (74-100); Potassium 3.2 mmoL/L (3.5-5.1); Sodium 130 mmol/L (136-145); Total Protein,Serum 5.3 g/dl (6.3-8.2)
--- NOTE | 2021-09-11 08:33 | HMH.DCSUM ---
General - General Admission date:: 09/09/21 Discharge date: 09/11/21 HPI HPI: 71-year-old white male with history of alcohol abuse and COPD, who was admitted to the hospital in May, but has not followed up with recommended office appointments. He was also contemplated admission to rehabilitation facility for his alcoholism but decided not to pursue this. He has moved to [facility], and is apparently looking to get into some type of subsidized housing, but is currently living with a friend in [facility] and has some support from his sister. He became afflicted with congestion, cough and shortness of air last night, came to the emergency department. ER work-up revealed COPD exacerbation and infiltrate on chest x-ray and CT showed evidence of bronchial swelling suspicious for malignancy with postobstructive pneumonia. Hospital Course Hospital Course: Patient was admitted for COPD exacerbation and possible postobstructive pneumonia. He was placed on Levaquin and clindamycin. He felt better over the next 24 hours. Pulmonary was consulted. Recommended pursuing bronchoscopy and this was performed yesterday morning with no evidence of endobronchial lesions, but BAL and multiple biopsies were obtained as well as sputum culture from the procedure. The results of all these things are pending. Pulmonary recommended continuing just clindamycin. This morning the patient was doing well, felt better. Wish to be discharged home and was stable on his normal dose of oxygen. Patient is a long history of noncompliance with follow-up appointments. I emphasized the importance of an up with me next week at the [facility] in [place]. We will continue clindamycin and dexamethasone discharge. He will continue his neb treatments. Is going to be discharged home with care from family members. He is pursuing admission to a subsidized senior citizens type apartment complex in the [facility]. He continues to drink fairly heavily, 5 or 6 beers daily but this is down from his alcohol intake several months ago which was 20-30 beers daily per his family's report. I encouraged him to continue trying to cut down on a gradual basis. He continues to smoke and I am not sure if the possibility of quitting at this point given his age and multiple psych comorbidities. Objective Vital signs: Temp Pulse Resp BP Pulse Ox 98.0 F 81 18 114/57 L 98 09/11/21 03:46 09/11/21 06:17 09/11/21 03:46 07/20/22 03:46 09/11/21 06:17 no acute distress - *Routine HEENT Exam Head: Present: normocephalic Eye: Present: EOMI, PERRL ENT: Present: mucous membranes moist - *Routine Neck Exam Present: supple - *Routine Respiratory Exam Present: prolonged expiratory phase, rhonchi. Absent: accessory muscle use - *Routine Cardiovascular Exam Present: RRR - *Routine Abdominal Exam Present: soft, normoactive bowel sounds. Absent: tenderness - *Routine Extremities Exam Absent: cyanosis, clubbing, edema - *Routine Skin Exam Present: warm. Absent: rash - Detailed Eye Exam Eyelids: Bilateral normal inspection Results Labs on day of discharge: Labs from last 24 hours 09/11/21 09/11/21 06:27 06:27 WBC 12.6 H RBC 3.83 L Hgb 11.3 L Hct 34.2 L MCV 89.4 MCH 29.5 MCHC 33.0 RDW 13.1 Plt Count 436 H MPV 6.7 L Neut % (Auto) 81.2 H Lymph % (Auto) 9.4 L Bledsoe % (Auto) 9.1 Eos % (Auto) 0.1 Baso % (Auto) 0.2 Neut # (Auto) 10.2 H Lymph # (Auto) 1.2 Bledsoe # (Auto) 1.2 H Eos # (Auto) 0.0 Baso # (Auto) 0.0 Sodium 130 L Potassium 3.2 L Chloride 99 Carbon Dioxide 29 Anion Gap 5.2 BUN 10 Creatinine 0.50 L D Estimated Creat Clear 62 Estimated GFR 165 Est GFR ( Amer) 199 D Glucose 115 H Calcium 7.5 L Total Bilirubin < 0.1 L AST 28 D ALT 21 Alkaline Phosphatase 65 Total Protein 5.3 L Albumin 2.5 L Globulin 2.8 Albumin
--- NOTE | 2021-09-11 08:48 | PC.NURSE ---
Spoke to Samira who stated she was working today when asked about picking pt up for d/c. Called pt's [facility] and left a message on voicemail.
--- NOTE | 2021-09-11 09:33 | HMH.PULMPN ---
Internal Medicine - PN: Subj *Date: 09/11/21 *Time: 10:46 Interval history: No acute respiratory vents overnight. Patient admits symptoms returned to baseline. Exam - Constitutional Constitutional:: Present: no acute distress, comfortable - HENMT Exam HENMT: Present: normocephalic - Eye Exam Eyes:: Present: normal appearance both eyes and related structures - Neck Exam Neck:: Present: normal visual inspection - Respiratory Exam Respiratory:: Present: able to speak in complete sentences, no respiratory distress, wheezing - Cardiovascular Exam Cardiac:: Present: S1, S2 - GI Exam GI:: Present: soft - Skin Exam Skin: Present: warm, no rash - Neurological Exam Neurological: Present: alert, awake - Extremities Exam Extremities: Present: no cyanosis, no clubbing - Psychiatric Exam Psychiatric: Present: normal affect Assessment and Plan (1) Acute exacerbation of chronic obstructive airways disease Status: Acute Category: Medical Code(s): J44.1 - Chronic obstructive pulmonary disease with (acute) exacerbation (2) Bronchial obstruction Status: Acute Category: Medical Code(s): J98.09 - Other diseases of bronchus, not elsewhere classified (3) Tobacco use disorder Status: Chronic Category: Medical Code(s): F17.200 - Nicotine dependence, unspecified, uncomplicated (4) Alcohol abuse Status: Acute Category: Social Hx Code(s): F10.10 - Alcohol abuse, uncomplicated - Assessment and plan all Dx Assessment and Plan for all problems:: #COPD exacerbation: 71-year-old male current smoker greater than 76-tion-mluo smoking history, used to smoke 2 to 3 packs a day, currently down to half pack a day most recent exacerbation April 2019.. Presented with worsening respiratory distress along with cough and worsening productive productive phlegm. Afebrile. No evidence of leukocytosis. CTA on admission other than left lower lobe collapse, no evidence of other dense consolidation noted. Patient was initiated on antibiotics nebs and steroids on admission. On examination patient does not appear to be in any respiratory distress. Saturating 96% on 3 L nasal cannula. Interval update: Continued improvement in respiratory symptoms and distress. Chest continues to show wheezing unchanged from yesterday. Improving oxygen commenced, weaned to 2 L Saturations maintained at 92% above. Patient chronic long-term oxygen therapy at home at 2 L Plan:- -Trelegy 100 inhaler along with DuoNebs every 6 hours on as-needed basis. Medications refilled. -Prednisone 40 mg daily x5 days -Continue clindamycin x 5 days. #Left lower lobe collapse: #Greater than 40-znsf-zlxn smoking: Current smoker greater than 30-bdss-nepc CT on admission showed left lower lobe collapse along with possible endobronchial lesion/mucous plugging. No significant mediastinal or hilar lymphadenopathy noted. Non-compliant with follow ups. We will schedule bronchoscopy while inpatient INR 1.26 Status post bronchoscopy, no endobronchial lesion noted. We will follow bronchoscopy BAL results. BAL staining no organisms so far. Plan: -Follow in pulmonary clinic in 7 days. #Thank you for involving pulmonary in this patient care. Follow the patient in pulmonary clinic in 7 days for bronchoscopy results.
--- NOTE | 2021-09-11 09:42 | PC.NURSE ---
was able to get ahold of the niece, gordon, she states she does not have a way to come get pt right now. shes going to call another family member to possibly pick him up. awaiting for a call back
--- NOTE | 2021-09-11 10:43 | PC.NURSE ---
Talked to Samira Nunez who cant pick pt up until after 1300. Patient's niece Gilda stated she could not find a ride.
--- NOTE | 2021-09-11 13:51 | PC.NURSE ---
WILL ASSISTED PT TO VEHICLE VIA WHEELCHAIR
--- NOTE | 2021-09-12 14:54 | CARE MANAGER ---
Spoke with patient's friend, Samira, who he stays with. She states he is doing well. They picked up his medications and he is aware of his follow up appointments. Denies any questions or concerns at this time.SIMBA Barfield
== END 2021-09-11 13:53 | disposition home or self-care (01) | DRG 191 ==
LOC: ER 21:50 → 2ND 09-09 01:53
PROVIDERS: Internal Medicine Pulmonary Disease; Admitting Provider Internal Medicine Adolescent Medicine; Emergency Provider Emergency Medicine; PCP Internal Medicine Adolescent Medicine; Visit Provider Internal Medicine Adolescent Medicine
PROC: 0BDJ8ZX Extraction of Left Lower Lung Lobe, Via Natural or Artificial Opening Endoscopic, Diagnostic (ICD-10-PCS; principal; 2021-09-10 11:15)
DX: J44.1 Chronic obstructive pulmonary disease with (acute) exacerbation (principal); E87.1 Hypo-osmolality and hyponatremia; J98.19 Other pulmonary collapse; F10.20 Alcohol dependence, uncomplicated; E78.5 Hyperlipidemia, unspecified; I10 Essential (primary) hypertension; F17.200 Nicotine dependence, unspecified, uncomplicated; I50.9 Heart failure, unspecified; J98.09 Other diseases of bronchus, not elsewhere classified; Z91.19 Patient's noncompliance with other medical treatment and regimen
CPT/HCPCS: 31628; 36415; 71045; 71046; 71275; 76000; 80048; 80053; 80076; 81001; 82803; 83605; 83735; 83880; 84484; 85007; 85025; 85610; 85651; 86140; 87040; 87070; 87077; 87102; 87116; 87186; 87205; 87206; 88305; 88312; 89051; 93005; 94640; 94760; 94761; 99285; C9803; J1956; J2405; Q9967; U0003; U0005

== ENCOUNTER → 2021-10-17 06:07 | Outpatient (CLI) | payer MEDICARE, MEDICAID, SELFPAY ==
[2021-10-17 19:06] LABS: Anion Gap 14.7 mEq/L (5-15); Blood Urea Nitrogen 6 mg/dl (9-20); Calcium 9.2 mg/dl (8.4-10.2); Carbon Dioxide 23 mmol/L (22.0-30.0); Chloride 100 mmol/L (98-107); Estimated Glomerular Filt Rate 213 ml/min (>60); GFR (African American) 258 ML/MIN (>60); Glucose 76 mg/dl (74-100); Potassium 4.7 mmoL/L (3.5-5.1); Sodium 133 mmol/L (136-145)
== END ==
PROVIDERS: PCP Internal Medicine Adolescent Medicine; Visit Provider Internal Medicine Adolescent Medicine
DX: I50.23 Acute on chronic systolic (congestive) heart failure (principal)
CPT/HCPCS: 80048

== ENCOUNTER → 2021-11-14 07:08 | Outpatient (CLI) | payer MEDICARE, MEDICAID, SELFPAY ==
[2021-11-14 17:39] LABS: Anion Gap 15.4 mEq/L (5-15); Blood Urea Nitrogen 8 mg/dl (9-20); Calcium 8.7 mg/dl (8.4-10.2); Carbon Dioxide 26 mmol/L (22.0-30.0); Chloride 98 mmol/L (98-107); Estimated Glomerular Filt Rate 213 ml/min (>60); GFR (African American) 258 ML/MIN (>60); Glucose 82 mg/dl (74-100); Potassium 4.4 mmoL/L (3.5-5.1); Sodium 135 mmol/L (136-145)
== END ==
PROVIDERS: PCP Internal Medicine Adolescent Medicine; Visit Provider Internal Medicine Adolescent Medicine
DX: I50.33 Acute on chronic diastolic (congestive) heart failure (principal)
CPT/HCPCS: 80048

== ENCOUNTER 2022-03-28 11:55 | Emergency (ER) | payer MEDICARE, MEDICAID, SELFPAY ==
[2022-03-28 11:56] VITALS: BP 138/68; PULSE 71; RESP 17; TEMP 36.6; O2SAT 99; BMI 22.4
--- NOTE | 2022-03-28 12:37 | HMH.EDGENADL ---
Discharge Plan Disposition Patient Disposition: Home, Self-Care Prescriptions Prescriptions: No Action albuterol sulfate 90 mcg/actuation HFA aerosol inhaler 2 inh IH QID PRN (Reason: shortness of breath or wheezing) 90 Days Qty: 8.5 2RF gabapentin 100 mg capsule 100 mg PO HS Qty: 90 2RF ipratropium-albuterol 0.5 mg-3 mg(2.5 mg base)/3 mL solution for nebulization 3 ml IH QID PRN (Reason: shortness of breath or wheezing) 90 Days Qty: 270 3RF Entresto 24-26 mg tablet 1 tab PO BID Qty: 60 2RF Trelegy Ellipta 100-62.5-25 mcg blister with device 1 inh IH DAILY 90 Days Qty: 90 3RF triamcinolone acetonide 0.1 % cream 1 applic topical DAILY Qty: 80 2RF Referrals Follow up/Referrals: Provider,Referral, MD [Primary Care Provider] - See instructions Activity Restrictions/Add. Instructions Additional Instructions/Restrictions: Your CTA showed moderate to severe proximal stenosis with three-vessel runoff to distal lower extremities. While you do not need emergent vascular surgery intervention it is imperative that you follow-up closely with vascular surgeon to discuss interventions a list has been provided to you for both [facility] you and physicians you may call he would like. Please return with sudden or severe worsening of your symptoms including tissue that is turning black loss of sensation or loss of motor function. Clinical Impressions Clinical Impression: Peripheral vascular disease Discharge ED Provider: Sergio Rodriguez Adult HPI General Chief complaint: PAIN Stated complaint: feet swollen, phy ref Time Seen by Provider: 03/28/22 12:37 Mode of Arrival: Ambulatory Source of Information: Patient Limitations: No Limitations Description of Symptoms (Recalled from ER Triage Doc. by RN): 71 M presents with 1 week of BLE swelling from calf down. Patient denies history of heart failure or peripheral edema, chest pain, SOA, fever, or chills. Patient ambulates well, but reports pain with walking. NAD otherwise. VSS. History of Present Illness HPI narrative: Patient is a 71-year-old male presenting with concerns for bilateral lower extremity ischemia from his primary care physician. States that he has had over the last week increasing swelling erythema decreased sensation and increasing pain in bilateral lower extremities left greater than right. Pain is mild at the moment as his doctor was unable to palpate DP or PT pulses in the left lower extremity and thus sent him to the emergency department. There is been no ischemia from history. No tissue loss. No motor loss. Patient still has sensation throughout bilateral lower extremities. Denies a history of peripheral vascular disease or atrial fibrillation. Related Data Previous Rx's Medication Instructions Recorded albuterol sulfate 90 mcg/actuation 2 inh inhalation QID PRN shortness 01/14/22 aerosol inhaler of breath or wheezing 90 days #8.5 grams fluticasone fur. 100 mcg-umeclid 1 inh inhalation DAILY 90 days #90 01/14/22 62.5 mcg-vilant 25 mcg ea inhalat.powder (Trelegy Ellipta) gabapentin 100 mg capsule 100 mg PO HS #90 caps 01/14/22 ipratropium 0.5 mg-albuterol 3 mg 3 ml inhalation QID PRN shortness 01/14/22 (2.5 mg base)/3 mL nebulization of breath or wheezing 90 days #270 soln mL sacubitril 24 mg-valsartan 26 mg 1 tab PO BID #60 tabs 01/14/22 tablet (Entresto) triamcinolone acetonide 0.1 % 1 applic topical DAILY #80 grams 01/14/22 topical cream Allergies Allergy/AdvReac Type Severity Reaction Status Date / Time No Known Allergies Allergy Verified 03/28/22 10:50 [facility] Disclaimer: The information contained in this section may have been updated after the patient was seen, as this information can be updated by other users. Medical History Collapse of left lung COPD (chronic obstructive pulmonary disease) Dyspnea on exertion Pacemaker Pulmonary emphysema Screening for lung cancer Skull fracture
--- NOTE | 2022-03-28 12:47 | CT_ITS ---
FINAL REPORT CLINICAL HISTORY: distal absetn pulses over weeks L worse than R FINDINGS: Thin section axial CT images of the abdomen, pelvis and lower extremities were obtained with contrast. Multiplanar reformatted images were also obtained and reviewed. ABDOMEN AND PELVIS: There is diffuse vascular calcification. There is no abdominal aortic aneurysm or dissection. The celiac axis and proximal superior mesenteric artery are unremarkable. There is no renal artery stenosis. The inferior mesenteric artery is patent. There is moderate to high-grade stenosis of the bilateral common iliac arteries. The external and internal iliac arteries are patent. RIGHT LOWER EXTREMITY: The right common femoral artery is patent. There are multiple mild stenoses of the superficial femoral artery. The right deep femoral artery is patent. The popliteal artery is patent but of small caliber. There are multifocal stenoses of the anterior and posterior tibial arteries. The distal peroneal artery is occluded. The anterior tibial artery is occluded at the ankle. LEFT LOWER EXTREMITY: The left common femoral artery is patent. There is multifocal mild stenosis of the superficial femoral artery. The left deep femoral artery is patent. The left popliteal artery is patent but of small caliber. There are multiple stenosis of the anterior and posterior tibial and peroneal arteries. 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 Three-vessel disease in both distal lower legs. Reviewed, Interpreted and Dictated by Alban Dailey III, MD Transcribed by Glendy Ponce Authenticated and . [facility]
--- NOTE | 2022-03-28 12:48 | PC.NURSE ---
notified ER is order CTA with runs off, spoke with bety
[2022-03-28 13:03] LABS: Basophils # 0.3 K/mm3 (0-0.2); Basophils % 3.1 % (0.1-2.0); Eosinophils # 0.4 K/mm3 (0.0-0.4); Eosinophils % 3.8 % (0.1-12.0); Hematocrit 44.7 % (42.0-52.0); Hemoglobin 14.8 g/dL (14.1-18.0); Lymphocytes # 1.3 K/mm3 (0.7-4.5); Lymphocytes % 13.5 % (10-50); Mean Corpuscular Hemoglobin 31.6 pg (27.0-31.2); Mean Corpuscular Volume 95.6 fl (80-94); Mean Platelet Volume 7.4 fl (7.4-10.4); Monocytes # 0.7 K/mm3 (0.1-1.0); Monocytes % 7.1 % (1.7-9.3); Neutrophils # 6.9 K/mm3 (1.8-7.8); Neutrophils % 72.4 % (37.0-80.0); Platelet Count 342 K/mm3 (142-424); Red Blood Count 4.68 M/mm3 (4.60-6.20); Red Cell Distribution Width 13.5 % (11.5-17.5); White Blood Count 9.5 K/mm3 (4.8-10.8)
[2022-03-28 13:11] LABS: Alanine Aminotransferase 24 U/L (12-78); Albumin Level 4.6 g/dl (3.5-5.0); Albumin/Globulin Ratio 1.4 (1.1-1.8); Alkaline Phosphatase 101 U/L (38-126); Anion Gap 10.3 mEq/L (5-15); Aspartate Amino Transferase 36 U/L (17-59); Bilirubin,Total 0.7 mg/dl (0.2-1.3); Blood Urea Nitrogen 7 mg/dl (9-20); Carbon Dioxide 25 mmol/L (22.0-30.0); Chloride 97 mmol/L (98-107); Creatinine Clearance Estimated 64 mL/min (50-200); Estimated Glomerular Filt Rate 112 ml/min (>60); GFR (African American) 135 ML/MIN (>60); Globulin 3.2 g/dL (1.3-3.2); Glucose 82 mg/dl (74-100); Potassium 4.3 mmoL/L (3.5-5.1); Sodium 128 mmol/L (136-145); Total Protein,Serum 7.8 g/dl (6.3-8.2)
[2022-03-28 14:00] VITALS: BP 146/49; PULSE 85; O2SAT 98
--- NOTE | 2022-03-28 14:23 | PC.NURSE ---
Patient back from CT
[2022-03-28 14:30] VITALS: BP 149/69; PULSE 93; O2SAT 98
[2022-03-28 15:00] VITALS: BP 163/65; PULSE 104; O2SAT 97
[2022-03-28 16:02] VITALS: BP 143/71; PULSE 71; RESP 17; TEMP 36.8; O2SAT 95
--- NOTE | 2022-03-28 16:23 | PC.NURSE ---
placed call to [facility] for appopintment for pt., information faxed they will call pt to arrange appointment
== END 2022-03-28 16:27 | disposition home or self-care (01) ==
PROVIDERS: Emergency Provider Student in an Organized Health Care Education/Training Program
DX: I73.9 Peripheral vascular disease, unspecified (principal); J44.9 Chronic obstructive pulmonary disease, unspecified; Z95.0 Presence of cardiac pacemaker; F17.210 Nicotine dependence, cigarettes, uncomplicated; Z87.19 Personal history of other diseases of the digestive system; Z83.3 Family history of diabetes mellitus; Z82.49 Family history of ischemic heart disease and other diseases of the circulatory system; Z80.9 Family history of malignant neoplasm, unspecified; Z81.1 Family history of alcohol abuse and dependence
CPT/HCPCS: 73701; 80053; 85025; 99285; Q9967

== ENCOUNTER 2023-06-22 18:00 | Outpatient (CLI) | payer MEDICARE, MEDICAID, SELFPAY ==
[2023-06-22 17:14] LABS: Basophils # 0.2 K/mm3 (0-0.2); Basophils % 1.1 % (0.1-2.0); Eosinophils # 0.1 K/mm3 (0.0-0.4); Hematocrit 49.4 % (42.0-52.0); Hemoglobin 15.8 g/dL (14.1-18.0); Lymphocytes # 1.2 K/mm3 (0.7-4.5); Lymphocytes % 9.2 % (10-50); Mean Corpuscular HGB Conc 32.1 g/dL (31.8-35.4); Mean Corpuscular Hemoglobin 32.6 pg (27.0-31.2); Mean Corpuscular Volume 101.4 fl (80-94); Mean Platelet Volume 7.7 fl (7.4-10.4); Monocytes # 1.5 K/mm3 (0.1-1.0); Monocytes % 10.9 % (1.7-9.3); Neutrophils # 10.3 K/mm3 (1.8-7.8); Neutrophils % 77.8 % (37.0-80.0); Platelet Count 210 K/mm3 (142-424); Red Blood Count 4.87 M/mm3 (4.60-6.20); Red Cell Distribution Width 13.6 % (11.5-17.5); White Blood Count 13.3 K/mm3 (4.8-10.8)
== END 2023-06-22 23:59 | disposition home or self-care (01) ==
LOC: LAB.DROPOF 06-23 08:13
PROVIDERS: PCP Family Medicine; Visit Provider Family Medicine
DX: J44.9 Chronic obstructive pulmonary disease, unspecified (principal)
CPT/HCPCS: 85025

== ENCOUNTER 2024-05-30 09:50 | Outpatient (CLI) | payer MEDICARE, MEDICAID, SELFPAY ==
[2024-05-30 17:02] LABS: Basophils # 0.1 K/mm3 (0-0.2); Basophils % 1.2 % (0.1-2.0); Eosinophils # 0.3 K/mm3 (0.0-0.4); Eosinophils % 3.2 % (0.1-12.0); Hematocrit 47.4 % (42.0-52.0); Hemoglobin 15.8 g/dL (14.1-18.0); Lymphocytes # 1.7 K/mm3 (0.7-4.5); Lymphocytes % 21.4 % (10-50); Mean Corpuscular HGB Conc 33.3 g/dL (31.8-35.4); Mean Corpuscular Hemoglobin 32.4 pg (27.0-31.2); Mean Corpuscular Volume 97.3 fl (80-94); Mean Platelet Volume 9.4 fl (7.4-10.4); Monocytes # 0.8 K/mm3 (0.1-1.0); Monocytes % 9.8 % (1.7-9.3); Neutrophils # 4.9 K/mm3 (1.8-7.8); Neutrophils % 63.8 % (37.0-80.0); Platelet Count 245 K/mm3 (142-424); Red Blood Count 4.87 M/mm3 (4.60-6.20); White Blood Count 7.7 K/mm3 (4.8-10.8)
[2024-05-30 18:28] LABS: Alanine Aminotransferase 19 U/L (12-78); Albumin Level 4.2 g/dl (3.5-5.0); Albumin/Globulin Ratio 1.4 (1.1-1.8); Alkaline Phosphatase 88 U/L (38-126); Anion Gap 20.9 mEq/L (5-15); Aspartate Amino Transferase 29 U/L (17-59); Bilirubin,Total 1.1 mg/dl (0.2-1.3); Blood Urea Nitrogen 10 mg/dl (9-20); Calcium 9.8 mg/dl (8.4-10.2); Carbon Dioxide 21 mmol/L (22.0-30.0); Chloride 97 mmol/L (98-107); Chol/HDL Ratio 2.3 (1-3.5); Cholesterol 167 mg/dl (140-200); Estimated Glomerular Filt Rate 133 ml/min (>60); GFR (African American) 161 ML/MIN (>60); HDL Cholesterol 72 mg/dl (40-60); Potassium 4.9 mmoL/L (3.5-5.1); Sodium 134 mmol/L (136-145); Total Protein,Serum 7.2 g/dl (6.3-8.2); Triglycerides 54 mg/dl (30-150); VLDL Cholesterol 11 mg/dL (0-40)
[2024-05-30 18:38] LABS: Glucose 48 mg/dl (74-100)
[2024-05-30 18:48] LABS: Direct LDL Cholesterol 84.47 mg/dL (100-129)
[2024-05-30 18:58] LABS: Thyroid Stimulating Hormone 1.51 uIU/mL (0.465-4.68)
[2024-05-30 19:42] LABS: HIV Combo NEGATIVE (Negative)
[2024-05-30 19:49] LABS: Hepatitis C Ab Qual. W/ RFX NEGATIVE (Negative)
== END 2024-05-30 23:59 | disposition home or self-care (01) ==
LOC: LAB.DROPOF 05-31 14:50
PROVIDERS: PCP Family Medicine; Visit Provider Family Medicine
DX: I50.23 Acute on chronic systolic (congestive) heart failure (principal); J44.9 Chronic obstructive pulmonary disease, unspecified; Z11.59 Encounter for screening for other viral diseases
CPT/HCPCS: 80053; 80061; 84443; 85025; 86803; 87389